=== PATIENT | female | born 1935 | race Caucasian/White ===

== ENCOUNTER 2016-08-03 10:17 | Outpatient (CLI) | payer MEDICARE, OTHER ==
--- NOTE | 2016-08-03 15:20 | XRAY Report ---
TWO VIEW CHEST: 08/03/2016 CLINICAL INDICATION: Cough. FINDINGS: Frontal and lateral views of the chest demonstrate a normal cardiac silhouette. The lungs are hyperinflated, but clear. No effusion or pneumothorax is present. IMPRESSION: HYPERINFLATION. NO EVIDENCE OF ACUTE CARDIOPULMONARY DISEASE. JOB #: [id number] EXT JOB #:[id number]
== END 2016-08-03 10:18 | disposition home or self-care (01) ==
LOC: DI 10:17
PROVIDERS: ATTEND Family Medicine
DX: R05 Cough (principal)
CPT/HCPCS: 71020

== ENCOUNTER 2017-05-26 12:40 | Outpatient (CLI) | payer MEDICARE, OTHER ==
--- NOTE | 2017-05-29 14:12 | DEXA Report ---
DEXA SCAN: 05/26/2017 CLINICAL INDICATION: Postmenopausal. TECHNIQUE: Dual energy x-ray absorptiometry (DXA) was performed on a [employer] system. Regions measured are the AP spine, femoral neck, and, if needed, forearm. COMPARISON: None. In accordance with the International Society for Clinical Densitometry (ISCD) guidelines, data from previous exams may be reanalyzed using current recommendations and techniques. This is done to allow a more accurate basis for comparison with the current study. FINDINGS Data for the lumbar spine is as follows: REGION BMD (g/cm/cm) T-SCORE Z-SCORE L1 0.753 -3.1 -0.4 L2 0.917 -2.4 0.4 L3 1.010 -1.6 1.1 L4 1.105 -0.8 1.9 L1-L4 0.951 -1.9 0.8 NOTE: All evaluable vertebrae are used for classification. Data for the hip is as follows: REGION BMD (g/cm/cm) T-SCORE Z-SCORE Neck 0.487 -4.0 -1.3 TOTAL 0.549 -3.6 -1.0 NOTE: The femoral neck or total proximal femur, whichever is lowest, is used for classification. IMPRESSION WHO CLASSIFICATION BASED ON THE INTERNATIONAL REFERENCE STANDARD IS OSTEOPOROSIS. FRACTURE RISK IS HIGH. RECOMMENDATION: Patients with diagnosis of osteoporosis or osteopenia should have regular bone mineral density assessment. For those eligible for Medicare, routine testing is allowed once every 2 years. Testing frequency can be increased for patients who have rapidly progressing disease or for those who are receiving medical therapy to restore bone mass. COMMENT World Health Organization (WHO) definitions for osteoporosis and osteopenia: NORMAL BMD: T-score at 1.0 or higher, fracture risk is low. OSTEOPENIA BMD: T-score between 1.0 and -2.5, fracture risk is increased. OSTEOPOROSIS BMD: T-score at 2.5 or lower, fracture risk high. National Osteoporosis Foundation recommends: 1. Obtain adequate dietary calcium (at least 1200 mg per day) and vitamin D (400 -800 international units per day). 2. Participate, as appropriate, in regular weightbearing and muscle- strengthening exercise. 3. Avoid tobacco use and reduce alcohol and caffeine intake. 4. For more detailed information see the website at www.NOF.org. TD: 05/27/2017 06:58 TU
== END 2017-05-26 12:41 | disposition home or self-care (01) ==
LOC: DI 12:40
PROVIDERS: ATTEND Family Medicine
DX: M81.0 Age-related osteoporosis without current pathological fracture (principal); Z78.0 Asymptomatic menopausal state
CPT/HCPCS: 77080

== ENCOUNTER 2017-09-21 13:37 | Outpatient (CLI) | payer MEDICARE, OTHER ==
--- NOTE | 2017-09-21 15:22 | XRAY Report ---
Procedure Date: 09/21/2017 Accession Number: [id number] / [id number] Procedure: XRN - Ankle 3 View LT CPT Code: FULL RESULT: EXAM: LEFT ANKLE RADIOGRAPHY EXAM DATE: 09/21/2017 02:04 PM. CLINICAL HISTORY: Foot and ankle pain after tripping over a rock. COMPARISON: FOOT 3 VIEW LT 09/21/2017. TECHNIQUE: 3 views. FINDINGS: Bones: Diffusely demineralized. No fractures or bone lesions. Joints: There is a tibiotalar joint effusion. No subluxations. The ankle mortise is normally aligned. Soft Tissues: There is soft tissue swelling around the lateral malleolus. IMPRESSION: 1. No acute osseous abnormality of the left ankle. Bones are diffusely demineralized. 2. A tibiotalar joint effusion is present. 3. There is soft tissue swelling of the lateral malleolus. RADIA
--- NOTE | 2017-09-21 15:23 | XRAY Report ---
Procedure Date: 09/21/2017 Accession Number: [id number] / [id number] Procedure: XRN - Foot 3 View LT CPT Code: FULL RESULT: EXAM: LEFT FOOT RADIOGRAPHY EXAM DATE: 09/21/2017 02:04 PM. CLINICAL HISTORY: Foot and ankle pain after tripping over a rock. COMPARISON: ANKLE 3 VIEW LT 09/21/2017. TECHNIQUE: 3 nonweightbearing views. FINDINGS: Bones: Diffusely demineralized. No fractures or bone lesions. Joints: No subluxation or dislocation. There is mild joint space narrowing, subchondral sclerosis, and marginal osteophyte formation at the first metatarsophalangeal joint. A tibiotalar joint effusion is present. Soft Tissues: Soft tissue swelling around the lateral malleolus is better seen on dedicated ankle radiographs. IMPRESSION: 1. No acute osseous abnormality. Bones are diffusely demineralized. 2. 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 3. A tibiotalar joint effusion is present. RADIA
== END 2017-09-21 13:38 | disposition home or self-care (01) ==
LOC: DI.N 13:37
PROVIDERS: ATTEND Family Medicine
DX: M19.072 Primary osteoarthritis, left ankle and foot (principal); M25.472 Effusion, left ankle; M81.0 Age-related osteoporosis without current pathological fracture

== ENCOUNTER 2017-12-22 10:59 | Outpatient (CLI) | payer MEDICARE, OTHER ==
--- NOTE | 2017-12-22 14:18 | Ultrasound Report ---
Reason: PVD Procedure Date: 12/22/2017 Accession Number: [id number] / [id number] Procedure: US - Duplex Lwr Ext Arterial RT CPT Code: FULL RESULT: EXAM: RIGHT LOWER EXTREMITY ARTERIAL DOPPLER ULTRASOUND EXAM DATE: 12/22/2017 11:42 AM. CLINICAL HISTORY: PVD. COMPARISON: None. TECHNIQUE: Real-time sonographic vascular imaging was performed by the on line csr, utilizing color-flow, Doppler flow, and spectral analysis. Multiple goodwill representative static images were saved for review. FINDINGS: All sampled vessels demonstrate expected arterial waveforms with preserved brisk arterial upstrokes throughout the right lower extremity. Vessels are patent by color Doppler and by subjective grayscale examination. Subjectively, there is mild to moderate atherosclerotic disease burden, predominantly of the echogenic shadowing variety. RIGHT: HANDBAG FRAMES INSPECTOR: 85 cm/sec. SFA Proximal: 73 cm/sec. SFA Mid: 79 cm/sec. SFA Distal: 52 cm/sec. PVA: 50 cm/sec. Popliteal: 38 cm/sec. ALYSE Distal: 54 cm/sec. MOLD FINISHER: 25 cm/sec. Peroneal Distal: 53 cm/sec. DPA: 7 cm/sec. IMPRESSION: Preserved 3 vessel outflow to the level of the ankle. Subjectively mild to moderate atherosclerotic disease. RADIA
== END 2017-12-22 11:00 | disposition home or self-care (01) ==
LOC: DI 10:59
PROVIDERS: ATTEND Family Medicine
DX: I70.201 Unspecified atherosclerosis of native arteries of extremities, right leg (principal)

== ENCOUNTER 2018-02-01 08:28 | Outpatient (CLI) | payer MEDICARE, OTHER | END 2018-02-01 08:29 | disposition critical access hospital (66) | LOC: EMS 08:28 | PROVIDERS: ATTEND Surgery | DX: R53.1 Weakness (principal); R19.7 Diarrhea, unspecified; R05 Cough | CPT/HCPCS: A0425; A0427 ==

== ENCOUNTER 2018-02-01 08:49 | Emergency (ER) | payer MEDICARE, OTHER ==
[2018-02-01] MEDS ORDERED: SODIUM CHLORIDE 0.9% 1,000 ML IV ONE (09:17)
[2018-02-01 09:23] LABS: BASOPHILS # (AUTO) 0.1 10^3/uL (0.0-0.1); BASOPHILS % (AUTO) 0.6 %; EOSINOPHILS % (AUTO) 0.2 %; HGB - HEMOGLOBIN 12.9 g/dL (12.0-16.0); LYMPHOCYTES # (AUTO) 1.3 10^3/uL (1.5-3.5); LYMPHOCYTES % (AUTO) 6.1 %; MEAN CORPUSCULAR HEMOGLOBIN 31.3 pg (27.0-31.0); MEAN CORPUSCULAR HGB CONC 33.5 g/dL (32.0-36.0); MEAN CORPUSCULAR VOLUME 93.4 fL (81.0-99.0); MEAN PLATELET VOLUME 8.9 fL (7.9-10.8); MONOCYTES # (AUTO) 2.1 10^3/uL (0.0-1.0); MONOCYTES % (AUTO) 9.8 %; NEUTROPHILS # (AUTO) 17.6 10^3/uL (1.5-6.6); NEUTROPHILS % (AUTO) 83.3 %; PLT - PLATELET COUNT 194 10^3/uL (130-450); RED BLOOD COUNT 4.14 10^6/uL (4.20-5.40); RED CELL DISTRIBUTION WIDTH 13.3 % (12.0-15.0); WHITE BLOOD COUNT 21.1 x10^3/uL (4.8-10.8)
--- NOTE | 2018-02-01 09:37 | XRAY Report ---
Reason: cough and dyspnea Procedure Date: 02/01/2018 Accession Number: [id number] / [id number] Procedure: XR - Chest 2 View X-Ray CPT Code: 86575 FULL RESULT: EXAM: CHEST RADIOGRAPHY EXAM DATE: 02/01/2018 09:24 AM. CLINICAL HISTORY: Cough and dyspnea. COMPARISON: CHEST 2 VIEW PA/LAT 08/03/2016 10:20 AM. TECHNIQUE: 2 views. FINDINGS: Lungs/Pleura: No focal opacities evident. No pleural effusion. No pneumothorax. Overall paucity of lung markings. Lung volumes are high with flattening of the diaphragms, stable compared to 2017 and most often seen with obstructive lung disease. Mediastinum: Heart and mediastinal contours are stable including subtle calcifications of the aortic arch. Other: None. IMPRESSION: COPD with no superimposed consolidative airspace disease. RADIA
[2018-02-01 09:42] LABS: RBC MORPHOLOGY (MULTIPLE) 2+ ANISOCYTOSIS (NORMAL)
--- NOTE | 2018-02-01 10:01 | ED Physician Documentation ---
History of Present Illness - Stated complaint Stated Complaint: WEAKNESS - Chief complaint Chief Complaint: Abd Pain - History obtained from History obtained from: Patient, EMS - Additonal information Additional information: The patient is an 82-year-old female who arrives via ambulance complaining of generalized weakness, with cough and shortness of breath. She has had a cough for about 2 weeks but it has become productive of sputum the past 3 days. She denies chest pain, and is uncertain whether or not she has had a fever. She has felt generally ill, with decreased appetite. She reports watery diarrhea for the past 2 days. She denies abdominal pain or vomiting. She denies headache or sore throat, and denies dysuria. She was recently treated with an oral antifungal medication for thrush. Past medical history is significant for COPD, and she continues to smoke cigarettes. She has history of IA and history of CVA. Review of Systems Constitutional: reports: Fever (Uncertain), Fatigue Ears: denies: Tinnitus/ringing Nose: denies: Congestion Throat: denies: Sore throat Cardiac: denies: Chest pain / pressure Respiratory: reports: Dyspnea, Cough GI: reports: Diarrhea. denies: Abdominal Pain, Nausea, Vomiting : denies: Dysuria Skin: denies: Rash Musculoskeletal: denies: Extremity swelling Neurologic: reports: Generalized weakness. denies: Focal weakness, Numbness, Headache PD PAST MEDICAL HISTORY - Past Medical History Cardiovascular: Hypertension, High cholesterol, [place] Respiratory: COPD Neuro: CVA Endocrine/Autoimmune: None GI: None SHANK RANDER: None : Incontinence HEENT: None Psych: None Musculoskeletal: Osteoarthritis Derm: None - Past Surgical History Past Surgical History: Yes /SHANK RANDER: Hysterectomy - Present Medications Home Medications: Ambulatory Orders Medication Instructions Recorded Confirmed Aspirin [Aspir 81] 81 mg PO DAILY 12/30/13 03/21/15 Carvedilol [Coreg] 12.5 mg PO BID 12/30/13 03/21/15 Clopidogrel [Plavix] 75 mg PO DAILY 12/30/13 03/21/15 Levalbuterol Tartrate [Xopenex Hfa] 1 inh PO QID 12/30/13 03/21/15 Losartan [Cozaar] 12.5 mg PO DAILY 12/30/13 03/21/15 Simvastatin [Zocor] 20 mg PO DAILY 12/30/13 03/21/15 Hydrocodone/Acetaminophen [[place] 1 each PO Q6H PRN #20 tablet 03/19/15 03/21/15 5-325 Tablet] Cholecalciferol (Vitamin D3) 1 mg PO DAILY 03/21/15 03/21/15 [Vitamin D] Cyanocobalamin (Vitamin B-12) 1 mg PO DAILY 03/21/15 03/21/15 [B-12] Multivit-Min/Iron Fum/Folic AC 1 mg PO DAILY 03/21/15 03/21/15 [Fzawb-Zdpsrks-Hhkdllmw Tablet] Nitroglycerin [Nitrostat] 1 mg SL DAILY 03/21/15 03/21/15 Oxycodone HCl/Acetaminophen 1 each PO Q6H PRN #14 tablet 03/21/15 [Percocet 5-325 mg Tablet] Tiotropium [place] [Spiriva 1 applic PO Q6H 03/21/15 03/21/15 Respimat] Azithromycin [Zithromax] 0 mg PO DAILY #6 tablet 02/01/18 Calcitonin,[place],Synthetic 02/01/18 [Calcitonin-[place]] Sodium Chloride [[place] Saline] 02/01/18 Teriparatide [[place]] 02/01/18 - Allergies Allergies/Adverse Reactions: Allergies Allergy/AdvReac Type Severity Reaction Status Date / Time Sulfa (Sulfonamide Allergy Unknown Unknown Verified 02/01/18 08:56 Antibiotics) tramadol HCl * [From Ultram] Allergy Unknown Unknown Verified 02/01/18 08:56 - Social History Does the pt smoke?: Yes Smoking Status: Current every day smoker Does the pt drink ETOH?: No Does the pt have substance abuse?: No - Immunizations Immunizations are current?: Yes - POLST Patient has POLST: No PD ED PE NORMAL - Vitals Vital signs reviewed: Yes (Hypertensive and tachypneic.) - General General: Alert and oriented X 3, Well developed/nourished, Other (Frail, elderly female.) - HEENT HEENT: Atraumatic, Pharynx benign - Neck Neck: Supple, no meningeal sign, No adenopathy, No JVD - Cardiac Cardiac: RRR, No murmur - Respiratory Respiratory: Clear bilaterally, Other (Tachypnea, with pursed lip breathing. No wheezes, rales, or rhonchi on auscultation.) - Abdomen Abdomen: Soft, Non tender - Back Back: No CVA TTP - Derm Derm: No rash - Extremities Extremities: No edema, No calf tenderness / cord - Neuro Neuro: Alert and oriented X 3, No motor deficit, Normal speech Results - Vitals Vitals: Oxygen O2 Source [With Activity] Room air O2 Source Room air - EKG (time done) 09:32 Rate: Rate (enter#) (84) Rhythm: NSR, CORTNEY [place]: RAD Intervals: Normal [place], RBBB, Other (LPFB) Ischemia: T wave inversion (in V2-V3.) Other comments: Other comments (Baseline wander.) - Labs Labs: Laboratory Tests 02/01/18 02/01/18 02/01/18 09:13 09:13 09:13 WBC 21.1 H RBC 4.14 L Hgb 12.9 Hct 38.6 MCV 93.4 MCH 31.3 H MCHC 33.5 RDW 13.3 Plt Count 194 MPV 8.9 Neut # (Auto) 17.6 H Lymph # (Auto) 1.3 L [place] # (Auto) 2.1 H Eos # (Auto) 0.0 Baso # (Auto) 0.1 Absolute Nucleated RBC 0.00 Nucleated RBC % 0.0 Manual Slide Review Indicated RBC Morph Micro Appear 2+ ANISOCYTOSIS Sodium 138 Potassium 3.7 Chloride 103 Carbon Dioxide 27 Anion Gap 8.0 BUN 20 Creatinine 0.6 Estimated GFR (MDRD) 96 Glucose 119 H Lactic Acid Calcium 9.2 Total Bilirubin 0.7 AST 29 ALT 14 Alkaline Phosphatase 55 Troponin I < 0.04 B-Natriuretic Peptide Total Protein 6.5 L Albumin 3.4 Globulin 3.1 Albumin/Globulin Ratio 1.1 Lipase 29 02/01/18 02/01/18 09:13 09:30 WBC RBC Hgb Hct MCV MCH MCHC RDW Plt Count MPV Neut # (Auto) Lymph # (Auto) [place] # (Auto) Eos # (Auto) Baso # (Auto) Absolute Nucleated RBC Nucleated RBC % Manual Slide Review RBC Morph Micro Appear Sodium Potassium Chloride Carbon Dioxide Anion Gap BUN Creatinine Estimated GFR (MDRD) Glucose Lactic Acid 1.0 Calcium Total Bilirubin AST ALT Alkaline Phosphatase Troponin I B-Natriuretic Peptide 206 H Total Protein Albumin Globulin Albumin/Globulin Ratio Lipase - Rads (name of study) 2-view CXR Radiology: Prelim report reviewed, EMP read contemporaneously, See rad report (COPD with no superimposed consolidative airspace disease.) PD MEDICAL DECISION MAKING - ED course Complexity details: reviewed old records, reviewed results, re-evaluated patient, considered differential, d/w patient ED course: The patient's presentation is most consistent with an acute exacerbation of COPD, with likely infectious component. Her chest x-ray does not reveal evidence of pneumonia, but she presents with productive cough, and a white blood cell count of 21.1. Her lactate level is normal at 1.0, and her chemistry panel is unremarkable, including troponin of less than 0.04. I doubt cardiac ischemia or pulmonary embolus. Treatment in the emergency department included administration of DuoNeb nebulizer, which improved her air movement. Ceftriaxone 1 g was administered IV. She is being discharged with prescription for Zithromax. I discussed with her antibiotic treatment, outpatient follow-up, as well as potentially worrisome signs or symptoms that should prompt reevaluation in the emergency department. Departure - Departure Disposition: 01 Home, Self Care Clinical Impression: COPD exacerbation, Dehydration Condition: Stable Instructions: ED COPD Flare Follow-Up: Sal Gage MD [Primary Care Provider] - Prescriptions: Azithromycin [Zithromax] 0 mg PO DAILY #6 tablet Comments: Take Zithromax daily as prescribed. Continue using your inhaler and nebulizer as previously prescribed. You can use Tylenol if needed for fever or discomfort. Follow-up with your primary physician within 1 week. Call to schedule appointment. Return to the emergency department if you develop increasing difficulty breathing, fever with shaking chills, or otherwise worsening symptoms. Discharge Date/Time: 02/01/18 13:49
[2018-02-01 10:03] LABS: ALBUMIN 3.4 g/dL (3.2-5.5); ALBUMIN/GLOBULIN RATIO 1.1 (1.0-2.2); BILIRUBIN,TOTAL 0.7 mg/dL (0.2-1.0); CALCIUM 9.2 mg/dL (8.5-10.3); CREATININE 0.6 mg/dL (0.4-1.0); TOTAL PROTEIN 6.5 g/dL (6.7-8.2)
[2018-02-01] MEDS ORDERED: cefTRIAXone 1 GM in SODIUM CHLORIDE 0.9% MINIBAG 100 ML IV STA (10:05)
[2018-02-01] MEDS ORDERED: IPRATROPIUM/ALBUTEROL 3 ML NEB INH STA (10:06)
[2018-02-01 13:47] VITALS: BP 105/63
== END 2018-02-01 13:49 | disposition home or self-care (01) ==
LOC: ED 08:49
DX: J44.1 Chronic obstructive pulmonary disease with (acute) exacerbation (principal); E86.0 Dehydration; I45.2 Bifascicular block; I49.3 Ventricular premature depolarization; E78.00 Pure hypercholesterolemia, unspecified; I25.2 Old myocardial infarction; F17.200 Nicotine dependence, unspecified, uncomplicated; Z86.73 Personal history of transient ischemic attack (TIA), and cerebral infarction without residual deficits; Z79.82 Long term (current) use of aspirin
CPT/HCPCS: 36415; 71046; 80053; 83605; 83690; 83880; 84484; 85025; 93005; 94640; 96361; 96365; 99284

== ENCOUNTER 2018-09-30 19:59 | Outpatient (CLI) | payer MEDICARE, OTHER | END 2018-09-30 20:00 | disposition critical access hospital (66) | LOC: EMS 19:59 | PROVIDERS: ATTEND Surgery | DX: R47.9 Unspecified speech disturbances (principal); R25.1 Tremor, unspecified; R21 Rash and other nonspecific skin eruption | CPT/HCPCS: A0425; A0427 ==

== ENCOUNTER 2018-09-30 20:22 | Observation (INO) | payer MEDICARE, OTHER ==
[2018-09-30] MEDS ORDERED: DOXEPIN 10 MG CAPSULE PO STA (20:39)
[2018-09-30] MEDS ORDERED: DEXAMETHASONE 10 MG/ML VIAL IVP STA (20:39)
[2018-09-30 20:47] LABS: BASOPHILS % (AUTO) 0.5 %; EOSINOPHILS # (AUTO) 0.4 10^3/uL (0.0-0.7); EOSINOPHILS % (AUTO) 4.8 %; HGB - HEMOGLOBIN 13.8 g/dL (12.0-16.0); LYMPHOCYTES # (AUTO) 2.2 10^3/uL (1.5-3.5); LYMPHOCYTES % (AUTO) 25.3 %; MEAN CORPUSCULAR HEMOGLOBIN 31.6 pg (27.0-31.0); MEAN CORPUSCULAR HGB CONC 32.5 g/dL (32.0-36.0); MEAN CORPUSCULAR VOLUME 97.3 fL (81.0-99.0); MEAN PLATELET VOLUME 10.6 fL (7.9-10.8); MONOCYTES # (AUTO) 0.9 10^3/uL (0.0-1.0); MONOCYTES % (AUTO) 10.7 %; NEUTROPHILS # (AUTO) 5.1 10^3/uL (1.5-6.6); NEUTROPHILS % (AUTO) 58.2 %; PLT - PLATELET COUNT 253 10^3/uL (130-450); RED BLOOD COUNT 4.37 10^6/uL (4.20-5.40); RED CELL DISTRIBUTION WIDTH 12.7 % (12.0-15.0); WHITE BLOOD COUNT 8.8 x10^3/uL (4.8-10.8)
--- NOTE | 2018-09-30 20:48 | ED Physician Documentation ---
History of Present Illness - Stated complaint Stated Complaint: CONFUSION/ GEN ILLNESS - Chief complaint Chief Complaint: Wound - History obtained from History obtained from: Patient - Treatment prior to arrival Treatment prior to arrival: She also notes an episode tonight that lasted about 10 or 15 minutes where she had difficulty coordinating with the right hand and garbled speech. She feels like that is all gone now. She did have a stroke about 7 years ago and does take aspirin - Additonal information Additional information: This is a very pleasant 82-year-old woman with history of COPD who presents by ambulance for itching and burning of the skin as well as cracking. She was seen by her physician about a week and a half ago for what she thought was a yeast infection. She was prescribed Diflucan, once a day for 10 days. By day 3 or 4 she was developing severe itching and burning of her skin especially in the forearms but also a little bit in the face and back and less of the legs. She is taking Benadryl for this without relief. She feels miserable from the itching. She has a little more shortness of breath than normal and a dry cough, no production. No fevers. Review of Systems Constitutional: reports: Reviewed and negative Throat: reports: Reviewed and negative Cardiac: denies: Chest pain / pressure, Palpitations Respiratory: reports: Dyspnea, Cough. 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 : Incontinence HEENT: None Psych: None Musculoskeletal: Osteoarthritis Derm: None - Past Surgical History Past Surgical History: Yes /BUSINESS PROCESS REPRESENTATIVE: Hysterectomy - Present Medications Home Medications: Ambulatory Orders Medication Instructions Recorded Confirmed Aspirin [Aspir 81] 81 mg PO DAILY 12/30/13 03/21/15 Carvedilol [Coreg] 12.5 mg PO BID 12/30/13 03/21/15 Clopidogrel [Plavix] 75 mg PO DAILY 12/30/13 03/21/15 Levalbuterol Tartrate [Xopenex Hfa] 1 inh PO QID 12/30/13 03/21/15 Losartan [Cozaar] 12.5 mg PO DAILY 12/30/13 03/21/15 Simvastatin [Zocor] 20 mg PO DAILY 12/30/13 03/21/15 Hydrocodone/Acetaminophen [[place] 1 each PO Q6H PRN #20 tablet 03/19/15 03/21/15 5-325 Tablet] Cholecalciferol (Vitamin D3) 1 mg PO DAILY 03/21/15 03/21/15 [Vitamin D] Cyanocobalamin (Vitamin B-12) 1 mg PO DAILY 03/21/15 03/21/15 [B-12] Multivit-Min/Iron Fum/Folic AC 1 mg PO DAILY 03/21/15 03/21/15 [Brnnf-Hhqrnxr-Abkbjhep Tablet] Nitroglycerin [Nitrostat] 1 mg SL DAILY 03/21/15 03/21/15 Oxycodone HCl/Acetaminophen 1 each PO Q6H PRN #14 tablet 03/21/15 [Percocet 5-325 mg Tablet] Tiotropium [place] [Spiriva 1 applic PO Q6H 03/21/15 03/21/15 Respimat] Calcitonin,[place],Synthetic 02/01/18 [Calcitonin-[place]] Sodium Chloride [[place] Saline] 02/01/18 Teriparatide [[place]] 02/01/18 - Allergies Allergies/Adverse Reactions: Allergies Allergy/AdvReac Type Severity Reaction Status Date / Time Sulfa (Sulfonamide Allergy Unknown Unknown Verified 09/30/18 20:51 Antibiotics) tramadol HCl * [From Ultram] Allergy Unknown Unknown Verified 09/30/18 20:51 - Social History Does the pt smoke?: Yes Smoking Status: Current every day smoker Does the pt drink ETOH?: No Does the pt have substance abuse?: No - Immunizations Immunizations are current?: Yes - POLST Patient has POLST: No PD ED PE NORMAL - Vitals Vital signs reviewed: Yes - General General: Alert and oriented X 3, Other (She is thin with slight pursed lip breathing but speaking in full sentences) - HEENT HEENT: PERRL, EOMI - Neck Neck: Supple, no meningeal sign, No bony TTP - Cardiac Cardiac: RRR, No murmur - Respiratory Respiratory: Other (Diminished and wheezy neck, nothing focal, nonlabored) - Abdomen Abdomen: Soft, Non tender - Back Back: No CVA TTP, No spinal TTP - Derm Derm: Other (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, and a papular rash on the forearms and less of the face and legs.) - Extremities Extremities: No edema, No calf tenderness / cord - Neuro Neuro: Alert and oriented X 3, trauma director 2-12 intact, No motor deficit, No sensory deficit, Normal speech, Other (NIHSS zero) Eye Opening: Spontaneous Motor: Obeys Commands Results - Vitals Vitals: Vital Signs - 24 hr 09/30/18 09/30/18 20:25 21:11 Temperature 36.6 C Heart Rate 87 83 Respiratory 17 28 H Rate Blood Pressure 156/94 H 138/78 H O2 Saturation 95 94 Oxygen O2 Source [] Room air O2 Source Room air - EKG (time done) 2111 Rate: Rate (enter#) (82) Rhythm: NSR [place]: Normal Intervals: Normal [place], RBBB, Other (LPFB) QRS: Normal Ischemia: Q waves (anteroseptal). No: ST elevation c/w ischemia Computer interpretation: Agree with computer - Labs Labs: Laboratory Tests 09/30/18 09/30/18 20:30 20:30 WBC 8.8 RBC 4.37 Hgb 13.8 Hct 42.5 MCV 97.3 MCH 31.6 H MCHC 32.5 RDW 12.7 Plt Count 253 MPV 10.6 Neut # (Auto) 5.1 Lymph # (Auto) 2.2 [place] # (Auto) 0.9 Eos # (Auto) 0.4 Baso # (Auto) 0.0 Absolute Nucleated RBC 0.00 Nucleated RBC % 0.0 Sodium 143 Potassium 4.0 Chloride 108 Carbon Dioxide 28 Anion Gap 7.0 BUN 10 Creatinine 0.6 Estimated GFR (MDRD) 96 Glucose 115 H Calcium 9.3 Total Bilirubin 0.2 AST 20 ALT 12 Alkaline Phosphatase 51 Total Protein 6.4 L Albumin 3.8 Globulin 2.6 Albumin/Globulin Ratio 1.5 Lipase 38 - Rads (name of study) CT head Radiology: EMP read contemporaneously (NAD) PD MEDICAL DECISION MAKING - ED course ED course: 82-year-old woman with history of stroke on aspirin and Plavix presents with a 10 to 15-minute episode of garbled speech and difficulty with the right hand this evening consistent with a TIA. Her symptoms have completely resolved and her NIH stroke scale here is 0 with a negative head CT. She also has an ancillary complaint of a very itchy rash on her arms after being on Diflucan which she has since stopped for that. For this she was administered dexamethasone and doxepin. Spoke with Dr. Trevizo for observation because of the TIA at 9:57 PM. Departure - Departure Disposition: ED Place in Observation Clinical Impression: TIA (transient ischemic attack), Rash and nonspecific skin eruption Condition: Stable
[2018-09-30 21:00] LABS: ALBUMIN 3.8 g/dL (3.2-5.5); ALBUMIN/GLOBULIN RATIO 1.5 (1.0-2.2); BILIRUBIN,TOTAL 0.2 mg/dL (0.2-1.0); CALCIUM 9.3 mg/dL (8.5-10.3); CREATININE 0.6 mg/dL (0.4-1.0); TOTAL PROTEIN 6.4 g/dL (6.7-8.2)
--- NOTE | 2018-09-30 21:48 | CT Report ---
Reason: TIA Procedure Date: 09/30/2018 Accession Number: [id number] / [id number] Procedure: CT - HEAD WO CPT Code: FULL RESULT: EXAM: CT HEAD EXAM DATE: 09/30/2018 09:36 PM. CLINICAL HISTORY: TIA. COMPARISON: None. TECHNIQUE: Multiaxial CT images were obtained from the foramen magnum to the vertex. Reformats: Sagittal and coronal. IV contrast: None. In accordance with CT protocol optimization, one or more of the following dose reduction techniques were utilized for this exam: automated exposure control, adjustment of mA and/or KV based on patient size, or use of iterative reconstructive technique. FINDINGS: Parenchyma: No intraparenchymal hemorrhage. No evidence of mass, midline shift, or CT findings of infarction. Jung-white differentiation is distinct. Extraaxial Spaces: Normal for age. No subdural or epidural collections identified. Ventricles: Normal in size and position. Sinuses and Orbits: Imaged paranasal sinuses, orbits, and mastoids show no significant abnormality. Bones: No evidence of fracture or calvarial defect. Other: None. IMPRESSION: No acute intracranial abnormality. RADIA
[2018-09-30] MEDS ORDERED: ASPIRIN CHEW 81 MG TABLET PO STA (21:56)
[2018-09-30] MEDS ORDERED: SODIUM CHLORIDE FLUSH 0.9% 10 ML SYRINGE IVP PRN (21:58)
[2018-09-30 22:04] LABS: BILIRUBIN,URINE NEGATIVE (NEGATIVE); GLUCOSE, URINE (UA) NEGATIVE (NEGATIVE); KETONES,URINE (UA) NEGATIVE (NEGATIVE); LEUKOCYTE ESTERASE, URINE SMALL (NEGATIVE); NITRITE,URINE NEGATIVE (NEGATIVE); OCCULT BLOOD,URINE SMALL (NEGATIVE); PROTEIN,URINE NEGATIVE (NEGATIVE); UROBILINOGEN,URINE 0.2 (NORMAL) E.U./dL (NORMAL)
[2018-09-30 22:08] LABS: CLARITY,URINE CLEAR (CLEAR)
[2018-09-30] MEDS ORDERED: ATORVASTATIN 40 MG TABLET PO STA (22:08)
[2018-09-30 22:18] LABS: RBC,URINE 0-5 /HPF (0-5)
[2018-09-30 22:19] LABS: BACTERIA,URINE None Seen /HPF (None Seen); SQUAMOUS EPITHELIAL CELL,UR RARE Squamous (<= Few)
[2018-09-30] MEDS: SODIUM CHLORIDE 0.9% 1,000 ML IV SCH (22:46)
--- NOTE | 2018-09-30 23:45 | HISTORY & PHYSICAL EXAMINATION ---
Chief Complaint - Chief Complaint Chief Complaint: right hand weakness, slurred speech, itching History of Present Illness - Admitted From Admitted From:: [facility] ED - History Obtained From Records Reviewed: yes History obtained from: patient - History of Present Illness HPI Comment/Other: Patient seen on 09/30/18 at 2245pm. Patient is a 82 y/o female who presented to the ED with complain of slurred speech and difficulty using her right hand. This happened around 6:30pm and lasted for about 10-15 mins. Symptoms had completely resolved upon presentation to the ED. She has a history of CVA in the past with no residual deficits. On a separate note she also complained of burning, redness, itching and peeling of her skin. She was placed on a 10 day course of diflucan for a yeast infection. She denied any other new medications, lotions or detergents. She denied chest pain. She reports feeling dyspneic, however she appears to be breathing comfortably on room air. She denied abdominal pain or vomiting but reports nausea and diarrhea. She reports chills but no fever. The rest of her history is unremarkable. As a result of her initial presentation, she is being admitted for further work up. History - Past Medical History Cardiovascular: reports: Hypertension, High cholesterol, MS Respiratory: reports: COPD Neuro: reports: CVA Endocrine/Autoimmune: reports: None GI: reports: None [employer]: reports: None : reports: Incontinence HEENT: reports: None Psych: reports: None Musculoskeletal: reports: Osteoarthritis Derm: reports: None MRSA Hx?: No - Past Surgical History /[employer]: reports: Hysterectomy - Family & Social History Family History Comment/Other: Extensive family history of heart disease and diabetes. She had 8 children. A son from lung cancer at age 59 Living arrangement: At home Living Situation: With spouse/s.o. Social History Notes: She lives with her in [place] and has 2 dogs. She smokes about 1ppd for about 60+ years. She denies alcohol or illicit drugs - POLST Patient has POLST: No POLST Status: DNR Meds/Allgy - Home Medications Home Medications: Ambulatory Orders Medication Instructions Recorded Confirmed Aspirin [Aspir 81] 81 mg PO DAILY 12/30/13 03/21/15 Carvedilol [Coreg] 12.5 mg PO BID 12/30/13 03/21/15 Clopidogrel [Plavix] 75 mg PO DAILY 12/30/13 03/21/15 Levalbuterol Tartrate [Xopenex Hfa] 1 inh PO QID 12/30/13 03/21/15 Losartan [Cozaar] 12.5 mg PO DAILY 12/30/13 03/21/15 Simvastatin [Zocor] 20 mg PO DAILY 12/30/13 03/21/15 Hydrocodone/Acetaminophen [[place] 1 each PO Q6H PRN #20 tablet 03/19/15 03/21/15 5-325 Tablet] Cholecalciferol (Vitamin D3) 1 mg PO DAILY 03/21/15 03/21/15 [Vitamin D] Cyanocobalamin (Vitamin B-12) 1 mg PO DAILY 03/21/15 03/21/15 [B-12] Multivit-Min/Iron Fum/Folic AC 1 mg PO DAILY 03/21/15 03/21/15 [Cldrc-Fhbblsr-Rdqknygc Tablet] Nitroglycerin [Nitrostat] 1 mg SL DAILY 03/21/15 03/21/15 Oxycodone HCl/Acetaminophen 1 each PO Q6H PRN #14 tablet 03/21/15 [Percocet 5-325 mg Tablet] Tiotropium [place] [Spiriva 1 applic PO Q6H 03/21/15 03/21/15 Respimat] Calcitonin,[place],Synthetic 02/01/18 [Calcitonin-[place]] Sodium Chloride [[place] Saline] 02/01/18 Teriparatide [[place]] 02/01/18 - Allergies Allergies/Adverse Reactions: Allergies Allergy/AdvReac Type Severity Reaction Status Date / Time Sulfa (Sulfonamide Allergy Unknown Unknown Verified 09/30/18 20:51 Antibiotics) tramadol HCl * [From Ultram] Allergy Unknown Unknown Verified 09/30/18 20:51 Review of Systems - Constitutional Constitutional: reports: Chills, Poor appetite. denies: Fever - Eyes Eyes: denies: Blurred vision, Vision loss, Dipolpia - Ears, Nose & Throat Ears, Nose & Throat: denies: Vertigo, Nasal discharge, Sore throat, Hoarseness - Cardiovascular Cariovascular: denies: Chest pain, Lightheadedness, Syncope - Respiratory Respiratory: denies: Cough, Wheezing, SOB with exertion - Gastrointestinal Gastrointestinal: reports: Diarrhea, Nausea. denies: Abdominal pain, Vomiting, Coffee grounds emesis, Reflux/heartburn - Genitourinary Genitourinary: denies: Dysuria, Frequency, Urgency, Hematuria - Musculoskeletal Musculoskeletal: denies: Muscle pain, Back pain, Muscle aches - Integumentary Integumentary: reports: Rash, Pruritis, Dryness, Other (peeling of) - Neurological Neurological: reports: Slurred speech. denies: General weakness, Focal weakness, Headache, Dizziness, Memory problems, Seizures - Psychiatric Psychiatric: denies: Depression, Anxiety - Endocrine Endocrine: denies: Polyuria, Polydypsia - Hematologic/Lymphatic Hematologic/Lymphatic: denies: Anemia, Bruising, Petechiae Prior Level of Functionality: She is independent of activities of daily living Exam - Vital Signs Vital Signs: Vital Signs x48h Temp Pulse Pulse Resp BP BP Pulse Ox 09/30/18 22:43 36.8 C 93 24 131/68 H 93 09/30/18 22:19 36.5 C 94 28 H 119/75 94 09/30/18 22:04 96 26 H 119/75 94 09/30/18 21:11 83 28 H 138/78 H 94 09/30/18 20:25 36.6 C 87 17 156/94 H 95 - Physical Exam General Appearance: positive: No acute distress, Alert Eyes Bilateral: positive: PERRL, EOMI ENT: positive: ENT inspection nml, Pharynx nml Neck: positive: Nml inspection, No JVD, Trachea midline Respiratory: positive: Chest non-tender, No respiratory distress. negative: Wheezes, Rales, Rhonchi Cardiovascular: positive: Regular rate & rhythm Abdomen: positive: Non-tender, No organomegaly, Nml bowel sounds, No distention. negative: Guarding, Rebound Back: positive: Nml inspection Skin: positive: Warm, Dry, Other (erythematous spots with extensive peeling of dry skin all over body) Extremities: positive: Non-tender, Full ROM, Nml appearance, No pedal edema Neurologic/Psychiatric: positive: Oriented x3, CN's nml (2-12), Motor nml, Sensation nml, Mood/affect nml Conclusion/Plan - Problem List (1) TIA (transient ischemic attack) Conclusion/Plan: CT brain w/o contrast was unremarkable. MRI brain w/o contrast 2D echo, Carotid dopplers, lipid panel. Neuro checks q4hrs Will resume statin, aspirin and plavix once verified (2) Rash and nonspecific skin eruption Conclusion/Plan: Suspect 2/2 medication ?Diflucan. Medication stopped Patient given decadron and doxepan in the ED Will continue monitoring. (3) Hx of coronary artery disease Conclusion/Plan: On aspirin, plavix, simvastatin, losartan and carvedilol (4) Hypertension Conclusion/Plan: On losartan and carvedilol (5) COPD exacerbation Conclusion/Plan: Not in exacerbation On xopenex (6) Anxiety Conclusion/Plan: On alprazolam (7) Osteoporosis Conclusion/Plan: On Vit D, calcitonin and forteo - Lab Results Fish Bones: 10/01/18 05:48 10/01/18 05:48 Core Measures - Anticipated LOS I expect patient to be DC'd or transferred within 96 hours.: Yes - DVT/VTE - Prophylaxis VTE/DVT Device ordered at admit?: Yes VTE/DVT Prophylaxis med ordered at admit?: Yes
[2018-10-01] MEDS ORDERED: LEVALBUTEROL 1.25 MG/3 ML NEB INH STA (00:28)
[2018-10-01] MEDS: SODIUM CHLORIDE FLUSH 0.9% 10 ML SYRINGE IVP SCH ×3 (01:00→16:08)
[2018-10-01] MEDS: SODIUM CHLORIDE 0.9% 1,000 ML IV SCH ×2 (03:08→16:04)
[2018-10-01 06:01] LABS: BASOPHILS % (AUTO) 0.2 %; EOSINOPHILS % (AUTO) 1.4 %; HGB - HEMOGLOBIN 12.4 g/dL (12.0-16.0); LYMPHOCYTES % (AUTO) 10.8 %; MEAN CORPUSCULAR HEMOGLOBIN 31.1 pg (27.0-31.0); MEAN PLATELET VOLUME 10.3 fL (7.9-10.8); MONOCYTES % (AUTO) 1.1 %; NEUTROPHILS % (AUTO) 86.2 %; PLT - PLATELET COUNT 202 10^3/uL (130-450); RED BLOOD COUNT 3.99 10^6/uL (4.20-5.40); RED CELL DISTRIBUTION WIDTH 12.5 % (12.0-15.0); WHITE BLOOD COUNT 6.3 x10^3/uL (4.8-10.8)
[2018-10-01 06:03] LABS: ABNORMAL LYMPHS % (MANUAL) 0 %; BAND NEUTROPHILS % (MANUAL) 0 %
[2018-10-01 06:11] LABS: CALCIUM 8.7 mg/dL (8.5-10.3); CREATININE 0.7 mg/dL (0.4-1.0)
[2018-10-01 06:20] LABS: CHOL/HDL RATIO 2.2 (<4.4); CHOLESTEROL 122 mg/dL; HDL CHOLESTEROL 56 mg/dL
[2018-10-01 06:33] LABS: HB2 TOTAL 12.5 g/dL; HEMOGLOBIN A1C 0.47 g/dL; HEMOGLOBIN A1C % 5.6 % (4.6-6.2)
[2018-10-01 06:43] LABS: LYMPHOCYTES # (MANUAL) 0.9 10^3/uL (1.5-3.5); LYMPHOCYTES % (MANUAL) 14 %
[2018-10-01 06:45] LABS: DIFFERENTIAL COMMENT MANUAL DIFFERENTIAL; PLATELET ESTIMATE, MANUAL NORMAL (130-450,000) (NORMAL); PLATELET MORPHOLOGY NORMAL APPEARANCE (NORMAL); RBC MORPHOLOGY (MULTIPLE) NORMAL APPEARANCE (NORMAL)
[2018-10-01] MEDS ORDERED: IPRATROPIUM/ALBUTEROL 3 ML NEB INH PRN (08:05)
[2018-10-01] MEDS ORDERED: HYDROcod/ACETAM 5/325 MG TABLET PO PRN (08:07)
[2018-10-01] MEDS ORDERED: NITROGLYCERIN SL 0.4 MG TABLET SL PRN (08:08)
[2018-10-01] MEDS ORDERED: POLYETHYLENE GLYCOL 3350 17 GM PACKET PO SCH (09:00)
[2018-10-01] MEDS ORDERED: ASPIRIN CHEW 81 MG TABLET PO SCH (09:00)
[2018-10-01] MEDS ORDERED: CLOPIDOGREL 75 MG TABLET PO SCH (09:00)
[2018-10-01] MEDS ORDERED: HEPARIN 5,000 UNIT/ML VIAL SUBQ SCH (09:00)
--- NOTE | 2018-10-01 09:02 | XRAY Report ---
Reason: reported chill, SOB Procedure Date: 10/01/2018 Accession Number: [id number] / [id number] Procedure: XR - Chest 1 View X-Ray CPT Code: 97720 FULL RESULT: EXAM: CHEST RADIOGRAPHY EXAM DATE: 10/01/2018 08:35 AM. CLINICAL HISTORY: Reported chill, shortness of breath. COMPARISON: CHEST 2 VIEW 02/01/2018 9:16 AM. CHEST 2 VIEW PA/LAT 08/03/2016 10:20 AM. TECHNIQUE: 1 view. FINDINGS: Lungs/Pleura: Lung volumes are again demonstrated to be high. No lobar consolidation or overt pulmonary edema. No pleural effusion or pneumothorax. There is a long-standing S-shaped linear density projecting over the medial right upper lobe which transects a triangular opacity measuring up to 1 cm, more prominent on today's study. Given that the horizontal fissure is seen in the expected location, this finding may represent scarring or accessory fissure with a potential solid soft tissue component. Alternatively, the apparent triangular nodularity may represent confluence of shadows due to technique/positioning. Mediastinum: Within exam limitations, the cardiomediastinal contour is stable and not enlarged, calcified aortic arch. Other: None. IMPRESSION: Question right upper lobe pulmonary nodule as described. This is amenable to definitive characterization by noncontrast CT of the chest. High lung volumes otherwise with no definite acute cardiopulmonary abnormality. RADIA
[2018-10-01] MEDS ORDERED: IPRATROPIUM 0.2 MG/ML NEB INH PRN (10:18)
[2018-10-01] MEDS ORDERED: LEVALBUTEROL 1.25 MG/3 ML NEB INH PRN (10:19)
--- NOTE | 2018-10-01 10:57 | CT Report ---
Reason: nodule Procedure Date: 10/01/2018 Accession Number: [id number] / [id number] Procedure: CT - CHEST WO CPT Code: FULL RESULT: EXAM: CT CHEST EXAM DATE: 10/01/2018 10:02 AM. CLINICAL HISTORY: Nodule. COMPARISONS: CHEST W/ 02/21/2015 5:32 AM CHEST 1 VIEW 10/01/2018 8:12 AM. TECHNIQUE: Routine helical CT imaging was performed through the chest. IV contrast: None. Reconstructions: Coronal and sagittal. In accordance with CT protocol optimization, one or more of the following dose reduction techniques were utilized for this exam: automated exposure control, adjustment of mA and/or KV based on patient size, or use of iterative reconstructive technique. FINDINGS: Lungs/Pleura: The radiographic finding in question is accounted for by an accessory fissure containing the azygous vein, configuration unchanged from the chest CT in 2016. Therefore, radiographic differences were likely projectional. Incidentally noted are scattered pulmonary nodules measuring up to 4 mm. Right upper lobe image 11 series 4 measuring 4 mm, 4 mm nodule on image 12, 3 mm nodule on image 28. Right lower lobe 3 mm nodule image 37, 2 mm nodule image 38, 2 mm nodule image 51. Left upper lobe nodule measuring 4 mm on image 14, 2 mm nodule image 17, 2 mm nodule image 26, 3 mm perifissural nodule image 28, 3 mm nodule image 43. Scant subsegmental consolidation or atelectasis is also seen in the right middle lobe and lingula. No pleural effusion or pneumothorax. Mediastinum: There is moderate aortic atherosclerotic disease as well as moderate coronary calcifications. A few prominent mediastinal lymph nodes do not meet size criteria. There is no definite hilar lymphadenopathy. Bones: No aggressive osseous lesions. Visualized Abdomen: Unremarkable. Other: None. IMPRESSION: The previously seen chest radiographic finding was the result of a variant anatomy and projection. Recommend follow-up of the described nodule(s) according to the following guidelines: Fleischner Society Recommendations 2017 MacMahon et al. Radiology 2017 Solid Nodules-Low Risk Patients: <6 mm (single or multiple) - No routine follow-up* Solid Nodules-High Risk Patients: <6 mm (single or multiple) -Optional CT at 12 months* *Nodules < 6mm do not require routine follow-up, but suspicious nodule morphology, upper lobe location, or both may warrant 12 month follow-up RADIA
--- NOTE | 2018-10-01 12:01 | MRI Report ---
Reason: TIA w/u. Garbled speech, difficulty using right henriquez Procedure Date: 10/01/2018 Accession Number: [id number] / [id number] Procedure: MRI - Brain W/O CPT Code: FULL RESULT: EXAM: MRI BRAIN WITHOUT CONTRAST EXAM DATE: 10/01/2018 11:43 AM. CLINICAL HISTORY: TIA w/u. Garbled speech, difficulty using right hand. COMPARISON: CT HEAD W/O 09/30/2018 9:23 PM. TECHNIQUE: Multiplanar, multisequence T1-weighted and fluid-sensitive MR sequences of the brain were performed. Sequences optimized for routine evaluation. Other: None. IV Contrast: None. FINDINGS: Diffusion weighted sequence demonstrate punctate foci of diffusion restriction in the left precentral gyrus, left post central gyrus (144 and 152: Series 305 ), cortical infarct in the left parietal lobe left parietal lobe (112: 305). These are compatible with acute infarcts in the left MCA territory. T2 FLAIR sequence shows a chronic cortical infarct in the posterior left middle frontal gyrus (19: 501). Scattered T2 FLAIR hyperintensities are seen in the subcortical frontal, parietal and periventricular parietal lobes bilaterally, nonspecific but most compatible with chronic microvascular angiopathy. Gradient echo sequence demonstrates a focus of chronic microhemorrhage seen in the subcortical right frontal lobe (12: 401). No evidence to suggest acute hemorrhage. There is no mass-effect or midline shift or hydrocephalus. Major intracranial flow voids are preserved. Orbits, optic nerve sheath complex, the chiasm, pituitary, cavernous sinus and Meckel's cave appear normal. Marrow signal and extracranial soft tissue unremarkable. IMPRESSION: 1. Multifocal small recent infarcts in the left precentral, and left parietal cortices, in the left MCA territory. 2. Chronic microhemorrhage in the subcortical right frontal lobe, likely from hypertension. 3. No acute hemorrhage, midline shift or hydrocephalus. 4. 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 RADIA The critical result notification system was initiated by Dr. Jc Alba at 11:54 AM on 10/01/2018. The above critical result findings were discussed with Dr. Brunner by Dr. Jc Alba at 11:57 AM on 10/01/2018.
--- NOTE | 2018-10-01 14:41 | Discharge Plan ---
Discharge Plan Problem Reviewed?: Yes Disposition: Home, Self Care Condition: Poor Prescriptions: Aspirin 325 mg PO DAILY #10 tablet Pantoprazole Sodium [Protonix] 20 mg PO DAILY #10 tablet. Diet: Regular Activity Restrictions: Activity as Tolerated Shower Restrictions: No (fall precaution) Instruction Topics: Pantoprazole tablets, Aspirin ASA chewable tablets Health Concerns: stroke Plan of Treatment: You was found to have multifocal small recent stroke in MRI. your focal neurological deficit symptoms were resolved in the hospital. your Aspirin dosage increase to 325 mg daily. Care Goals: stabilization and improvement of your medical conditions. Assessment: assessment as the above Additional Instructions or Follow Up instructions: you may followup your PCP in one week, followup neurologist as out-pt. Should your symptoms return or worsen, you may present ER or call 911 for help. No Smoking: If you smoke, Please STOP! Call for help. Follow-up with: Sal Gage MD [Primary Care Provider] -
--- NOTE | 2018-10-01 15:59 | Ultrasound Report ---
Reason: TIA work up Procedure Date: 10/01/2018 Accession Number: [id number] / [id number] Procedure: US - Carotid Doppler Complete CPT Code: FULL RESULT: EXAM: BILATERAL CAROTID AND VERTEBRAL ARTERY DUPLEX DOPPLER ULTRASOUND: EXAM DATE: 10/01/2018 01:00 PM CLINICAL HISTORY: TIA workup. COMPARISON: BRAIN W/O 10/01/2018 11:29 AM. ECHO COMPLETE 10/01/2018 11:21 AM. TECHNIQUE: Grayscale imaging, color Doppler, and duplex spectral Doppler were used to evaluate the carotid and vertebral arteries bilaterally. Static images were obtained. FINDINGS: There is mild bilateral intimal thickening in the bulb regions. No significant plaque is identified in the right or left common or internal carotid arteries. Normal antegrade flow is present in bilateral vertebral arteries. VELOCITIES (cm/sec): Right CCA mid: PSV 77 cm/sec CCA dist: PSV 60 cm/sec ICA prox: PSV 70 cm/sec, EDV 9 cm/sec ICA mid: PSV 56 cm/sec, EDV 16 cm/sec ICA dist: PSV 55 cm/sec, EDV 11 cm/sec ECA: PSV 78 cm/sec Vert: PSV 35 cm/sec ICA/CCA: 0.9 Left CCA mid: PSV 62 cm/sec CCA dist: PSV 59 cm/sec ICA prox: PSV 56 cm/sec, EDV 17 cm/sec ICA mid: PSV 71 cm/sec, EDV 20 cm/sec ICA dist: PSV 63 cm/sec, EDV 21 cm/sec ECA: PSV 100 cm/sec Vert: PSV 49 cm/sec ICA/CCA: 1.2 ICA diameter stenosis: Right: <50% by velocity and <70% by NASCET criteria. Left: <50% by velocity and <70% by NASCET criteria. IMPRESSION: 1. No significant bilateral carotid artery plaquing. 2. In the right carotid artery there are no elevated carotid artery velocities to suggest hemodynamically significant stenosis. 3. In the left carotid artery there are no elevated carotid artery velocities to suggest hemodynamically significant stenosis. 4. Normal antegrade flow is present in bilateral vertebral arteries. General Recommendations: Stenosis =50% ICA - Follow-up ultrasound 6-12 months Stenosis <50% ICA - High Risk Patient with plaque - Follow-up ultrasound 1-2 years Normal Study but High Risk Patient - Follow-up ultrasound 3-5 years Management recommendations and diagnostic criteria are based on current IAC endorsed standards in Carotid Artery Stenosis: Grayscale and Doppler Ultrasound Diagnosis. Validated velocity measurements with angiographic measurements and velocity criteria are extrapolated from diameter data as defined by the Society of Radiologists in Ultrasound Consensus Conference Radiology 2003; 229;340-346. RADIA
--- NOTE | 2018-10-01 16:41 | DISCHARGE SUMMARY ---
Discharge Summary Discharge Date: 10/01/18 Discharging Provider: GIBSON Primary Care Provider: Condition at Discharge: Poor Discharge Disposition: 01 Home, Self Care Discharge Facility Name: home - DIAGNOSES Admission Diagnoses: (1) TIA (transient ischemic attack) (2) Rash and nonspecific skin eruption (3) Hx of coronary artery disease (4) Hypertension (5) COPD exacerbation (6) Anxiety (7) Osteoporosis Discharge Diagnoses with Status of Each Condition: (1)stroke stable. pt was as her baseline. pt has no acute focal neurological deficits. PT/OT evaluated and treated pt, and released pt. MRI found pt had multifocal small recent infarction at left brain. (2) Rash and nonspecific skin eruption resolved (3) Hx of coronary artery disease stable (4) Hypertension stable (5) COPD stable (6) Anxiety stable (7) Osteoporosis stable - HPI History of Present Illness: refer from Dr. Trevizo's HPI on 09/30/18 Patient seen on 09/30/18 at 2245pm. Patient is a 82 y/o female who presented to the ED with complain of slurred speech and difficulty using her right hand. This happened around 6:30pm and lasted for about 10-15 mins. Symptoms had completely resolved upon presentation to the ED. She has a history of CVA in the past with no residual deficits. On a separate note she also complained of burning, redness, itching and peeling of her skin. She was placed on a 10 day course of diflucan for a yeast infection. She denied any other new medications, lotions or detergents. She denied chest pain. She reports feeling dyspneic, however she appears to be breathing comfortably on room air. She denied abdominal pain or vomiting but reports nausea and diarrhea. She reports chills but no fever. The rest of her history is unremarkable. As a result of her initial presentation, she is being admitted for further work up. - HOSPITAL COURSE Hospital Course: pt was admitted for TIA and right side weakness and slurred speech. Pt's all focal neurological symptoms were resolved in around 10 min. pt's brain MRI found pt had multifocal small recent infarction at left brain. PT/OT PT/OT evaluated and treated, and release pt, and recommended pt has no further need for PT/OT. Pt's EKG found SR. ECHO and US of carotid both were unremarkable. the detail hospital course is as the followin)stroke stable. pt was as her baseline. pt has no acute focal neurological deficits. PT/OT evaluated and treated, and release pt. MRI found pt had multifocal small recent infarction at left brain. pt's Lipid panel was found unremarkable. pt had Aspirin 81 mg and Plavix 75 mg daily at home. pt's aspirin dosage is increased to 325 mg daily, keep Plavis the same dosage, plus Protonic 20 mg daily to protect GI track. (2) Rash and nonspecific skin eruption resolved (3) Hx of coronary artery disease stable (4) Hypertension stable (5) COPD stable (6) Anxiety stable (7) Osteoporosis stable - ALLERGIES Allergies/Adverse Reactions: Allergies Allergy/AdvReac Type Severity Reaction Status Date / Time Sulfa (Sulfonamide Allergy Unknown Unknown Verified 09/30/18 20:51 Antibiotics) tramadol HCl * [From Ultram] Allergy Unknown Unknown Verified 09/30/18 20:51 - MEDICATIONS Home Medications: Ambulatory Orders Medication Instructions Recorded Confirmed Carvedilol [Coreg] 12.5 mg PO DAILY 12/30/13 10/01/18 Clopidogrel [Plavix] 75 mg PO DAILY 12/30/13 10/01/18 Losartan [Cozaar] 12.5 mg PO DAILY 12/30/13 10/01/18 Simvastatin [Zocor] 20 mg PO DAILY 12/30/13 10/01/18 Cholecalciferol (Vitamin D3) 5,000 unit PO DAILY 03/21/15 10/01/18 [Vitamin D3] Cyanocobalamin (Vitamin B-12) 1,000 mcg PO DAILY 03/21/15 10/01/18 [B-12] Nitroglycerin [Nitrostat] 0.4 mg SL PRN PRN 03/21/15 10/01/18 Aspirin 325 mg PO DAILY #10 tablet 10/01/18 Levalbuterol [Xopenex] 1 vial NEB QID PRN 10/01/18 10/01/18 Pantoprazole Sodium [Protonix] 20 mg PO DAILY #10 tablet. 10/01/18 Tiotropium [place] [Spiriva 1 inh PO BID 10/01/18 10/01/18 Respimat] - PHYSICAL EXAM AT DISCHARGE General Appearance: positive: No acute distress, Alert. negative: Lethargic Eyes Bilateral: positive: Normal inspection, PERRL, No lid inflammation, Conjunctivae nml ENT: positive: ENT inspection nml, Pharynx nml, No signs of dehydration. negative: Purulent nasal drainage, Pharyngeal erythema, Oral lesions Neck: positive: Nml inspection, Thyroid nml, No JVD, Trachea midline. negative: Thyromegaly, Lymphadenopathy (R), Lymphadenopathy (L), Stiff neck, Swelling/bruising, Tracheal deviation Respiratory: positive: Chest non-tender, No respiratory distress, Breath sounds nml. negative: Wheezes, Rales, Rhonchi Cardiovascular: positive: Regular rate & rhythm, No murmur, No gallop. negative: Irregularly irregular, Extrasystoles, Tachycardia, Bradycardia, JVD present, Systolic murmur, Diastolic murmur Peripheral Pulses: positive: 2+ Abdomen: positive: Non-tender, No organomegaly, Nml bowel sounds, No distention. negative: Tenderness, Guarding, Rebound Back: positive: Nml inspection. negative: CVA tenderness (R), CVA tenderness (L) Skin: positive: Color nml, No rash, Warm, Dry. negative: Cyanosis, Diaphoresis, Pallor Extremities: positive: Non-tender, Full ROM, Nml appearance. negative: Calf tenderness, Joint swelling, Fatou's sign/cords Neurologic/Psychiatric: positive: Oriented x3, Motor nml, Sensation nml, Mood/affect nml. negative: Weakness, Sensory loss, Facial droop, Slurred/abnml speech, Depressed mood/affect - LABS Result Diagrams: 10/01/18 05:48 10/01/18 05:48 - FOLLOW UP Follow Up: You was found to have multifocal small recent stroke in MRI. your focal neurological deficit symptoms were resolved in the hospital. your Aspirin dosage increase to 325 mg daily. you may followup your PCP in one week, followup neurologist as out-pt. Should your symptoms return or worsen, you may present ER or call 911 for help. - TIME SPENT Time Spent in Discharge (Minutes): 55
[2018-10-01 18:22] VITALS: BP 111/52
[2018-10-01] MEDS ORDERED: ATORVASTATIN 40 MG TABLET PO SCH (21:00)
[2018-10-02] MEDS ORDERED: MULTIVITAMIN W/MINERALS TABLET PO SCH (08:00)
== END 2018-10-01 18:20 | disposition home or self-care (01) ==
LOC: EDUNIT# → EDBD → ED 20:22 → MS2 21:58
PROVIDERS: ADMIT Internal Medicine; ATTEND Nurse Practitioner Gerontology
DX: I63.9 Cerebral infarction, unspecified (principal); R47.81 Slurred speech; G83.21 Monoplegia of upper limb affecting right dominant side; R21 Rash and other nonspecific skin eruption; I25.10 Atherosclerotic heart disease of native coronary artery without angina pectoris; I10 Essential (primary) hypertension; J44.9 Chronic obstructive pulmonary disease, unspecified; F17.210 Nicotine dependence, cigarettes, uncomplicated; F41.9 Anxiety disorder, unspecified; M81.0 Age-related osteoporosis without current pathological fracture; E78.00 Pure hypercholesterolemia, unspecified; R32 Unspecified urinary incontinence; I25.2 Old myocardial infarction; M19.90 Unspecified osteoarthritis, unspecified site; Z66 Do not resuscitate; Z79.82 Long term (current) use of aspirin; Z79.02 Long term (current) use of antithrombotics/antiplatelets; Z79.891 Long term (current) use of opiate analgesic
CPT/HCPCS: 36415; 70450; 70551; 71045; 71250; 80048; 80053; 80061; 81001; 83036; 83690; 85025; 87086; 93005; 93306; 93880; 94640; 96361; 96372; 96374; 97161; 99284; 99285; A9270; G0378; 81003; 83721

== ENCOUNTER 2020-02-09 18:10 | Outpatient (CLI) | payer MEDICARE, OTHER | END 2020-02-09 18:11 | disposition critical access hospital (66) | LOC: EMS 18:10 | PROVIDERS: ATTEND Surgery | DX: R06.02 Shortness of breath (principal); R05 Cough | CPT/HCPCS: A0425; A0429 ==

== ENCOUNTER 2020-02-09 18:28 | Inpatient (IN) | payer MEDICARE, OTHER ==
[2020-02-09] MEDS ORDERED: IPRATROPIUM/ALBUTEROL 3 ML NEB INH STA (18:45)
[2020-02-09] MEDS ORDERED: methylPREDNISolone SUCCINATE 125 MG/2 ML VIAL IVP STA (18:45)
--- NOTE | 2020-02-09 18:47 | ED Physician Documentation ---
PD HPI CHEST PAIN - Stated complaint Stated Complaint: SOA - Chief complaint Chief Complaint: Resp - History obtained from History obtained from: Patient - Additional information Additional information: This is an 84-year-old woman with history of COPD who presents with worsening cough that is productive of some sputum but also feeling like there is a lot of sputum stuck down in her chest as well as a runny nose for the last 2 weeks with generally worsening shortness of breath. She denies orthopnea or pedal edema. She continues to smoke but has been too sick over the last 3 days or so to quentin nue to smoke. She denies fevers or chills. She tried a home neb and inhaler without relief. No sick contacts, she has not left the house. Review of Systems Ten Systems: 10 systems reviewed and negative Constitutional: denies: Fever, Chills Nose: reports: Rhinorrhea / runny nose. 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 : Incontinence HEENT: None Psych: None Musculoskeletal: Osteoarthritis Derm: None - Past Surgical History Past Surgical History: Yes /TAIL END RIDER: Hysterectomy - Present Medications Home Medications: Ambulatory Orders Medication Instructions Recorded Confirmed Clopidogrel [Plavix] 75 mg PO DAILY 12/30/13 10/01/18 Losartan [Cozaar] 12.5 mg PO DAILY 12/30/13 10/01/18 Simvastatin [Zocor] 20 mg PO DAILY 12/30/13 10/01/18 carvediloL [Coreg] 12.5 mg PO DAILY 12/30/13 10/01/18 Cholecalciferol (Vitamin D3) 5,000 unit PO DAILY 03/21/15 10/01/18 [Vitamin D3] Cyanocobalamin (Vitamin B-12) 1,000 mcg PO DAILY 03/21/15 10/01/18 [B-12] Nitroglycerin [Nitrostat] 0.4 mg SL PRN PRN 03/21/15 10/01/18 Aspirin 325 mg PO DAILY #10 tablet 10/01/18 Levalbuterol [Xopenex] 1 vial NEB QID PRN 10/01/18 10/01/18 Pantoprazole Sodium [Protonix] 20 mg PO DAILY #10 tablet. 10/01/18 Tiotropium [place] [Spiriva 1 inh PO BID 10/01/18 10/01/18 Respimat] - Allergies Allergies/Adverse Reactions: Allergies Allergy/AdvReac Type Severity Reaction Status Date / Time Sulfa (Sulfonamide Allergy Unknown Unknown Verified 02/09/20 18:35 Antibiotics) tramadol HCl * [From Ultram] Allergy Unknown Unknown Verified 02/09/20 18:35 - Social History Does the pt smoke?: Yes Smoking Status: Current every day smoker Does the pt drink ETOH?: No Does the pt have substance abuse?: No - Immunizations Immunizations are current?: Yes - POLST Patient has POLST: No POLST Status: DNR PD ED PE NORMAL - Vitals Vital signs reviewed: Yes - General General: Alert and oriented X 3, No acute distress - HEENT HEENT: PERRL, EOMI - Neck Neck: Supple, no meningeal sign, No bony TTP - Cardiac Cardiac: RRR, No murmur - Respiratory Respiratory: No respiratory distress, Other (Decent air motion with some rhonchi at the bases and both inspiratory and expiratory wheezing and occasional cough.) - Abdomen Abdomen: Non tender - Back Back: No CVA TTP, No spinal TTP - Derm Derm: Normal color, Warm and dry - Extremities Extremities: No edema, No calf tenderness / cord - Neuro Neuro: Alert and oriented X 3, Normal speech Results - Vitals Vitals: Vital Signs - 24 hr 02/09/20 02/09/20 02/09/20 18:35 18:41 19:00 Temperature 36.5 C Heart Rate 90 80 82 Respiratory 16 24 22 Rate Blood Pressure 161/81 H 160/80 H O2 Saturation 94 95 02/09/20 02/09/20 02/09/20 20:05 20:40 20:46 Temperature Heart Rate 80 79 79 Respiratory 22 22 23 Rate Blood Pressure 108/67 101/46 L O2 Saturation 95 98 02/09/20 02/09/20 21:09 21:14 Temperature Heart Rate Respiratory Rate Blood Pressure O2 Saturation 92 88 L Oxygen O2 Source [With Activity] Room air O2 Source Room air - Labs Labs: Laboratory Tests 02/09/20 02/09/20 02/09/20 19:17 19:17 19:17 WBC 8.8 RBC 4.74 Hgb 14.7 Hct 45.9 MCV 96.8 MCH 31.0 MCHC 32.0 RDW 12.6 Plt Count 261 MPV 10.2 Neut # (Auto) 4.9 Lymph # (Auto) 2.2 [place] # (Auto) 1.0 Eos # (Auto) 0.7 Baso # (Auto) 0.1 Absolute Nucleated RBC 0.00 Nucleated RBC % 0.0 Sodium 142 Potassium 4.2 Chloride 100 L Carbon Dioxide 30 Anion Gap 12.0 BUN 9 Creatinine 0.8 Estimated GFR (MDRD) 69 L Glucose 99 Calcium 9.9 Total Bilirubin 0.6 AST 21 ALT 14 Alkaline Phosphatase 54 B-Natriuretic Peptide 165 H Total Protein 7.4 Albumin 4.3 Globulin 3.1 Albumin/Globulin Ratio 1.4 Nasal Adenovirus (PCR) Nasal B. parapertussis DNA (PCR) Nasal Coronavir 229E PCR Nasal Coronavir HKU1 PCR Nasal Coronavir NL63 PCR Nasal Coronavir OC43 PCR Nasal Enterovir/Rhinovir PCR Nasal Influenza B PCR Nasal Influenza A PCR Nasal Parainfluen 1 PCR Nasal Parainfluen 2 PCR Nasal Parainfluen 3 PCR Nasal Parainfluen 4 PCR Nasal RSV (PCR) Nasal B.pertussis DNA PCR Nasal C.pneumoniae (PCR) Armando Human Metapneumo PCR Nasal M.pneumoniae (PCR) Nasal SARS-CoV-2 (PCR) 02/09/20 19:18 WBC RBC Hgb Hct MCV MCH MCHC RDW Plt Count MPV Neut # (Auto) Lymph # (Auto) [place] # (Auto) Eos # (Auto) Baso # (Auto) Absolute Nucleated RBC Nucleated RBC % Sodium Potassium Chloride Carbon Dioxide Anion Gap BUN Creatinine Estimated GFR (MDRD) Glucose Calcium Total Bilirubin AST ALT Alkaline Phosphatase B-Natriuretic Peptide Total Protein Albumin Globulin Albumin/Globulin Ratio Nasal Adenovirus (PCR) NOT DETECTED Nasal B. parapertussis DNA (PCR) NOT DETECTED Nasal Coronavir 229E PCR NOT DETECTED Nasal Coronavir HKU1 PCR NOT DETECTED Nasal Coronavir NL63 PCR NOT DETECTED Nasal Coronavir OC43 PCR NOT DETECTED Nasal Enterovir/Rhinovir PCR NOT DETECTED Nasal Influenza B PCR NOT DETECTED Nasal Influenza A PCR NOT DETECTED Nasal Parainfluen 1 PCR NOT DETECTED Nasal Parainfluen 2 PCR NOT DETECTED Nasal Parainfluen 3 PCR NOT DETECTED Nasal Parainfluen 4 PCR NOT DETECTED Nasal RSV (PCR) NOT DETECTED Nasal B.pertussis DNA PCR NOT DETECTED Nasal C.pneumoniae (PCR) NOT DETECTED Armando Human Metapneumo PCR NOT DETECTED Nasal M.pneumoniae (PCR) NOT DETECTED Nasal SARS-CoV-2 (PCR) NOT DETECTED PD MEDICAL DECISION MAKING - ED course ED course: [employer] respiratory panel ordered to rapidly test specifically for COVID-19 in this patient who is expected to be hospitalized. -year-old woman with history of COPD presents with apparent exacerbation of same. No evidence of DVT/PE or heart failure. Chest x-ray relatively clear with the exception of hyperexpanded lungs interpreted contemporaneously by me. After 3 nebs she still had wheezes and required supplemental oxygen, she does not wear supplemental oxygen at home. Dr. Trevizo will obs. We spoke at 9:26 PM. Departure - Departure Disposition: ED Place in Observation Clinical Impression: COPD exacerbation, Hypoxia Condition: Serious
[2020-02-09 19:28] LABS: BASOPHILS # (AUTO) 0.1 10^3/uL (0.0-0.1); BASOPHILS % (AUTO) 0.6 %; EOSINOPHILS # (AUTO) 0.7 10^3/uL (0.0-0.7); EOSINOPHILS % (AUTO) 7.8 %; HGB - HEMOGLOBIN 14.7 g/dL (12.0-16.0); LYMPHOCYTES # (AUTO) 2.2 10^3/uL (1.5-3.5); LYMPHOCYTES % (AUTO) 24.7 %; MEAN CORPUSCULAR VOLUME 96.8 fL (81.0-99.0); MEAN PLATELET VOLUME 10.2 fL (7.9-10.8); MONOCYTES % (AUTO) 10.9 %; NEUTROPHILS # (AUTO) 4.9 10^3/uL (1.5-6.6); NEUTROPHILS % (AUTO) 55.7 %; PLT - PLATELET COUNT 261 10^3/uL (130-450); RED BLOOD COUNT 4.74 10^6/uL (4.20-5.40); RED CELL DISTRIBUTION WIDTH 12.6 % (12.0-15.0); WHITE BLOOD COUNT 8.8 x10^3/uL (4.8-10.8)
--- NOTE | 2020-02-09 19:29 | XRAY Report ---
PROCEDURE: Chest 1 View X-Ray INDICATIONS: dyspnea copd TECHNIQUE: One view of the chest was acquired. COMPARISON: Chest CT without contrast, 10/01/2018. Chest 1 view, 10/01/2018. FINDINGS: Surgical changes and devices: None. Lungs and pleura: Hyperinflation consistent with COPD. No pleural effusions or pneumothorax. Lungs are clear. Mediastinum: Mediastinal contours appear normal. Heart size is normal. Bones and chest wall: No suspicious bony lesions. Overlying soft tissues appear unremarkable. IMPRESSION: 1. No acute cardiopulmonary disease. 2. COPD. Reviewed by: Ilda Harvey MD on 02/09/2020 7:28 PM PST Approved by: Ilda Harvey MD on 02/09/2020 7:28 PM PST Station ID: [id number]
[2020-02-09 19:39] LABS: ALBUMIN 4.3 g/dL (3.2-5.5); ALBUMIN/GLOBULIN RATIO 1.4 (1.0-2.2); BILIRUBIN,TOTAL 0.6 mg/dL (0.2-1.0); CALCIUM 9.9 mg/dL (8.5-10.3); CREATININE 0.8 mg/dL (0.4-1.0); TOTAL PROTEIN 7.4 g/dL (6.7-8.2)
[2020-02-09] MEDS ORDERED: LEVALBUTEROL 1.25 MG/3 ML NEB INH STA (20:08)
[2020-02-09 20:30] LABS: C. PNEUMONIAE- RESP PCR PANEL NOT DETECTED
[2020-02-09] MEDS ORDERED: LEVALBUTEROL 1.25 MG/3 ML NEB INH ONE (20:47)
[2020-02-09] MEDS ORDERED: ACETAMINOPHEN 325 MG TABLET PO PRN (21:26)
--- NOTE | 2020-02-09 21:34 | HISTORY & PHYSICAL EXAMINATION ---
Chief Complaint - Chief Complaint Chief Complaint: cough, dyspnea History of Present Illness - Admitted From Admitted From:: [facility] ED - History Obtained From Records Reviewed: yes History obtained from: patient - History of Present Illness HPI Comment/Other: Patient is an 84-year-old female with medical history significant for hypertension, hyperlipidemia, coronary artery disease, COPD, osteoarthritis, CVA who presented to the ED with complaint of dyspnea. She has been feeling congested for a couple of weeks. She was scheduled to see her primary care physician tomorrow but was coughing significantly today and could not breath so she presented to the ED. Her oxygen saturation was 88% on room air. She normally does not use oxygen at home. She was given 3 breathing treatments and IV Solu-Medrol. Despite this she still appeared to be dyspneic and was wheezing significantly. As a result she was presented for admission for further treatment. At bedside she was resting comfortably. She reported significant improvement in her breathing compared to when she initially presented in the ED. She denied chest pain, abdominal pain, fever. She reports nausea but no vomiting and reported chills as well. 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 She had 8 children. A son from lung cancer at age 59 Social History Notes: She lives with her in [place] and has 2 dogs. She smokes about 1ppd for about 60+ years. She denies alcohol or illicit drugs - POLST Patient has POLST: No POLST Status: DNR Meds/Allgy - Home Medications Home Medications: Ambulatory Orders Medication Instructions Recorded Confirmed Clopidogrel [Plavix] 75 mg PO DAILY 12/30/13 10/01/18 Losartan [Cozaar] 12.5 mg PO DAILY 12/30/13 10/01/18 Simvastatin [Zocor] 20 mg PO DAILY 12/30/13 10/01/18 carvediloL [Coreg] 12.5 mg PO DAILY 12/30/13 10/01/18 Cholecalciferol (Vitamin D3) 5,000 unit PO DAILY 03/21/15 10/01/18 [Vitamin D3] Cyanocobalamin (Vitamin B-12) 1,000 mcg PO DAILY 03/21/15 10/01/18 [B-12] Nitroglycerin [Nitrostat] 0.4 mg SL PRN PRN 03/21/15 10/01/18 Aspirin 325 mg PO DAILY #10 tablet 10/01/18 Levalbuterol [Xopenex] 1 vial NEB QID PRN 10/01/18 10/01/18 Pantoprazole Sodium [Protonix] 20 mg PO DAILY #10 tablet. 10/01/18 Tiotropium [place] [Spiriva 1 inh PO BID 10/01/18 10/01/18 Respimat] - Allergies Allergies/Adverse Reactions: Allergies Allergy/AdvReac Type Severity Reaction Status Date / Time Sulfa (Sulfonamide Allergy Unknown Unknown Verified 02/09/20 18:35 Antibiotics) tramadol HCl * [From Ultram] Allergy Unknown Unknown Verified 02/09/20 18:35 Review of Systems - Constitutional Constitutional: reports: Chills. denies: Fatigue, Fever - Eyes Eyes: denies: Pain - Ears, Nose & Throat Ears, Nose & Throat: denies: Sore throat - Cardiovascular Cariovascular: denies: Irregular heart rate, Palpitations, Chest pain, Edema, Lightheadedness, Syncope - Respiratory Respiratory: reports: Cough, Wheezing, SOB at rest - Gastrointestinal Gastrointestinal: denies: Abdominal pain, Abdominal distention, Constipation, Diarrhea, Nausea, Vomiting - Genitourinary Genitourinary: denies: Dysuria, Frequency, Urgency, Hematuria - Musculoskeletal Musculoskeletal: denies: Muscle pain, Back pain, Muscle aches, Stiffness - Integumentary Integumentary: denies: Rash, Pruritis, Lesions, Dryness - Neurological Neurological: denies: General weakness, Focal weakness, Headache, Dizziness - Psychiatric Psychiatric: denies: Depression, Anxiety, Suicidal - Endocrine Endocrine: denies: Polyuria, Polydypsia - Hematologic/Lymphatic Hematologic/Lymphatic: denies: Anemia, Bruising, Petechiae Prior Level of Functionality: Patient is normally independent of activities of daily living Exam - Vital Signs Vital Signs: Vital Signs x48h Temp Pulse Resp BP Pulse Ox 02/09/20 21:14 88 L 02/09/20 21:09 92 02/09/20 20:46 79 23 101/46 L 98 02/09/20 20:40 79 22 02/09/20 20:05 80 22 108/67 95 02/09/20 19:00 82 22 02/09/20 18:41 80 24 160/80 H 95 02/09/20 18:35 36.5 C 90 16 161/81 H 94 - Physical Exam General Appearance: positive: Alert, Mild distress Eyes Bilateral: positive: PERRL, EOMI ENT: positive: No signs of dehydration Neck: positive: No JVD, Trachea midline Respiratory: positive: Wheezes Cardiovascular: positive: Regular rate & rhythm, No murmur Abdomen: positive: Non-tender, No organomegaly, Nml bowel sounds, No distention. negative: Guarding, Rebound Back: positive: Nml inspection Skin: positive: Color nml, No rash, Warm, Dry Extremities: positive: Non-tender, No pedal edema Neurologic/Psychiatric: positive: Oriented x3, CN's nml (2-12), Mood/affect nml Conclusion/Plan - Problem List (1) COPD exacerbation Conclusion/Plan: Patient was given Solu-Medrol in the ED. We will continue Solu-Medrol 40 mg IV 3 times daily. We will maintain patient on supplemental oxygen via nasal cannula. Budesonide and formoterol ordered. DuoNeb ordered every 4 hours as needed. Patient's COVID-19 test was negative. (2) Hx of coronary artery disease Conclusion/Plan: We will continue patient's aspirin, Plavix, simvastatin, losartan and Coreg. (3) Hypertension Conclusion/Plan: On Coreg and losartan. (4) Osteoporosis Conclusion/Plan: On vitamin D, calcitonin and Forteo (5) Anxiety Conclusion/Plan: On alprazolam. - Lab Results Fish Bones: 02/09/20 19:17 02/09/20 19:17 Core Measures - Anticipated LOS I expect patient to be DC'd or transferred within 96 hours.: Yes - DVT/VTE - Prophylaxis VTE/DVT Device ordered at admit?: Yes VTE/DVT Prophylaxis med ordered at admit?: Yes
[2020-02-09] MEDS: methylPREDNISolone SUCCINATE 40 MG/ML VIAL IVP SCH (22:58)
[2020-02-09] MEDS: SODIUM CHLORIDE FLUSH 0.9% 10 ML SYRINGE IVP PRN (23:00)
[2020-02-09] MEDS ORDERED: LORazepam 0.5 MG TABLET PO PRN (23:41)
[2020-02-09] MEDS: SODIUM CHLORIDE FLUSH 0.9% 10 ML SYRINGE IVP SCH (23:53)
[2020-02-10] MEDS: IPRATROPIUM/ALBUTEROL 3 ML NEB INH PRN ×3 (01:13→18:12)
[2020-02-10 05:24] LABS: BASOPHILS % (AUTO) 0.3 %; HGB - HEMOGLOBIN 13.1 g/dL (12.0-16.0); LYMPHOCYTES # (AUTO) 0.7 10^3/uL (1.5-3.5); LYMPHOCYTES % (AUTO) 10.2 %; MEAN CORPUSCULAR HEMOGLOBIN 30.6 pg (27.0-31.0); MEAN CORPUSCULAR HGB CONC 31.3 g/dL (32.0-36.0); MEAN CORPUSCULAR VOLUME 97.7 fL (81.0-99.0); MEAN PLATELET VOLUME 10.5 fL (7.9-10.8); MONOCYTES # (AUTO) 0.1 10^3/uL (0.0-1.0); MONOCYTES % (AUTO) 0.8 %; NEUTROPHILS # (AUTO) 5.7 10^3/uL (1.5-6.6); NEUTROPHILS % (AUTO) 88.4 %; PLT - PLATELET COUNT 219 10^3/uL (130-450); RED BLOOD COUNT 4.28 10^6/uL (4.20-5.40); RED CELL DISTRIBUTION WIDTH 12.7 % (12.0-15.0); WHITE BLOOD COUNT 6.5 x10^3/uL (4.8-10.8)
[2020-02-10 05:37] LABS: CALCIUM 9.5 mg/dL (8.5-10.3); CREATININE 0.6 mg/dL (0.4-1.0)
[2020-02-10] MEDS: PANTOPRAZOLE 40 MG TABLET PO SCH (06:01)
[2020-02-10] MEDS: methylPREDNISolone SUCCINATE 40 MG/ML VIAL IVP SCH ×3 (06:01→21:56)
[2020-02-10] MEDS: SODIUM CHLORIDE FLUSH 0.9% 10 ML SYRINGE IVP PRN ×2 (06:01→14:21)
[2020-02-10] MEDS ORDERED: IPRATROPIUM/ALBUTEROL 3 ML NEB INH SCH (07:00)
[2020-02-10] MEDS: FORMOTEROL FUMARATE NEB 20 MCG/2 ML INH SCH ×2 (07:16→18:08)
[2020-02-10] MEDS: BUDESONIDE 0.5 MG/2 ML NEB INH SCH ×2 (07:16→18:13)
[2020-02-10] MEDS: ENOXAPARIN 40 MG/0.4 ML SYRINGE SUBQ SCH (09:17)
[2020-02-10] MEDS: SODIUM CHLORIDE FLUSH 0.9% 10 ML SYRINGE IVP SCH ×2 (09:17→15:42)
--- NOTE | 2020-02-10 19:20 | PROVIDER PROGRESS NOTE ---
Assessment/Plan - Problem List (1) COPD exacerbation Assessment/Plan: There is significant improvement in patient's respiratory status. However patient was kept for 1 more day in the hospital because her oxygen saturation briefly dropped below 90% this afternoon. No significant wheeze appreciated on auscultation. Patient's oxygen requirement decreased to 1 L oxygen via nasal cannula. We will continue Solu-Medrol 40 mg IV 3 times daily Continue budesonide and formoterol. Continue DuoNeb every 4 hours as needed. Anticipate discharge tomorrow (2) Hx of coronary artery disease Assessment/Plan: Continue patient's aspirin, Plavix, simvastatin, losartan and Coreg. (3) Hypertension Assessment/Plan: Continue Coreg and losartan. (4) Osteoporosis Assessment/Plan: On vitamin D, calcitonin and Forteo (5) Anxiety Assessment/Plan: Alprazolam as needed - Current Meds Current Meds: Current Medications Generic Name Dose Route Start Last Admin Trade Name Freq PRN Reason Stop Dose Admin Albuterol/Ipratropium 3 ml 02/09/20 21:30 02/10/20 18:12 Ipratropium/Albuterol 3 Ml Neb INH 3 ml Q4HR PRN Administration Wheezing Budesonide 0.5 mg 02/10/20 07:00 02/10/20 18:13 Budesonide 0.5 Mg/2 Ml Neb INH 0.5 mg RTBID MALKA Administration Enoxaparin Sodium 40 mg 02/10/20 09:00 02/10/20 09:17 Enoxaparin 40 Mg/0.4 Ml Syringe SUBQ 40 mg DAILY MALKA Administration Formoterol Fumarate 20 mcg 02/10/20 07:00 02/10/20 18:08 Formoterol Fumarate Neb 20 Mcg/2 Ml INH 20 mcg RTBID MALKA Administration Methylprednisolone 40 mg 02/09/20 22:00 02/10/20 14:21 Methylprednisolone Succinate 40 Mg/Ml Vial IVP 40 mg TID MALKA Administration Pantoprazole Sodium 40 mg 02/10/20 07:00 02/10/20 06:01 Pantoprazole 40 Mg Tablet PO 40 mg QDAC MALKA Administration Sodium Chloride 10 ml 02/09/20 21:26 02/10/20 14:21 Sodium Chloride Flush 0.9% 10 Ml Syringe IVP 10 ml PRN PRN Administration NEEDED PER PROVIDER ORDERS Sodium Chloride 10 ml 02/10/20 01:00 02/10/20 15:42 Sodium Chloride Flush 0.9% 10 Ml Syringe IVP 10 ml 0100,0900,1700 MALKA Administration - Lab Result Fish Bone Diagrams: 02/10/20 05:12 02/10/20 05:12 - Additional Planning My Orders: My Active Orders 02/09/20 21:26 Telemetry- [RC] Q4HR Acetaminophen [Tylenol] 650 mg PO Q4HR PRN Sodium Chloride Flush 0.9% [Normal Saline Flush 0.9%] 10 ml IVP PRN PRN 02/09/20 21:27 Activity Orders [RC] Q2HR IO [RC] IOSHIFT Initiate Bowel Care Protocol [RC] .protocol Initiate Line Care Protocol [RC] QSHIFT Initiate Personal Care Protoco [RC] .protocol Vital Signs [RC] Q4H Condition of Patient [OTHERS] Routine DVT Prophylaxis [OTHERS] Routine 02/09/20 21:29 SCDs [RC] QSHIFT 02/09/20 21:30 Ipratropium/Albuterol [Duoneb] 3 ml INH Q4HR PRN 02/09/20 22:00 methylPREDNISolone SUCCINATE [SOLU-Medrol (40MG VIAL)] 40 mg IVP TID 02/09/20 22:39 RT [Oxygen Therapy] [RC] .PRN 02/09/20 23:42 Nebulizer/MDI Tx. [RC] .BID 02/10/20 00:12 Code Status [OTHERS] Routine 02/10/20 01:00 Sodium Chloride Flush 0.9% [Normal Saline Flush 0.9%] 10 ml IVP 0100,0900,1700 02/10/20 07:00 Budesonide [Pulmicort] 0.5 mg INH RTBID Formoterol Fumarate [Perforomist] 20 mcg INH RTBID Pantoprazole [Protonix] 40 mg PO QDAC 02/10/20 09:00 Enoxaparin [Lovenox] 40 mg SUBQ DAILY 02/11/20 05:00 BMP - BASIC METABOLIC PANEL [CHEM] DAILYLAB CBC - COMP BLD CT W/AUTO DIFF [HEME] DAILYLAB 02/12/20 05:00 BMP - BASIC METABOLIC PANEL [CHEM] DAILYLAB CBC - COMP BLD CT W/AUTO DIFF [HEME] DAILYLAB 02/13/20 05:00 BMP - BASIC METABOLIC PANEL [CHEM] DAILYLAB CBC - COMP BLD CT W/AUTO DIFF [HEME] DAILYLAB 02/14/20 05:00 BMP - BASIC METABOLIC PANEL [CHEM] DAILYLAB CBC - COMP BLD CT W/AUTO DIFF [HEME] DAILYLAB Subjective - Subjective Patient Reports: Other (Patient is resting comfortably in bed at time of exam. She reports Significant improvement in her breathing today. She denies chest pain, abdominal pain, nausea, vomiting, fever or chills. She reports sore throat.Oxygen requirement decrease to 1 L today.) Objective Vital Signs: Vital Signs - 24 hr 02/09/20 02/09/20 02/09/20 20:05 20:40 20:46 Temperature Heart Rate 80 79 79 Heart Rate [ Brachial] Respiratory 22 22 23 Rate Blood Pressure 108/67 101/46 L Blood Pressure [Left Brachial artery] O2 Saturation 95 98 02/09/20 02/09/20 02/09/20 21:09 21:14 21:51 Temperature 36.5 C Heart Rate 82 Heart Rate [ Brachial] Respiratory 21 Rate Blood Pressure 113/65 Blood Pressure [Left Brachial artery] O2 Saturation 92 88 L 91 L 02/09/20 02/09/20 02/09/20 22:47 22:50 23:53 Temperature 36.7 C 36.7 C 37 C Heart Rate 97 Heart Rate [ 97 93 Brachial] Respiratory 19 18 18 Rate Blood Pressure Blood Pressure 96/68 117/59 L [Left Brachial artery] O2 Saturation 93 93 96 02/10/20 02/10/20 02/10/20 01:13 05:54 07:18 Temperature 37 C Heart Rate 107 H 96 Heart Rate [ 95 Brachial] Respiratory 18 18 18 Rate Blood Pressure Blood Pressure 103/52 L [Left Brachial artery] O2 Saturation 98 02/10/20 02/10/20 02/10/20 07:46 10:00 10:54 Temperature 36.6 C Heart Rate Heart Rate [ 88 Brachial] Respiratory 20 Rate Blood Pressure Blood Pressure 104/57 L [Left Brachial artery] O2 Saturation 92 92 92 02/10/20 02/10/20 02/10/20 11:39 11:59 12:51 Temperature 37.1 C Heart Rate Heart Rate [ 93 Brachial] Respiratory 20 Rate Blood Pressure Blood Pressure 104/55 L [Left Brachial artery] O2 Saturation 92 92 91 L 02/10/20 02/10/20 02/10/20 13:08 13:10 16:16 Temperature 36.6 C Heart Rate Heart Rate [ 64 Brachial] Respiratory 18 Rate Blood Pressure Blood Pressure 102/58 L [Left Brachial artery] O2 Saturation 89 L 92 92 02/10/20 18:18 Temperature Heart Rate 78 Heart Rate [ Brachial] Respiratory 20 Rate Blood Pressure Blood Pressure [Left Brachial artery] O2 Saturation Oxygen O2 Source [With Activity] Room air O2 Source Nasal cannula I&O (Last 24 Hrs): Intake and Output Totals x24h 02/08/20 02/09/20 02/10/20 23:59 23:59 23:59 Intake Total 240 1200 Output Total 250 600 Balance -10 600 General: Alert, Oriented x3, Cooperative, No acute distress HEENT: PERRLA, EOMI Neck: No JVD Neuro: Alert, Non Focal, Other Cardiovascular: Regular rate Respiratory: Chest non-tender, No respiratory distress, Breath sounds nml, Other (No wheezing, rales or rhonchi) Abdomen: Normal bowel sounds, Soft Extremities: No clubbing, No edema - Results Results: Laboratory Results WBC 6.5 x10^3/uL (4.8-10.8) 02/10/20 05:12 RBC 4.28 10^6/uL (4.20-5.40) 02/10/20 05:12 Hgb 13.1 g/dL (12.0-16.0) 02/10/20 05:12 Hct 41.8 % (37.0-47.0) 02/10/20 05:12 MCV 97.7 fL (81.0-99.0) 02/10/20 05:12 MCH 30.6 pg (27.0-31.0) 02/10/20 05:12 MCHC 31.3 g/dL (32.0-36.0) L 02/10/20 05:12 RDW 12.7 % (12.0-15.0) 02/10/20 05:12 Plt Count 219 10^3/uL (130-450) 02/10/20 05:12 MPV 10.5 fL (7.9-10.8) 02/10/20 05:12 Neut # (Auto) 5.7 10^3/uL (1.5-6.6) 02/10/20 05:12 Lymph # (Auto) 0.7 10^3/uL (1.5-3.5) L 02/10/20 05:12 [place] # (Auto) 0.1 10^3/uL (0.0-1.0) 02/10/20 05:12 Eos # (Auto) 0.0 10^3/uL (0.0-0.7) 02/10/20 05:12 Baso # (Auto) 0.0 10^3/uL (0.0-0.1) 02/10/20 05:12 Absolute Nucleated RBC 0.00 x10^3/uL 02/10/20 05:12 Nucleated RBC % 0.0 /100WBC 02/10/20 05:12 Sodium 141 mmol/L (135-145) 02/10/20 05:12 Potassium 4.0 mmol/L (3.5-5.0) 02/10/20 05:12 Chloride 105 mmol/L (101-111) 02/10/20 05:12 Carbon Dioxide 26 mmol/L (21-32) 02/10/20 05:12 Anion Gap 10.0 (6-13) 02/10/20 05:12 BUN 12 mg/dL (6-20) 02/10/20 05:12 Creatinine 0.6 mg/dL (0.4-1.0) 02/10/20 05:12 Estimated GFR (MDRD) 96 (>89) 02/10/20 05:12 Glucose 153 mg/dL (70-100) H 02/10/20 05:12 Calcium 9.5 mg/dL (8.5-10.3) 02/10/20 05:12 Total Bilirubin 0.6 mg/dL (0.2-1.0) 02/09/20 19:17 AST 21 IU/L (10-42) 02/09/20 19:17 ALT 14 IU/L (10-60) 02/09/20 19:17 Alkaline Phosphatase 54 IU/L (42-121) 02/09/20 19:17 B-Natriuretic Peptide 165 pg/mL (5-100) H 02/09/20 19:17 Total Protein 7.4 g/dL (6.7-8.2) 02/09/20 19:17 Albumin 4.3 g/dL (3.2-5.5) 02/09/20 19:17 Globulin 3.1 g/dL (2.1-4.2) 02/09/20 19:17 Albumin/Globulin Ratio 1.4 (1.0-2.2) 02/09/20 19:17 Nasal Adenovirus (PCR) NOT DETECTED 02/09/20 19:18 Nasal B. parapertussis DNA (PCR) NOT DETECTED 02/09/20 19:18 Nasal Coronavir 229E PCR NOT DETECTED 02/09/20 19:18 Nasal Coronavir HKU1 PCR NOT DETECTED 02/09/20 19:18 Nasal Coronavir NL63 PCR NOT DETECTED 02/09/20 19:18 Nasal Coronavir OC43 PCR NOT DETECTED 02/09/20 19:18 Nasal Enterovir/Rhinovir PCR NOT DETECTED 02/09/20 19:18 Nasal Influenza B PCR NOT DETECTED 02/09/20 19:18 Nasal Influenza A PCR NOT DETECTED 02/09/20 19:18 Nasal Parainfluen 1 PCR NOT DETECTED 02/09/20 19:18 Nasal Parainfluen 2 PCR NOT DETECTED 02/09/20 19:18 Nasal Parainfluen 3 PCR NOT DETECTED 02/09/20 19:18 Nasal Parainfluen 4 PCR NOT DETECTED 02/09/20 19:18 Nasal RSV (PCR) NOT DETECTED 02/09/20 19:18 Nasal B.pertussis DNA PCR NOT DETECTED 02/09/20 19:18 Nasal C.pneumoniae (PCR) NOT DETECTED 02/09/20 19:18 [place] Human Metapneumo PCR NOT DETECTED 02/09/20 19:18 Nasal M.pneumoniae (PCR) NOT DETECTED 02/09/20 19:18 Nasal SARS-CoV-2 (PCR) NOT DETECTED 02/09/20 19:18 ABX Reporting Has patient been on IV antibiotics over the past 48 hours?: No
[2020-02-10] MEDS ORDERED: BENZOCAINE/MENTHOL LOZENGE MM PRN (21:25)
[2020-02-10] MEDS ORDERED: ATORVASTATIN 10 MG TABLET PO SCH (22:00)
[2020-02-10] MEDS ORDERED: NON FORMULARY MED (Simvastatin [Zocor] 20 MG Tablet) PO SCH (22:15)
[2020-02-11 05:49] LABS: BASOPHILS % (AUTO) 0.2 %; EOSINOPHILS % (AUTO) 0.3 %; HGB - HEMOGLOBIN 11.5 g/dL (12.0-16.0); LYMPHOCYTES % (AUTO) 4.9 %; MEAN CORPUSCULAR HEMOGLOBIN 30.3 pg (27.0-31.0); MEAN CORPUSCULAR HGB CONC 31.4 g/dL (32.0-36.0); MEAN CORPUSCULAR VOLUME 96.6 fL (81.0-99.0); MEAN PLATELET VOLUME 10.7 fL (7.9-10.8); MONOCYTES % (AUTO) 3.8 %; NEUTROPHILS % (AUTO) 89.9 %; PLT - PLATELET COUNT 219 10^3/uL (130-450); RED BLOOD COUNT 3.79 10^6/uL (4.20-5.40); RED CELL DISTRIBUTION WIDTH 12.8 % (12.0-15.0); WHITE BLOOD COUNT 21.1 x10^3/uL (4.8-10.8)
[2020-02-11 05:52] LABS: ABNORMAL LYMPHS % (MANUAL) 0 %
[2020-02-11 05:59] LABS: CALCIUM 9.2 mg/dL (8.5-10.3); CREATININE 0.6 mg/dL (0.4-1.0)
[2020-02-11 06:14] LABS: BAND NEUTROPHILS % (MANUAL) 2 %; DIFFERENTIAL COMMENT MANUAL DIFFERENTIAL; LYMPHOCYTES # (MANUAL) 1.1 10^3/uL (1.5-3.5); LYMPHOCYTES % (MANUAL) 5 %; MONOCYTES # (MANUAL) 0.8 10^3/uL (0.0-1.0); PLATELET ESTIMATE, MANUAL NORMAL (130-450,000) (NORMAL); PLATELET MORPHOLOGY NORMAL APPEARANCE (NORMAL); RBC MORPHOLOGY (MULTIPLE) NORMAL APPEARANCE (NORMAL)
[2020-02-11] MEDS: PANTOPRAZOLE 40 MG TABLET PO SCH (06:45)
[2020-02-11] MEDS: methylPREDNISolone SUCCINATE 40 MG/ML VIAL IVP SCH ×2 (06:45→14:10)
[2020-02-11] MEDS: SODIUM CHLORIDE FLUSH 0.9% 10 ML SYRINGE IVP SCH ×2 (06:45→08:14)
[2020-02-11] MEDS: FORMOTEROL FUMARATE NEB 20 MCG/2 ML INH SCH (07:45)
[2020-02-11] MEDS: BUDESONIDE 0.5 MG/2 ML NEB INH SCH (07:45)
[2020-02-11] MEDS: IPRATROPIUM/ALBUTEROL 3 ML NEB INH PRN (07:45)
--- NOTE | 2020-02-11 07:46 | PHARMACY PROGRESS NOTE ---
- Best Possible Medication History Admit Date and Time: 02/10/20 1232 Processed by: Pharmacy Medication History completed: Yes Patient Interview: Completed Secondary Source(s): Physician records, Pharmacy records, Insurance records As the person ultimately responsible for medication therapy, providers are able to order a medication from an existing home medication list in [facility] via the "Reconcile Routine" prior to Confirmation of that medication by network and threat support specialist. Such practice is discouraged except when the physician, in their clinical judgment, deems that a medical need exists for a medication without regard to previous use.
[2020-02-11] MEDS: ENOXAPARIN 40 MG/0.4 ML SYRINGE SUBQ SCH (08:15)
[2020-02-11] MEDS ORDERED: ALBUTEROL NEB 2.5 MG/3 ML INH PRN (08:41)
[2020-02-11] MEDS ORDERED: LOSARTAN 50 MG TABLET PO SCH (09:00)
[2020-02-11] MEDS ORDERED: LOSARTAN 25 MG PO SCH (09:00)
[2020-02-11] MEDS ORDERED: ASPIRIN EC 81 MG TABLET PO SCH (09:00)
[2020-02-11] MEDS: IPRATROPIUM/ALBUTEROL 3 ML NEB INH SCH ×2 (13:10→15:40)
[2020-02-11] MEDS: SODIUM CHLORIDE FLUSH 0.9% 10 ML SYRINGE IVP PRN (14:11)
--- NOTE | 2020-02-11 15:31 | Discharge Plan ---
Discharge Plan Problem Reviewed?: Yes Disposition: Home, Self Care Condition: Stable Prescriptions: predniSONE [Deltasone] 20 mg PO [id number] #21 tab Diet: Regular Activity Restrictions: Activity as Tolerated Shower Restrictions: No (fall precaution) Instruction Topics: Prednisone tablets, COPD, Oxygen Home Use Health Concerns: COPD exacerbation Plan of Treatment: After treated in hospital, your COPD symptoms are significantly improved, and you feel much better as well. you had O2 Desaturation study, you need home oxygen. Please follow up with RT instruction safety use oxygen in the home. You are prescribed short term usage of prednisone for your COPD, You may resume your other home medications as well Care Goals: stabilization and improvement of your medical conditions Assessment: discussed the care plan with you, you understood Additional Instructions or Follow Up instructions: You may followup with your PCP in one to two weeks, followup with fixture builder as out-pt and may have pulmonary rehab in [facility]. should your symptoms return or worsen, you may present ER or call 911 for help. Follow-Up Care: [facility] - Pul[facility] No Smoking: If you smoke, Please STOP! Call for help. Follow-up with: Sal Gage MD [Primary Care Provider] -
--- NOTE | 2020-02-11 15:54 | ADVANCE CARE PLANNING NOTE ---
Advance Care Planning - Planning Encounter Date: 02/11/20 Time: 15:54 Purpose: advanced care plan Parties in Attendance: pt and me Decisional Capacity of the Patient: Patient is alert and orientated plus 4, She can make her own medical decision by herself - Encounter Subjective/Patient's Story: This is a 84 years old female with long history of cigarette smoking. Patient r eported she stopped cigarette smoking only a few days before this time of admission. Patient reported she is living with her in [facility]. Patient report because of this COVID-19 pandemic, she and Her stay in the home all the time. Because of this condition, she report she smoked a lot, This is a possible reason why she had to go to the hospital For medical intervention. She feels very shortness breathing at home. In the hospital, patient was found to have COPD exacerbation. After she was admitted in the hospital she was treated for COPD exacerbation with intravenous steroid and DuoNeb breathing treatment. This time after treatment her shortness breathing and respiration distress was resolved and controlled. After RT assessment patient, patient walk with RT in the hallway, she need oxygen to support her O2 sats. Patient was prescribed short-term of steroid, prescribed home oxygen. Patient reported she had this COPD exacerbation in the before, she was pr escribed oxygen at home, and she reported she had lots of oxygen tank in the home. Patient was strongly advised to totally quit cigarette smoking, patient agreed and she states she will quit. Patient reports she has had no falls and no concerns about falls. Reports she has guardrails in her home. Does not have grab bars in bathroom, patient says she will discuss it with the "handymen" in her family about installing them. Patient reports she does not use or need any medical equipment. Objective/Medical Story: pt has medical history significant for hypertension, hyperlipidemia, coronary artery disease, COPD, osteoarthritis, CVA. Patient also report she has had cigarette smoking "a lot" recently Because of this covid 19 pandemic and she stay in the home. She felt very shortness of breath before this time admission in the home. After treated in the hospital, her acute respiratory distress was resolved but patient need home oxygen support, the same as she had before. Goals of Care: Stabilization and improvement of her medical conditions Plan: Continue DNR CODE STATUS, she states she will quit Cigarette smoking, Plan to have pulmonary rehab for patient Which will be referred by her PCP Code Status: Do Not Attempt Resuscitation Time spent on advance care plannin
--- NOTE | 2020-02-11 15:55 | DISCHARGE SUMMARY ---
Discharge Summary Admit Date: 02/09/20 Discharge Date: 02/11/20 Discharging Provider: Calos Brunner Primary Care Provider: Dr. Sal Gage Condition at Discharge: Stable Discharge Disposition: Home, Self Care Discharge Facility Name: home - DIAGNOSES Discharge Diagnoses with Status of Each Condition: (1) COPD exacerbation pt's Acute respiratory distress was resolved, Patient walked with RT into hallway about 150 feet. Patient had 94% sats in 1 L of oxygen. Patient had 88% sats on room air in rest, Had 86% sats on room air in ambulation, Patient had 89% sats on 1 Lpm oxygen by nasal cannula On the rest, Patient had 91% sats on 3 Lpm of oxygen on ambulation. I am ordering 1 Lpm oxygen on room air by CA for rest, 3 lpm of oxygen on ambulation by CA for pt's COPD. Patient is prescript of short term of steroid for her COPD Treatment (2) Hx of coronary artery disease Stable, resume home medication (3) Hypertension Stable, resume home medication (4) Osteoporosis Stable, resume home medication (5) Anxiety stable (6)hx of CVA Stable, resume home medication - [facility] History of Present Illness: Referral from Dr. Trevizo's HPI on 02/09/2020 Patient is an 84-year-old female with medical history significant for hypertension, hyperlipidemia, coronary artery disease, COPD, osteoarthritis, CVA who presented to the ED with complaint of dyspnea. She has been feeling congested for a couple of weeks. She was scheduled to see her primary care physician tomorrow but was coughing significantly today and could not breath so she presented to the ED. Her oxygen saturation was 88% on room air. She normally does not use oxygen at home. She was given 3 breathing treatments and IV Solu-Medrol. Despite this she still appeared to be dyspneic and was wheezing significantly. As a result she was presented for admission for further treatment. At bedside she was resting comfortably. She reported significant improvement in her breathing compared to when she initially presented in the ED. She denied chest pain, abdominal pain, fever. She reports nausea but no vomiting and reported chills as well. - HOSPITAL COURSE Hospital Course: Patient was admitted for difficulty breathing. Patient was found to have COPD exacerbation, patient was treated with intravenous steroid, breathing treatment with DuoNeb, supplemental of oxygen. After treatment, patient acute respiratory distress was resolved, patient had O2 desaturation study by RT, patient walk in the nurses station about 150 feet, Patient is required to have home oxygen at this time. patient report she had similar episode with COPD exacerbation in the before and in the end she also needed home oxygen to support. Patient also was recommended to have pulmonary rehab. Patient reported she quit cigarette smoking a few days ago before this admission. Patient was strongly advised to quit cigarette smoking. - ALLERGIES Allergies/Adverse Reactions: Allergies Allergy/AdvReac Type Severity Reaction Status Date / Time Sulfa (Sulfonamide Allergy Unknown Unknown Verified 02/09/20 18:35 Antibiotics) tramadol HCl * [From Ultram] Allergy Unknown Unknown Verified 02/09/20 18:35 - MEDICATIONS Home Medications: Ambulatory Orders Medication Instructions Recorded Confirmed Clopidogrel [Plavix] 75 mg PO DAILY 12/30/13 02/10/20 Losartan [Cozaar] 12.5 mg PO DAILY 12/30/13 02/10/20 Simvastatin [Zocor] 20 mg PO HS 12/30/13 02/10/20 carvediloL [Coreg] 12.5 mg PO DAILY 12/30/13 02/10/20 Nitroglycerin [Nitrostat] 0.4 mg SL PRN PRN 03/21/15 02/10/20 Tiotropium [place] [Spiriva 1 inh PO BID 10/01/18 02/10/20 Respimat] Albuterol 2.5 mg INH Q4H PRN 02/10/20 02/10/20 Aspirin EC [Ecotrin] 81 mg PO DAILY 02/10/20 02/10/20 Sodium Chloride [[place] Saline] 1 - 2 spray NS DAILY PRN 02/10/20 02/10/20 predniSONE [Deltasone] 20 mg PO [id number] #21 tab 02/11/20 - PHYSICAL EXAM AT DISCHARGE General Appearance: positive: No acute distress, Alert. negative: Lethargic Eyes Bilateral: positive: Normal inspection, PERRL, No lid inflammation ENT: positive: ENT inspection nml, No signs of dehydration. negative: Purulent nasal drainage Neck: positive: Nml inspection, No JVD, Trachea midline. negative: Thyromegaly, Tracheal deviation Respiratory: positive: Chest non-tender, No respiratory distress, Rales. negative: Wheezes, Rhonchi Cardiovascular: positive: Regular rate & rhythm, No murmur. negative: Tachycardia, Bradycardia, Systolic murmur, Diastolic murmur Peripheral Pulses: positive: 2+ Abdomen: positive: Non-tender, Nml bowel sounds, No distention. negative: Tenderness, Guarding, Rebound Back: positive: Nml inspection Skin: positive: Color nml, No rash, Warm, Dry. negative: Cyanosis, Diaphoresis, Pallor Extremities: positive: Non-tender, Full ROM, Nml appearance. negative: Calf tenderness Neurologic/Psychiatric: positive: Oriented x3, Motor nml, Sensation nml, Mood/affect nml. negative: Weakness, Sensory loss, Facial droop, Slurred/abnml speech, Depressed mood/affect - LABS Result Diagrams: 02/11/20 05:20 02/11/20 05:20 - FOLLOW UP Follow Up: After treated in hospital, your COPD symptoms are significantly improved, and you feel much better as well. you had O2 Desaturation study, you need home oxygen. Please follow up with RT instruction safety use oxygen in the home. You are prescribed short term usage of prednisone for your COPD, You may resume your other home medications as well You may followup with your PCP in one to two weeks, followup with pill coater as out-pt and may have pulmonary rehab in [facility] clinic. should your symptoms return or worsen, you may present ER or call 911 for help. - TIME SPENT Time Spent in Discharge (Minutes): 30
[2020-02-11 17:31] VITALS: BP 126/60
[2020-02-11] MEDS ORDERED: CLOPIDOGREL 75 MG TABLET PO SCH (22:00)
[2020-02-11] MEDS ORDERED: carvediloL 12.5 MG TABLET PO SCH (22:00)
== END 2020-02-11 17:13 | disposition home or self-care (01) | DRG 204 ==
LOC: EDUNIT# → ED 18:28 → MS2 21:26 → OBSVTOIN 02-10 12:32
PROVIDERS: ADMIT Internal Medicine; ATTEND Nurse Practitioner Gerontology
DX: R06.03 Acute respiratory distress (principal); R09.02 Hypoxemia; J44.1 Chronic obstructive pulmonary disease with (acute) exacerbation; F17.210 Nicotine dependence, cigarettes, uncomplicated; I25.2 Old myocardial infarction; I10 Essential (primary) hypertension; Z20.822 Contact with and (suspected) exposure to COVID-19; M81.0 Age-related osteoporosis without current pathological fracture; F41.9 Anxiety disorder, unspecified; Z86.73 Personal history of transient ischemic attack (TIA), and cerebral infarction without residual deficits; E78.5 Hyperlipidemia, unspecified; I25.10 Atherosclerotic heart disease of native coronary artery without angina pectoris; Z79.82 Long term (current) use of aspirin; Z79.02 Long term (current) use of antithrombotics/antiplatelets; Z66 Do not resuscitate
CPT/HCPCS: 36415; 71045; 80048; 80053; 83880; 85025; 87631; 94640; 96372; 96374; 96376; 99285; A9270; G0378; J1650; J7626; 0202U

== ENCOUNTER 2020-06-11 15:52 | Outpatient (CLI) | payer MEDICARE, OTHER | END 2020-06-11 15:53 | disposition critical access hospital (66) | LOC: EMS 15:52 | DX: R06.00 Dyspnea, unspecified (principal) | CPT/HCPCS: A0425; A0429 ==

== ENCOUNTER 2020-06-11 16:14 | Emergency (ER) | payer MEDICARE, OTHER ==
[2020-06-11] MEDS ORDERED: guaiFENesin/CODEINE 5 ML UDC PO STA (16:22)
[2020-06-11] MEDS ORDERED: methylPREDNISolone SUCCINATE 125 MG/2 ML VIAL IVP STA (16:23)
--- NOTE | 2020-06-11 16:25 | ED Physician Documentation ---
PD HPI DYSPNEA - Stated complaint Stated Complaint: DYSPNEA - History obtained from History obtained from: Patient - Additional information Additional information: 84-year-old woman with history of COPD, wears 3 L of oxygen at home at baseline. For the past 5 days she has had a productive cough, increased shortness of breath. Called the ambulance today. No DVT or signs reviewed with rigors. Got a DuoNeb on the [address] in which she has been helpful. She denies chest pain or pedal edema. She has been completely immunized against Covid. Review of Systems Ten Systems: 10 systems reviewed and negative Constitutional: reports: Reviewed and negative Ears: reports: Reviewed and negative Nose: reports: Reviewed and negative PD PAST MEDICAL HISTORY - Past Medical History Cardiovascular: Hypertension, High cholesterol, [place] Respiratory: COPD Neuro: CVA Endocrine/Autoimmune: None GI: None CLOTH SANDER: None : Incontinence HEENT: None Psych: None Musculoskeletal: Osteoarthritis Derm: None - Past Surgical History Past Surgical History: Yes /CLOTH SANDER: Hysterectomy - Present Medications Home Medications: Ambulatory Orders Medication Instructions Recorded Confirmed Clopidogrel [Plavix] 75 mg PO DAILY 12/30/13 02/10/20 Losartan [Cozaar] 12.5 mg PO DAILY 12/30/13 02/10/20 Simvastatin [Zocor] 20 mg PO HS 12/30/13 02/10/20 carvediloL [Coreg] 12.5 mg PO DAILY 12/30/13 02/10/20 Nitroglycerin [Nitrostat] 0.4 mg SL PRN PRN 03/21/15 02/10/20 Tiotropium [place] [Spiriva 1 inh PO BID 10/01/18 02/10/20 Respimat] Albuterol 2.5 mg INH Q4H PRN 02/10/20 02/10/20 Aspirin EC [Ecotrin] 81 mg PO DAILY 02/10/20 02/10/20 Sodium Chloride [[place] Saline] 1 - 2 spray NS DAILY PRN 02/10/20 02/10/20 predniSONE [Deltasone] 20 mg PO [id number] #21 tab 02/11/20 guaiFENesin/CODEINE [Robitussin AC] 5 - 10 ml PO Q6H PRN #120 ml 06/11/20 predniSONE [Deltasone] 20 mg PO [id number] #21 tab 06/11/20 - Allergies Allergies/Adverse Reactions: Allergies Allergy/AdvReac Type Severity Reaction Status Date / Time Sulfa (Sulfonamide Allergy Unknown Unknown Verified 06/11/20 16:27 Antibiotics) tramadol HCl * [From Ultram] Allergy Unknown Unknown Verified 06/11/20 16:27 - Social History Does the pt smoke?: Yes Smoking Status: Current every day smoker Does the pt drink ETOH?: No Does the pt have substance abuse?: No - Immunizations Immunizations are current?: Yes - POLST Patient has POLST: No POLST Status: DNR PD ED PE NORMAL - Vitals Vital signs reviewed: Yes - General General: Alert and oriented X 3, Other (She is breathless but speaking in full sentences, but not full paragraphs) - HEENT HEENT: PERRL, EOMI - Neck Neck: Supple, no meningeal sign, No bony TTP - Cardiac Cardiac: RRR, No murmur - Respiratory Respiratory: Other (Modest tachypnea and mild respiratory distress, rhonchorous throughout with diminished breath sounds throughout mildly.) - Abdomen Abdomen: Soft, Non tender - Back Back: No CVA TTP, No spinal TTP - Derm Derm: Normal color, Warm and dry - Extremities Extremities: No edema, No calf tenderness / cord - Neuro Neuro: Alert and oriented X 3, Normal speech Results - Vitals Vitals: Vital Signs - 24 hr 06/11/20 16:20 Temperature 36.7 C Heart Rate 97 Respiratory 22 Rate Blood Pressure 151/122 H O2 Saturation 99 Oxygen O2 Source [With Activity] Room air O2 Source Nasal cannula Oxygen Flow Rate 3 - Labs Labs: Laboratory Tests 06/11/20 06/11/20 06/11/20 16:36 16:36 16:36 WBC 10.0 RBC 4.04 L Hgb 12.7 Hct 40.1 MCV 99.3 H MCH 31.4 H MCHC 31.7 L RDW 12.7 Plt Count 234 MPV 10.1 VBG pH 7.391 VBG pCO2 45.1 VBG pO2 94.7 H VBG HCO3 26.7 VBG Total CO2 28.1 VBG O2 Saturation 97.5 H VBG Base Excess 1.4 Sodium 141 Potassium 4.4 Chloride 102 Carbon Dioxide 29 Anion Gap 10.0 BUN 14 Creatinine 0.7 Estimated GFR (MDRD) 80 L Glucose 108 H Calcium 9.9 Magnesium 2.0 PD MEDICAL DECISION MAKING - ED course ED course: 84-year-old woman presents with COPD exacerbation. No purulence to the cough. Chest x-ray clear without pneumonia. She is feeling much better after breathing treatments, IV steroids, and I think would help most of always a dose of codeine. Departure - Departure Disposition: 01 Home, Self Care Clinical Impression: COPD exacerbation Condition: Good Record reviewed to determine appropriate education?: Yes Instructions: ED COPD Flare Prescriptions: predniSONE [Deltasone] 20 mg PO [id number] #21 tab guaiFENesin/CODEINE [Robitussin AC] 5 - 10 ml PO Q6H PRN #120 ml PRN Reason: Cough Comments: Follow-up with your primary care physician. It sounds like you are not on a long-acting inhaled steroid, discussed that with your physician. Return if worse.
--- OUTSIDE RECORDS SUMMARY | 2020-06-11 16:26 | EXTERNAL MEDICAL SUMMARY RPT | Continuity of Care Document ---
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
[2020-06-11 16:27] VITALS: BP 151/122
[2020-06-11 16:47] LABS: VBG BASE EXCESS 1.4 mmol/L (-2 - +2); VBG HCO3 26.7 mmol/L (23-28); VBG PCO2 45.1 mmHg (41-51); VBG PH 7.391 (7.31-7.41); VBG PO2 94.7 mmHg (25-47); VBG TOTAL CO2 28.1 mmol/L (24-29)
[2020-06-11 16:48] LABS: VBG OXYGEN SATURATION 97.5 % (60-80)
[2020-06-11 16:51] LABS: EOSINOPHILS % (AUTO) 11.4 %
[2020-06-11 16:53] LABS: BASOPHILS % (AUTO) 0.5 %; HCT - HEMATOCRIT 40.1 % (37.0-47.0); HGB - HEMOGLOBIN 12.7 g/dL (12.0-16.0); LYMPHOCYTES % (AUTO) 16.6 %; MEAN CORPUSCULAR HEMOGLOBIN 31.4 pg (27.0-31.0); MEAN CORPUSCULAR HGB CONC 31.7 g/dL (32.0-36.0); MEAN CORPUSCULAR VOLUME 99.3 fL (81.0-99.0); MEAN PLATELET VOLUME 10.1 fL (7.9-10.8); MONOCYTES % (AUTO) 8.9 %; NEUTROPHILS % (AUTO) 62.2 %; PLT - PLATELET COUNT 234 10^3/uL (130-450); RED BLOOD COUNT 4.04 10^6/uL (4.20-5.40); RED CELL DISTRIBUTION WIDTH 12.7 % (12.0-15.0)
[2020-06-11 16:56] LABS: CALCIUM 9.9 mg/dL (8.5-10.3); CREATININE 0.7 mg/dL (0.4-1.0); POTASSIUM 4.4 mmol/L (3.5-5.0)
--- NOTE | 2020-06-11 16:57 | XRAY Report ---
PROCEDURE: Chest 1 View X-Ray INDICATIONS: Dyspnea TECHNIQUE: One view of the chest was acquired. COMPARISON: 02/09/2020 chest radiograph FINDINGS: Surgical changes and devices: None. Lungs and pleura: No pleural effusions or pneumothorax. Hyperexpanded lungs. No focal consolidation. Mediastinum: Mediastinal contours appear normal. Heart size is normal. Bones and chest wall: No suspicious bony lesions. Overlying soft tissues appear unremarkable. IMPRESSION: Hyperexpanded lungs suggestive of COPD, similar to comparison studies. Reviewed by: Haroon Guerra MD on 06/11/2020 4:56 PM PDT Approved by: Haroon Guerra MD on 06/11/2020 4:56 PM PDT Station ID: [id number]
[2020-06-11 17:00] LABS: ABNORMAL LYMPHS % (MANUAL) 0 %; BAND NEUTROPHILS % (MANUAL) 0 %
[2020-06-11 17:25] LABS: DIFFERENTIAL COMMENT MANUAL DIFFERENTIAL; EOSINOPHILS # (MANUAL) 1.6 10^3/uL (0-0.7); LYMPHOCYTES # (MANUAL) 1.7 10^3/uL (1.5-3.5); LYMPHOCYTES % (MANUAL) 15 %; MONOCYTES # (MANUAL) 0.5 10^3/uL (0.0-1.0); NEUTROPHILS # (MANUAL) 6.2 10^3/uL (1.5-6.6); PLATELET ESTIMATE, MANUAL NORMAL (130-450,000) (NORMAL); PLATELET MORPHOLOGY NORMAL APPEARANCE (NORMAL); RBC MORPHOLOGY (MULTIPLE) NORMAL APPEARANCE (NORMAL); REACTIVE LYMPHS % (MANUAL) 2 %
[2020-06-11 18:21] LABS: B. PARAPERTUSSIS- RESP PCR PAN NOT DETECTED; B. PERTUSSIS- RESP PCR PANEL NOT DETECTED; C. PNEUMONIAE- RESP PCR PANEL NOT DETECTED; CORONAVIRUS 229E-RESP PCR NOT DETECTED; CORONAVIRUS HKU1-RESP PCR NOT DETECTED; CORONAVIRUS NL63-RESP PCR NOT DETECTED; CORONAVIRUS OC43-RESP PCR NOT DETECTED; HUMAN METAPNEUMOVIRUS NOT DETECTED; INFLUENZA A- RESP PCR PANEL NOT DETECTED; INFLUENZA B - RESP PCR PANEL NOT DETECTED; M. PNEUMONIAE- RESP PCR PANEL NOT DETECTED; PARAINFLUENZA VIRUS 1 NOT DETECTED; PARAINFLUENZA VIRUS 2 NOT DETECTED; PARAINFLUENZA VIRUS 3 NOT DETECTED; PARAINFLUENZA VIRUS 4 NOT DETECTED; RHINOVIRUS/ENTEROVIRUS NOT DETECTED; RSV- RESP PCR PANEL NOT DETECTED; SARS-CoV-2 -RESP PCR PANEL NOT DETECTED
== END 2020-06-11 17:30 | disposition home or self-care (01) ==
LOC: EDUNIT# → EDSEX → SUPCPDRO 16:14 → ED 16:14
DX: J44.1 Chronic obstructive pulmonary disease with (acute) exacerbation (principal); I10 Essential (primary) hypertension; Z99.81 Dependence on supplemental oxygen; F17.200 Nicotine dependence, unspecified, uncomplicated; Z20.822 Contact with and (suspected) exposure to COVID-19
CPT/HCPCS: 36415; 71045; 80048; 82803; 83735; 85025; 87631; 96374; 99284; 99285; A9270; 0202U

== ENCOUNTER 2020-09-04 10:17 | Outpatient (CLI) | payer MEDICARE, OTHER | END 2020-09-04 10:18 | disposition critical access hospital (66) | LOC: EMS 10:17 | DX: R06.00 Dyspnea, unspecified (principal); R07.89 Other chest pain | CPT/HCPCS: A0425; A0427 ==

== ENCOUNTER 2020-09-04 10:42 | Emergency (ER) | payer MEDICARE, OTHER ==
--- NOTE | 2020-09-04 11:41 | XRAY Report ---
PROCEDURE: Chest 1 View X-Ray INDICATIONS: Chest Pain TECHNIQUE: One view of the chest was acquired. COMPARISON: 06/11/2020 and 02/09/2020 FINDINGS: Surgical changes and devices: None. Lungs and pleura: No pleural effusions or pneumothorax. Hyperinflation is again seen. No focal infil trate. Mediastinum: Mediastinal contours appear normal. Heart size is mildly enlarged. Bones and chest wall: No suspicious bony lesions. Overlying soft tissues appear unremarkable. IMPRESSION: No acute cardiopulmonary pathology. Suggestion of COPD unchanged from prior study. Reviewed by: Virgil Calero MD on 09/04/2020 11:40 AM PDT Approved by: Virgil Calero MD on 09/04/2020 11:40 AM PDT Station ID: [id number]
[2020-09-04 11:46] LABS: BASOPHILS # (AUTO) 0.1 10^3/uL (0.0-0.1); BASOPHILS % (AUTO) 0.9 %; EOSINOPHILS # (AUTO) 0.6 10^3/uL (0.0-0.7); EOSINOPHILS % (AUTO) 5.3 %; HCT - HEMATOCRIT 41.1 % (37.0-47.0); HGB - HEMOGLOBIN 12.7 g/dL (12.0-16.0); LYMPHOCYTES # (AUTO) 1.7 10^3/uL (1.5-3.5); LYMPHOCYTES % (AUTO) 16.2 %; MEAN CORPUSCULAR HEMOGLOBIN 31.2 pg (27.0-31.0); MEAN CORPUSCULAR HGB CONC 30.9 g/dL (32.0-36.0); MEAN PLATELET VOLUME 9.9 fL (7.9-10.8); MONOCYTES # (AUTO) 1.2 10^3/uL (0.0-1.0); MONOCYTES % (AUTO) 11.1 %; NEUTROPHILS # (AUTO) 6.4 10^3/uL (1.5-6.6); PLT - PLATELET COUNT 251 10^3/uL (130-450); RED BLOOD COUNT 4.07 10^6/uL (4.20-5.40); RED CELL DISTRIBUTION WIDTH 12.8 % (12.0-15.0); WHITE BLOOD COUNT 10.3 x10^3/uL (4.8-10.8)
[2020-09-04] MEDS ORDERED: methylPREDNISolone SUCCINATE 125 MG/2 ML VIAL IVP STA (12:38)
--- NOTE | 2020-09-04 12:38 | ED Physician Documentation ---
History of Present Illness - Stated complaint Stated Complaint: SOA - Chief complaint Chief Complaint: Cardiac - History obtained from History obtained from: Patient - History of Present Illness Timing: How many weeks ago (1) Pain level max: 0 Pain level now: 0 - Additonal information Additional information: Patient is an 84-year-old female with a longstanding history of COPD and CHF. She states that she has been feeling more short of breath over the past few weeks. Saw her doctor, was started on prednisone and felt like She was retaining fluid. She states she still felt short of breath today. She is on 3 L nasal cannula at home. No fevers. No chills. No change to her cough or sputum production. Review of Systems Ten Systems: 10 systems reviewed and negative Constitutional: denies: Fever, Chills Nose: denies: Rhinorrhea / runny nose, Congestion Cardiac: denies: Chest pain / pressure, Palpitations Respiratory: reports: Dyspnea, Wheezing. 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 - Present Medications Home Medications: Ambulatory Orders Medication Instructions Recorded Confirmed Clopidogrel [Plavix] 75 mg PO DAILY 12/30/13 09/04/20 Losartan [Cozaar] 12.5 mg PO DAILY 12/30/13 09/04/20 Simvastatin [Zocor] 20 mg PO HS 12/30/13 09/04/20 carvediloL [Coreg] 12.5 mg PO DAILY 12/30/13 09/04/20 Nitroglycerin [Nitrostat] 0.4 mg SL PRN PRN 03/21/15 09/04/20 Tiotropium [place] [Spiriva 1 inh PO BID 10/01/18 09/04/20 Respimat] Albuterol 2.5 mg INH Q4H PRN 02/10/20 09/04/20 Aspirin EC [Ecotrin] 81 mg PO DAILY 01/04/21 07/30/21 Sodium Chloride [[place] Saline] 1 - 2 spray NS DAILY PRN 02/10/20 09/04/20 predniSONE [Deltasone] 20 mg PO [id number] #21 tab 06/11/20 09/04/20 Fluticasone/Salmeterol [Advair 1 each IH BID #1 pkg 09/04/20 250-50 Diskus] Levalbuterol [Xopenex] 1.25 mg INH RTQ4H 09/04/20 09/04/20 dexAMETHasone [Decadron] 4 mg PO DAILY #7 tablet 09/04/20 - Allergies Allergies/Adverse Reactions: Allergies Allergy/AdvReac Type Severity Reaction Status Date / Time Sulfa (Sulfonamide Allergy Unknown Unknown Verified 09/04/20 10:53 Antibiotics) tramadol HCl * [From Ultram] Allergy Unknown Unknown Verified 09/04/20 10:53 - Social History Does the pt smoke?: No Smoking Status: Never smoker Does the pt drink ETOH?: No Does the pt have substance abuse?: No - Immunizations Immunizations are current?: Yes - POLST Patient has POLST: No POLST Status: DNR PD ED PE NORMAL - Vitals Vital signs reviewed: Yes - General General: Alert and oriented X 3, No acute distress - HEENT HEENT: Moist mucous membranes - Neck Neck: Supple, no meningeal sign - Cardiac Cardiac: RRR, Strong equal pulses - Respiratory Respiratory: No respiratory distress, Clear bilaterally - Abdomen Abdomen: Soft, Non tender, Non distended - Derm Derm: Warm and dry - Extremities Extremities: No edema - Neuro Neuro: Alert and oriented X 3 - Psych Psych: Normal mood, Normal affect Results - Vitals Vitals: Vital Signs - 24 hr 09/04/20 09/04/20 09/04/20 10:49 11:39 13:44 Temperature 36.2 C L Heart Rate 89 86 88 Respiratory 26 H 30 H 18 Rate Blood Pressure 137/92 H 133/69 H O2 Saturation 99 97 09/04/20 13:59 Temperature Heart Rate 83 Respiratory 23 Rate Blood Pressure 133/81 H O2 Saturation 97 Oxygen O2 Source [] Room air O2 Source Room air - EKG (time done) 1149 Rate: Rate (enter#) (84) Rhythm: NSR [place]: Normal Intervals: Normal [place], RBBB QRS: Normal Ischemia: Normal ST segments, Q waves (v1-2) - Labs Labs: Laboratory Tests 09/04/20 09/04/20 09/04/20 11:42 11:42 12:24 WBC 10.3 RBC 4.07 L Hgb 12.7 Hct 41.1 MCV 101.0 H MCH 31.2 H MCHC 30.9 L RDW 12.8 Plt Count 251 MPV 9.9 Neut # (Auto) 6.4 Lymph # (Auto) 1.7 Petroleum # (Auto) 1.2 H Eos # (Auto) 0.6 Baso # (Auto) 0.1 Absolute Nucleated RBC 0.00 Nucleated RBC % 0.0 Sodium Potassium Chloride Carbon Dioxide Anion Gap BUN Creatinine Estimated GFR (MDRD) Glucose Calcium Total Bilirubin AST ALT Alkaline Phosphatase Troponin I High Sens 9.5 B-Natriuretic Peptide 194 H Total Protein Albumin Globulin Albumin/Globulin Ratio Lipase 09/04/20 12:24 WBC RBC Hgb Hct MCV MCH MCHC RDW Plt Count MPV Neut # (Auto) Lymph # (Auto) Petroleum # (Auto) Eos # (Auto) Baso # (Auto) Absolute Nucleated RBC Nucleated RBC % Sodium 139 Potassium 4.0 Chloride 99 L Carbon Dioxide 32 Anion Gap 8.0 BUN 12 Creatinine 0.5 Estimated GFR (MDRD) 118 Glucose 102 H Calcium 9.3 Total Bilirubin 0.5 AST 25 ALT 29 Alkaline Phosphatase 37 L Troponin I High Sens B-Natriuretic Peptide Total Protein 6.5 L Albumin 3.9 Globulin 2.6 Albumin/Globulin Ratio 1.5 Lipase 29 - Rads (name of study) cxr Radiology: Final report received, EMP read contemporaneously, See rad report (No acute cardiopulmonary pathology. Suggestion of COPD unchanged from prior study. ) PD MEDICAL DECISION MAKING - ED course Complexity details: reviewed results, re-evaluated patient, considered differential, d/w patient ED course: 84-year-old female with what appears to be a COPD flare. She is well-appearing, nontoxic. Afebrile. No hypoxia. She is maintained on her normal 3 L of home O2. Given Solu-Medrol here. Feels much better after breathing treatment. Does not appear to be related to CHF. We will trial her on dexamethasone for home and she prefers not to have prednisone. We will also trial her on a long-acting treatment, Advair. Patient counseled regarding signs and symptoms for which I believe and urgent re-evaluation would be necessary. Patient with good understanding of and agreement to plan and is comfortable going home at this time This document was made in part using voice recognition software. While efforts are made to proofread this document, sound alike and grammatical errors may occur. Departure - Departure Disposition: 01 Home, Self Care Clinical Impression: COPD exacerbation Condition: Good Instructions: ED COPD Flare Follow-Up: Sal Gage MD [Primary Care Provider] - Within 1 week Prescriptions: Fluticasone/Salmeterol [Advair 250-50 Diskus] 1 each IH BID #1 pkg dexAMETHasone [Decadron] 4 mg PO DAILY #7 tablet Comments: Follow-up with your doctor for further care. We will trial you on a short course of dexamethasone and trial starting you on a long-acting Medication to help with your COPD as well. Return if you worsen
[2020-09-04 12:45] LABS: ALBUMIN 3.9 g/dL (3.2-5.5); ALBUMIN/GLOBULIN RATIO 1.5 (1.0-2.2); BILIRUBIN,TOTAL 0.5 mg/dL (0.2-1.0); CALCIUM 9.3 mg/dL (8.5-10.3); CREATININE 0.5 mg/dL (0.4-1.0); TOTAL PROTEIN 6.5 g/dL (6.7-8.2)
[2020-09-04] MEDS ORDERED: ALBUTEROL NEB 2.5 MG/3 ML INH STA (13:23)
[2020-09-04 15:17] VITALS: BP 139/73
== END 2020-09-04 15:18 | disposition home or self-care (01) ==
LOC: EDUNIT# → ED 10:42
DX: J44.1 Chronic obstructive pulmonary disease with (acute) exacerbation (principal); Z99.81 Dependence on supplemental oxygen; I11.0 Hypertensive heart disease with heart failure; I50.9 Heart failure, unspecified
CPT/HCPCS: 36415; 80053; 83690; 83880; 84484; 85025; 93005; 94640; 96374; 99284

== ENCOUNTER 2021-01-17 22:17 | Outpatient (CLI) | payer MEDICARE, OTHER | END 2021-01-17 22:18 | disposition critical access hospital (66) | LOC: EMS 22:17 | DX: R06.82 Tachypnea, not elsewhere classified (principal) | CPT/HCPCS: A0425; A0427 ==

== ENCOUNTER 2021-01-17 22:36 | Emergency (ER) | payer MEDICARE, OTHER ==
[2021-01-17] MEDS ORDERED: ALBUTEROL NEB 2.5 MG/3 ML INH STA (22:53)
--- NOTE | 2021-01-17 23:00 | ED Physician Documentation ---
PD HPI DYSPNEA - Stated complaint Stated Complaint: SOA - Chief complaint Chief Complaint: Resp - History obtained from History obtained from: Patient, EMS - Additional information Additional information: Patient is brought to the emergency department by EMS for chief complaint of shortness of breath. She states that she was exposed to her son last week, who had a cold, and she then began to develop nasal and respiratory congestion and a cough. She has CHF and COPD at baseline is and is on home O2 at 3 L [id number]. She states that she has felt short of breath and has put her oxygen up to 3-1/2 L over the last couple days, because she is been feeling increasingly worse. She denies chest pain. She was placed on Zithromax on the eighth and took her last dose today. No fevers or chills. The patient states she is vaccinated for Covid and has not had any Covid exposures. Her whole family is also vaccinated. She lives at home with her . Medics state that when they got there, the patient had already done an albuterol nebulizer treatment at home and was still quite wheezy and short of breath. They gave her 125 mg of Solu-Medrol IV in route, as well as the DuoNeb, and the patient seems to be feeling and looking quite a bit better. The patient reports that she still does not feel like her usual self and feels like her breathing is worse than usual, but that it is a lot better than it was. He does note that she has not been sleeping well, due to the breathing issues, and that has been wearing on her. She was started on Lasix about a month ago because she felt as though she was retaining fluid. She denies any swelling in her ankles or lower legs, but does feel as though her abdomen is bloated and her breasts are larger than usual. The patient does have a history of coronary artery disease, but as above, no chest pain. No other complaints at this time. Review of Systems Ten Systems: 10 systems reviewed and negative Constitutional: reports: Reviewed and negative Eyes: reports: Reviewed and negative Ears: reports: Reviewed and negative Nose: reports: Reviewed and negative Throat: reports: Reviewed and negative Cardiac: reports: Reviewed and negative Respiratory: reports: Dyspnea, Cough, Wheezing GI: reports: Reviewed and negative : reports: Reviewed and negative Skin: reports: Reviewed and negative Musculoskeletal: reports: Reviewed and negative Neurologic: reports: Reviewed and negative Psychiatric: reports: Reviewed and negative Endocrine: reports: Reviewed and negative Immunocompromised: reports: Reviewed and negative PD PAST MEDICAL HISTORY - Past Medical History Cardiovascular: Hypertension, High cholesterol, [place] Respiratory: COPD Neuro: CVA Endocrine/Autoimmune: None GI: None 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: 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 : Incontinence HEENT: None Psych: None Musculoskeletal: Osteoarthritis Derm: None - Past Surgical History Past Surgical History: Yes /DATAPOWER DEVELOPER: Hysterectomy - Present Medications Home Medications: Ambulatory Orders Medication Instructions Recorded Confirmed Clopidogrel [Plavix] 75 mg PO DAILY 12/30/13 01/17/21 Losartan [Cozaar] 12.5 mg PO DAILY 12/30/13 01/17/21 Simvastatin [Zocor] 20 mg PO HS 12/30/13 01/17/21 carvediloL [Coreg] 12.5 mg PO DAILY 12/30/13 01/17/21 Tiotropium [place] [Spiriva 1 inh PO BID 10/01/18 01/17/21 Respimat] Albuterol 2.5 mg INH Q4H PRN 02/10/20 01/17/21 Aspirin EC [Ecotrin] 81 mg PO DAILY 02/10/20 01/17/21 Sodium Chloride [[place] Saline] 1 - 2 spray NS DAILY PRN 02/10/20 01/17/21 Fluticasone/Salmeterol [Advair 1 each IH BID #1 pkg 09/04/20 01/17/21 250-50 Diskus] Levalbuterol [Xopenex] 1.25 mg INH RTQ4H 09/04/20 01/17/21 Cholecalciferol (Vitamin D3) 1 cap PO DAILY 01/17/21 01/17/21 [Vitamin D3] Cyanocobalamin (Vitamin B-12) 2,500 mcg PO DAILY 01/17/21 01/17/21 [Vitamin B12] Furosemide [Lasix] 20 mg PO DAILY 01/17/21 01/17/21 Gabapentin [Neurontin] 100 mg PO HS 01/17/21 01/17/21 predniSONE [Deltasone] 60 mg PO DAILY 5 Days #15 tablet 01/18/21 - Allergies Allergies/Adverse Reactions: Allergies Allergy/AdvReac Type Severity Reaction Status Date / Time Sulfa (Sulfonamide Allergy Unknown Unknown Verified 01/17/21 22:52 Antibiotics) tramadol HCl * [From Ultram] Allergy Unknown Unknown Verified 01/17/21 22:52 - Social History Does the pt smoke?: No Smoking Status: Never smoker Does the pt drink ETOH?: No Does the pt have substance abuse?: No - Immunizations Immunizations are current?: Yes - POLST Patient has POLST: No POLST Status: DNR PD ED PE NORMAL - Vitals Vital signs reviewed: Yes - General General: Alert and oriented X 3, Well developed/nourished, Other (Mild respiratory distress;) - HEENT HEENT: Atraumatic, PERRL, EOMI, Moist mucous membranes - Neck Neck: Supple, no meningeal sign - Cardiac Cardiac: RRR, No murmur - Respiratory Respiratory: Other (Respiratory distress; patient is speaking in full sentences but respirations are labored. Decreased air movement and respirations sound tight, but wheezing is minimal. 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, Normal speech - Psych Psych: Normal mood, Normal affect Results - Vitals Vitals: Vital Signs - 24 hr 01/17/21 01/17/21 01/17/21 22:49 22:55 23:03 Temperature 36.3 C L Heart Rate 104 H 87 88 Respiratory 27 H 18 22 Rate Blood Pressure 182/82 H O2 Saturation 100 100 01/17/21 01/18/21 01/18/21 23:41 01:00 02:56 Temperature Heart Rate 98 83 92 Respiratory 24 22 22 Rate Blood Pressure 134/76 H 136/79 H 129/62 O2 Saturation 98 99 98 Oxygen O2 Source [With Activity] Room air O2 Source Nasal cannula Oxygen Flow Rate 3 - EKG (time done) 2308 Rate: Rate (enter#) (92) Rhythm: NSR [place]: Normal, Posterior hemiblock Intervals: RBBB QRS: Normal Ischemia: Normal ST segments, Non specific changes Compare to prior EKG: Old EKG unavailable Computer interpretation: Agree with computer - Labs Labs: Laboratory Tests 01/17/21 01/17/21 01/17/21 23:00 23:09 23:09 WBC 8.2 RBC 4.16 L Hgb 12.7 Hct 40.2 MCV 96.6 MCH 30.5 MCHC 31.6 L RDW 12.2 Plt Count 255 MPV 10.3 Neut # (Auto) 4.5 Lymph # (Auto) 2.4 [place] # (Auto) 0.7 Eos # (Auto) 0.6 Baso # (Auto) 0.1 Absolute Nucleated RBC 0.00 Nucleated RBC % 0.0 Sodium 137 Potassium 3.5 Chloride 96 L Carbon Dioxide 30 Anion Gap 11.0 BUN 10 Creatinine 0.6 Estimated GFR (MDRD) 95 Glucose 113 H Calcium 9.7 Total Bilirubin 0.6 AST 22 ALT 11 Alkaline Phosphatase 56 B-Natriuretic Peptide Total Protein 7.4 Albumin 4.3 Globulin 3.1 Albumin/Globulin Ratio 1.4 Lipase 25 Nasal Adenovirus (PCR) NOT DETECTED Nasal B. parapertussis DNA (PCR) NOT DETECTED Nasal Coronavir 229E PCR NOT DETECTED Nasal Coronavir HKU1 PCR NOT DETECTED Nasal Coronavir NL63 PCR NOT DETECTED Nasal Coronavir OC43 PCR NOT DETECTED Nasal Enterovir/Rhinovir PCR NOT DETECTED Nasal Influenza B PCR NOT DETECTED Nasal Influenza A PCR NOT DETECTED Nasal Parainfluen 1 PCR NOT DETECTED Nasal Parainfluen 2 PCR NOT DETECTED Nasal Parainfluen 3 PCR NOT DETECTED Nasal Parainfluen 4 PCR NOT DETECTED Nasal RSV (PCR) NOT DETECTED Nasal B.pertussis DNA PCR NOT DETECTED Nasal C.pneumoniae (PCR) NOT DETECTED Armando Human Metapneumo PCR NOT DETECTED Nasal M.pneumoniae (PCR) NOT DETECTED Nasal SARS-CoV-2 (PCR) NOT DETECTED 01/18/21 00:24 WBC RBC Hgb Hct MCV MCH MCHC RDW Plt Count MPV Neut # (Auto) Lymph # (Auto) [place] # (Auto) Eos # (Auto) Baso # (Auto) Absolute Nucleated RBC Nucleated RBC % Sodium Potassium Chloride Carbon Dioxide Anion Gap BUN Creatinine Estimated GFR (MDRD) Glucose Calcium Total Bilirubin AST ALT Alkaline Phosphatase B-Natriuretic Peptide 212 H Total Protein Albumin Globulin Albumin/Globulin Ratio Lipase Nasal Adenovirus (PCR) Nasal B. parapertussis DNA (PCR) Nasal Coronavir 229E PCR Nasal Coronavir HKU1 PCR Nasal Coronavir NL63 PCR Nasal Coronavir OC43 PCR Nasal Enterovir/Rhinovir PCR Nasal Influenza B PCR Nasal Influenza A PCR Nasal Parainfluen 1 PCR Nasal Parainfluen 2 PCR Nasal Parainfluen 3 PCR Nasal Parainfluen 4 PCR Nasal RSV (PCR) Nasal B.pertussis DNA PCR Nasal C.pneumoniae (PCR) Armando Human Metapneumo PCR Nasal M.pneumoniae (PCR) Nasal SARS-CoV-2 (PCR) - Rads (name of study) CXR Radiology: Final report received, EMP read indepedently, See rad report (neg) PD MEDICAL DECISION MAKING - ED course Complexity details: reviewed results, re-evaluated patient, considered differential, d/w patient ED course: Patient was worked up with labs, EKG, and chest x-ray. She had already been treated with IV steroids in route, and that had a DuoNeb and a single albuterol treatment, and I did feel that 1 more albuterol treatment would be beneficial. The patient had a negative chest x-ray and respiratory PCR, and labs were unremarkable. She was feeling much better after the nebulizer treatment in the emergency department, as well as some observation time to let the Solu-Medrol kick in. The patient's vital signs look good, including heart rate, blood pressure, and oxygen saturation. Along with her chest x-ray being negative, her BNP was not significantly elevated. I felt the patient was stable for discharge home. We have discussed that she is most likely having a COPD exacerbation in response to the viral illness that she contracted from her son. We have discussed that she should do her nebulizer treatments every 4 hours during waking hours and that she should take a steroid course as directed. We have discussed the usual indications for return. Departure - Departure Disposition: 01 Home, Self Care Clinical Impression: COPD exacerbation Upper respiratory tract infection Qualifiers: URI type: unspecified viral URI Qualified Code(s): J06.9 - Acute upper respiratory infection, unspecified Condition: Stable Instructions: ED COPD Flare Prescriptions: predniSONE [Deltasone] 60 mg PO DAILY 5 Days #15 tablet Comments: Your chest x-ray and oxygen levels look good. We have checked labs to look for congestive heart failure, and this does not show significant elevation. Most likely, the viral illness that you caught set off a COPD exacerbation, which is best treated by steroids and every 4 hour nebulizer treatments. The antibiotics likely have not helped because you do not appear to have a bacterial infection on chest x-ray. You have been given breathing treatments and your first dose of steroids here in the emergency department. Please have any your family members spanish moss picker your prescription for prednisone at the [facility] in [place] tomorrow and you can take your next dose then. You should take your nebulizer treatments every 4 hours until you are feeling better. If you feel like anything is worsening despite treatment, then please return to the emergency department. Discharge Date/Time: 01/18/21 02:57
[2021-01-17 23:22] LABS: BASOPHILS # (AUTO) 0.1 10^3/uL (0.0-0.1); BASOPHILS % (AUTO) 0.6 %; EOSINOPHILS # (AUTO) 0.6 10^3/uL (0.0-0.7); EOSINOPHILS % (AUTO) 6.7 %; HCT - HEMATOCRIT 40.2 % (37.0-47.0); HGB - HEMOGLOBIN 12.7 g/dL (12.0-16.0); LYMPHOCYTES # (AUTO) 2.4 10^3/uL (1.5-3.5); LYMPHOCYTES % (AUTO) 28.9 %; MEAN CORPUSCULAR HEMOGLOBIN 30.5 pg (27.0-31.0); MEAN CORPUSCULAR HGB CONC 31.6 g/dL (32.0-36.0); MEAN CORPUSCULAR VOLUME 96.6 fL (81.0-99.0); MEAN PLATELET VOLUME 10.3 fL (7.9-10.8); MONOCYTES # (AUTO) 0.7 10^3/uL (0.0-1.0); MONOCYTES % (AUTO) 8.7 %; NEUTROPHILS # (AUTO) 4.5 10^3/uL (1.5-6.6); NEUTROPHILS % (AUTO) 54.9 %; PLT - PLATELET COUNT 255 10^3/uL (130-450); RED BLOOD COUNT 4.16 10^6/uL (4.20-5.40); RED CELL DISTRIBUTION WIDTH 12.2 % (12.0-15.0); WHITE BLOOD COUNT 8.2 x10^3/uL (4.8-10.8)
[2021-01-17 23:35] LABS: ALBUMIN 4.3 g/dL (3.2-5.5); ALBUMIN/GLOBULIN RATIO 1.4 (1.0-2.2); BILIRUBIN,TOTAL 0.6 mg/dL (0.2-1.0); CALCIUM 9.7 mg/dL (8.5-10.3); CREATININE 0.6 mg/dL (0.4-1.0); POTASSIUM 3.5 mmol/L (3.5-5.0); TOTAL PROTEIN 7.4 g/dL (6.7-8.2)
[2021-01-18 00:14] LABS: B. PARAPERTUSSIS- RESP PCR PAN NOT DETECTED; B. PERTUSSIS- RESP PCR PANEL NOT DETECTED; C. PNEUMONIAE- RESP PCR PANEL NOT DETECTED; CORONAVIRUS 229E-RESP PCR NOT DETECTED; CORONAVIRUS HKU1-RESP PCR NOT DETECTED; CORONAVIRUS NL63-RESP PCR NOT DETECTED; CORONAVIRUS OC43-RESP PCR NOT DETECTED; HUMAN METAPNEUMOVIRUS NOT DETECTED; INFLUENZA A- RESP PCR PANEL NOT DETECTED; INFLUENZA B - RESP PCR PANEL NOT DETECTED; M. PNEUMONIAE- RESP PCR PANEL NOT DETECTED; PARAINFLUENZA VIRUS 1 NOT DETECTED; PARAINFLUENZA VIRUS 2 NOT DETECTED; PARAINFLUENZA VIRUS 3 NOT DETECTED; PARAINFLUENZA VIRUS 4 NOT DETECTED; RHINOVIRUS/ENTEROVIRUS NOT DETECTED; RSV- RESP PCR PANEL NOT DETECTED; SARS-CoV-2 -RESP PCR PANEL NOT DETECTED
--- NOTE | 2021-01-18 00:43 | XRAY Report ---
PROCEDURE: Chest 1 View X-Ray INDICATIONS: cough/dyspnea TECHNIQUE: One view of the chest was acquired. COMPARISON: CXR 09/04/2020, 06/11/2020. CT chest 10/01/2018. FINDINGS: Surgical changes and devices: None. Lungs and pleura: No pleural effusions or pneumothorax. Lungs are clear. Mediastinum: Mediastinal contours appear normal. Heart size is prominent. Bones and chest wall: No suspicious bony lesions. Overlying soft tissues appear unremarkable. IMPRESSION: No acute cardiopulmonary abnormality. Reviewed by: Guicho Beltre MD on 01/18/2021 12:42 AM PST Approved by: Guicho Beltre MD on 01/18/2021 12:42 AM PST Station ID: [id number]
[2021-01-18] MEDS ORDERED: predniSONE 20 MG TABLET ONE (02:31)
[2021-01-18 02:58] VITALS: BP 129/62
[2021-01-18] MEDS ORDERED: predniSONE 20 MG TABLET PO STA (03:01)
== END 2021-01-18 02:57 | disposition home or self-care (01) ==
LOC: EDUNIT# → ED 22:36 → SUPCPDRO 22:36 → ED 01-18 02:57
DX: J44.1 Chronic obstructive pulmonary disease with (acute) exacerbation (principal); J06.9 Acute upper respiratory infection, unspecified; Z66 Do not resuscitate; Z20.822 Contact with and (suspected) exposure to COVID-19
CPT/HCPCS: 36415; 71045; 80048; 80053; 83690; 83880; 85025; 87631; 93005; 94640; 99284; J7512; 0202U

== ENCOUNTER 2021-01-25 17:47 | Outpatient (CLI) | payer MEDICARE, OTHER | END 2021-01-25 17:48 | disposition critical access hospital (66) | LOC: EMS 17:47 | DX: R10.31 Right lower quadrant pain (principal) | CPT/HCPCS: A0425; A0429 ==

== ENCOUNTER 2021-01-25 18:07 | Emergency (ER) | payer MEDICARE, OTHER ==
[2021-01-25] MEDS ORDERED: IOPAMIDOL-300 100 ML VIAL ONE (18:42)
[2021-01-25 18:52] LABS: BASOPHILS % (AUTO) 0.2 %; EOSINOPHILS % (AUTO) 0.1 %; HCT - HEMATOCRIT 38.3 % (37.0-47.0); HGB - HEMOGLOBIN 12.1 g/dL (12.0-16.0); LYMPHOCYTES # (AUTO) 0.9 10^3/uL (1.5-3.5); LYMPHOCYTES % (AUTO) 5.3 %; MEAN CORPUSCULAR HEMOGLOBIN 30.3 pg (27.0-31.0); MEAN CORPUSCULAR HGB CONC 31.6 g/dL (32.0-36.0); MEAN CORPUSCULAR VOLUME 95.8 fL (81.0-99.0); MEAN PLATELET VOLUME 10.3 fL (7.9-10.8); MONOCYTES # (AUTO) 1.1 10^3/uL (0.0-1.0); MONOCYTES % (AUTO) 7.2 %; NEUTROPHILS # (AUTO) 13.7 10^3/uL (1.5-6.6); NEUTROPHILS % (AUTO) 85.8 %; PLT - PLATELET COUNT 269 10^3/uL (130-450); RED CELL DISTRIBUTION WIDTH 12.2 % (12.0-15.0); WHITE BLOOD COUNT 15.9 x10^3/uL (4.8-10.8)
[2021-01-25] MEDS ORDERED: HYDROcod/ACETAM 5/325 MG TABLET PO STA (19:01)
--- NOTE | 2021-01-25 19:03 | ED Physician Documentation ---
History of Present Illness - Stated complaint Stated Complaint: ABD PAIN - Chief complaint Chief Complaint: Abd Pain - Additonal information Additional information: 85-year-old female presents the emergency department with chief complaint of 3 months of lower abdominal pain. She states that she often feels bloating in her lower belly legs and breast though there is no objective swelling. She reports a deep burning pain in her lower abdomen as well as backup. She did take a Tylenol with codeine as well as an extra strength Tylenol without relief of the pain. Denies any weight loss. No dysuria urgency or frequency. No melena or change in bowel habits. She does have a history of hypertension as well as COPD. She is on baseline nasal cannula 2 L. Normal sats. She is denying any chest pain or shortness of air. Patient was seen here on 17 January for shortness of air. Diagnosed with a COPD exacerbation and ultimately discharged home with a prednisone burst. Review of Systems Constitutional: denies: Fever, Chills Eyes: reports: Reviewed and negative Nose: reports: Reviewed and negative Throat: reports: Reviewed and negative Cardiac: reports: Reviewed and negative Respiratory: reports: Reviewed and negative GI: reports: Abdominal Pain. 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 CASER: Hysterectomy - Present Medications Home Medications: Ambulatory Orders Medication Instructions Recorded Confirmed Clopidogrel [Plavix] 75 mg PO DAILY 12/30/13 01/17/21 Losartan [Cozaar] 12.5 mg PO DAILY 12/30/13 01/17/21 Simvastatin [Zocor] 20 mg PO HS 12/30/13 01/17/21 carvediloL [Coreg] 12.5 mg PO DAILY 12/30/13 01/17/21 Tiotropium [place] [Spiriva 1 inh PO BID 10/01/18 01/17/21 Respimat] Albuterol 2.5 mg INH Q4H PRN 02/10/20 01/17/21 Aspirin EC [Ecotrin] 81 mg PO DAILY 02/10/20 01/17/21 Sodium Chloride [[place] Saline] 1 - 2 spray NS DAILY PRN 02/10/20 01/17/21 Fluticasone/Salmeterol [Advair 1 each IH BID #1 pkg 09/04/20 01/17/21 250-50 Diskus] Levalbuterol [Xopenex] 1.25 mg INH RTQ4H 09/04/20 01/17/21 Cholecalciferol (Vitamin D3) 1 cap PO DAILY 01/17/21 01/17/21 [Vitamin D3] Cyanocobalamin (Vitamin B-12) 2,500 mcg PO DAILY 01/17/21 01/17/21 [Vitamin B12] Furosemide [Lasix] 20 mg PO DAILY 01/17/21 01/17/21 Gabapentin [Neurontin] 100 mg PO HS 01/17/21 01/17/21 predniSONE [Deltasone] 60 mg PO DAILY 5 Days #15 tablet 01/18/21 HYDROcod/ACETAM 5/325 [[place] 5/325] 1 tablet PO BID PRN #10 tablet 01/25/21 - Allergies Allergies/Adverse Reactions: Allergies Allergy/AdvReac Type Severity Reaction Status Date / Time Sulfa (Sulfonamide Allergy Unknown Unknown Verified 01/25/21 18:12 Antibiotics) tramadol HCl * [From Ultram] Allergy Unknown Unknown Verified 01/25/21 18:12 - Social History Does the pt smoke?: No Smoking Status: Never smoker Does the pt drink ETOH?: No Does the pt have substance abuse?: No - Immunizations Immunizations are current?: Yes - POLST Patient has POLST: No POLST Status: DNR PD ED PE EXPANDED - General General: Alert, No acute distress, Well developed/nourished - Cardiac Cardiac: Regular Rate, Radial strong equal, Pedal strong equal, Cap refill < 2 sec. No: Murmur Present - Respiratory Respiratory: Clear to ausultation ingrid. No: Distress, Labored - Abdomen Abdomen: Normal Bowel sounds, Tender to palpation (generally tender to the lower abdomen, non focal. non peritoneal) - Derm Derm: Normal color, Warm and dry. No: Rash - Extremities Extremities: Normal. No: Deformity, Tenderness - Neuro Neuro: Alert and Oriented X 3, CNII-XII intact - GCS Eye Opening: Spontaneous Motor: Obeys Commands Verbal: Oriented Total: 15 Results - Vitals Vitals: Vital Signs - 24 hr 01/25/21 01/25/21 18:12 20:16 Temperature 37.1 C Heart Rate 77 78 Respiratory 18 18 Rate Blood Pressure 157/80 H 173/81 H O2 Saturation 100 98 Oxygen O2 Source [] Room air O2 Source Nasal cannula - Labs Labs: Laboratory Tests 01/25/21 01/25/21 01/25/21 18:48 18:48 19:55 WBC 15.9 H RBC 4.00 L Hgb 12.1 Hct 38.3 MCV 95.8 MCH 30.3 MCHC 31.6 L RDW 12.2 Plt Count 269 MPV 10.3 Neut # (Auto) 13.7 H Lymph # (Auto) 0.9 L [place] # (Auto) 1.1 H Eos # (Auto) 0.0 Baso # (Auto) 0.0 Absolute Nucleated RBC 0.00 Nucleated RBC % 0.0 Sodium 138 Potassium 4.1 Chloride 99 L Carbon Dioxide 29 Anion Gap 10.0 BUN 15 Creatinine 0.7 Estimated GFR (MDRD) 80 L Glucose 126 H Calcium 9.4 Total Bilirubin 0.6 AST 20 ALT 19 Alkaline Phosphatase 53 Total Protein 6.3 L Albumin 3.9 Globulin 2.4 Albumin/Globulin Ratio 1.6 Lipase 31 Urine Color YELLOW Urine Clarity CLEAR Urine pH 6.5 Ur Specific [place] 1.015 Urine Protein NEGATIVE Urine Glucose (UA) NEGATIVE Urine Ketones NEGATIVE Urine Occult Blood TRACE-INTA Urine Nitrite NEGATIVE Urine Bilirubin NEGATIVE Urine Urobilinogen 0.2 (NORMAL) Ur Leukocyte Esterase TRACE H Urine RBC 0-5 Urine WBC 0-3 Ur Squamous Epith Cells RARE Squamous Urine Bacteria Rare Ur Microscopic Review INDICATED Urine Culture Comments INDICATED - Rads (name of study) CT abd Radiology: Final report received ([place] acute process to explain 2-month history of chronic lower abdominal pain. Pancreatic ductal dilation. Further assessment with nonemergent ERCP is recommended. Stenosis as above. No suspicious bony lesions) PD MEDICAL DECISION MAKING - ED course Complexity details: reviewed results, re-evaluated patient, considered differential, d/w patient ED course: 85-year-old female presents emergency department for evaluation of 3 months lower abdominal pain. She reports a bloating feeling as well as a burning sensation in her abdomen and low back. She is denying any fevers, changes in bowel habits dysuria urgency or frequency. She does have a history of COPD and was seen just over 1 week ago for COPD exacerbation and given a prednisone burst. On exam she did have some mild nonfocal tenderness of her lower abdomen. Nonperitoneal exam. Screening labs are most significant for a modest leukocytosis with white count of just over 15,000. This is likely secondary to the recent steroid burst. Her urine does not show findings of infection and she has been afebrile. CT of the abdomen is unremarkable for acute pathology. No suspicious bony lesions or masses. The cause of her pain is not clear at this time. Patient is able to ambulate with minimal assist. She will be discharged with a limited amount of hydrocodone and advised close follow-up with her primary care provider. I do suspect that there is some arthritis contributing to this more chronic pain. Departure - Departure Disposition: 01 Home, Self Care Clinical Impression: Lower abdominal pain Condition: Stable Record reviewed to determine appropriate education?: Yes Prescriptions: HYDROcod/ACETAM 5/325 [[place] 5/325] 1 tablet PO BID PRN #10 tablet PRN Reason: Pain Comments: Rica the CT of your abdomen was essentially unremarkable. There is nothing to discern the cause of the chronic lower abdominal or back pain. There were no obvious fracture seen in the thoracic or lumbar vertebrae of your back. Your screening labs today showed a mild white blood cell count elevation. But this is common after people have completed a course of steroids. Your urine showed no signs of infection and your electrolytes were otherwise unremarkable. It is likely that the cause of the pain could be some arthritis in the back. I am going to prescribe a limited amount of [place] for severe pain only. It is important that you discuss with Dr. Gage long-term management of this pain. The [place] will make you sleepy and at risk for falls so use it very cautiously. It will also make you constipated so please use MiraLAX to make sure you are having daily bowel movements I am prescribing a short course of narcotic pain medication for you. These are potentially dangerous and addictive medications that should be used carefully. These medications may constipate you. Take an [id number] stool softener (docusate) twice daily with plenty of water while taking these medications. If you go 24 hours without a bowel movement, take ozzt-yqn-chstrxy miralax, per package instructions. Do not drink or drive while taking these medications. If you received narcotic or sedating medications while in the emergency department, do not drive for 24 hours. Store this medication in a safe, secure place and out of reach of children. It is a violation of federal law to give or sell this medication to another person or to use in a manner other than prescribed. The ED will not refill narcotic prescriptions, including prescriptions lost or stolen. To dispose of unwanted medications: 1. [facility] at [address] in [place] has a medication drop box. They accept prescription medications (in pill form) Monday through Monday 9:00 a.m. to 5:00 p.m. 2. The [facility] accepts prescription medications (in pill form only) for disposal year round. Call for more information. 3. Contact the [facility] for the next [facility] sponsored prescription drug collection event. , [phone], or [phone]; Note that many narcotic pain relievers also contain Tylenol/acetaminophen. Please ensure that your total dose of acetaminophen from all sources does not exceed 3 g (3000 mg) per day.
[2021-01-25 19:06] LABS: ALBUMIN 3.9 g/dL (3.2-5.5); ALBUMIN/GLOBULIN RATIO 1.6 (1.0-2.2); BILIRUBIN,TOTAL 0.6 mg/dL (0.2-1.0); CALCIUM 9.4 mg/dL (8.5-10.3); CREATININE 0.7 mg/dL (0.4-1.0); POTASSIUM 4.1 mmol/L (3.5-5.0); TOTAL PROTEIN 6.3 g/dL (6.7-8.2)
[2021-01-25 20:11] LABS: BILIRUBIN,URINE NEGATIVE (NEGATIVE); GLUCOSE, URINE (UA) NEGATIVE (NEGATIVE); KETONES,URINE (UA) NEGATIVE (NEGATIVE); LEUKOCYTE ESTERASE, URINE TRACE (NEGATIVE); NITRITE,URINE NEGATIVE (NEGATIVE); OCCULT BLOOD,URINE TRACE-INTA (NEGATIVE); PH,URINE 6.5 PH (5.0-7.5); PROTEIN,URINE NEGATIVE (NEGATIVE); UROBILINOGEN,URINE 0.2 (NORMAL) E.U./dL (NORMAL)
[2021-01-25 20:22] LABS: CLARITY,URINE CLEAR (CLEAR)
[2021-01-25 20:34] LABS: BACTERIA,URINE Rare /HPF (None Seen); RBC,URINE 0-5 /HPF (0-5); SQUAMOUS EPITHELIAL CELL,UR RARE Squamous (<= Few); WBC,URINE 0-3 /HPF (0-5)
[2021-01-25] MEDS ORDERED: IOPAMIDOL-300 100 ML VIAL IVP ONE (20:50)
--- NOTE | 2021-01-25 21:02 | CT Report ---
PROCEDURE: Abdomen/Pelvis W INDICATIONS: 2 months low abdominal pain CONTRAST: IV CONTRAST: Isovue 300 ml: 90 PO CONTRAST: *NO PO CONTRAST TECHNIQUE: After the administration of IV contrast, 5 mm thick sections acquired from the diaphragms to the symp hysis. 5 mm thick coronal and sagittal reformats were acquired. For radiation dose reduction, the f ollowing was used: automated exposure control, adjustment of mA and/or kV according to patient size. COMPARISON: None. FINDINGS: Image quality: Excellent. ABDOMEN: Lung bases: Lung bases are clear. Heart size is normal. Solid organs: Liver and spleen are normal in size and enhancement. Gallbladder is within normal little its Biliary system is non dilated. Pancreas enhances normally. There is mild dilatation of the la creatic duct within the pancreatic neck and body measuring roughly 4 mm diameter. No adrenal nodules. Mild inferior pole renal scarring bilaterally. Kidneys demonstrate otherwise normal size and enhance ment, without hydronephrosis. Peritoneum and bowel: Bowel loops demonstrate normal wall thickness and caliber. No free fluid or a ir. Appendix not seen. No evidence of appendicitis. Nodes and vessels: No retroperitoneal or mesenteric adenopathy by size criteria. IVC is within demar l limits. There is severe plaque within the abdominal aorta, causing moderate stenosis. No aneurysm. Miscellaneous: No ventral hernias. PELVIS: Genitourinary: Bladder wall thickness is normal. Miscellaneous: No inguinal hernias or adenopathy. Bones: No suspicious bony lesions. No vertebral body compression fractures. IMPRESSION: 1. No acute process to explain 2 month history of chronic abdominal pain. 2. Pancreatic ductal dilatation. Further assessment with nonemergent outpatient follow-up ERCP is rec ommended. 3. Aortic plaque and moderate stenosis as above. 4. Reviewed by: Carlyle Haddad MD on 01/25/2021 9:01 PM PST Approved by: Carlyle Haddad MD on 01/25/2021 9:01 PM PST Station ID: [id number]
[2021-01-25 21:48] VITALS: BP 153/79
== END 2021-01-25 22:02 | disposition home or self-care (01) ==
LOC: EDUNIT# → ED 18:07
DX: R10.30 Lower abdominal pain, unspecified (principal); G89.29 Other chronic pain; I10 Essential (primary) hypertension; J44.9 Chronic obstructive pulmonary disease, unspecified; Z99.81 Dependence on supplemental oxygen
CPT/HCPCS: 36415; 74177; 80053; 81001; 83690; 85025; 87086; 99283; 99284; A9270; Q9967; 81003

== ENCOUNTER 2021-01-30 18:49 | Outpatient (CLI) | payer MEDICARE, OTHER | END 2021-01-30 18:50 | disposition EMS.NT | LOC: EMS 18:49 | DX: R10.9 Unspecified abdominal pain (principal); G89.29 Other chronic pain ==

== ENCOUNTER 2021-02-18 03:58 | Outpatient (CLI) | payer MEDICARE, OTHER | END 2021-02-18 03:59 | disposition short-term general hospital (02) | LOC: EMS 03:58 | DX: M54.9 Dorsalgia, unspecified (principal); R11.2 Nausea with vomiting, unspecified | CPT/HCPCS: A0425; A0427 ==

== ENCOUNTER 2021-02-23 13:39 | Outpatient (CLI) | payer MEDICARE, OTHER | END 2021-02-23 13:40 | disposition short-term general hospital (02) | LOC: EMS 13:39 | DX: K59.00 Constipation, unspecified (principal); R14.0 Abdominal distension (gaseous); Z99.81 Dependence on supplemental oxygen | CPT/HCPCS: A0425; A0429 ==

== ENCOUNTER 2021-03-09 13:23 | Outpatient (CLI) | payer MEDICARE, OTHER | END 2021-03-09 13:24 | disposition critical access hospital (66) | LOC: EMS 13:23 | DX: R53.1 Weakness (principal); R11.0 Nausea; R19.7 Diarrhea, unspecified | CPT/HCPCS: A0425; A0429 ==

== ENCOUNTER 2021-03-09 13:45 | Emergency (ER) | payer MEDICARE, OTHER ==
[2021-03-09] MEDS ORDERED: SODIUM CHLORIDE 0.9% 1,000 ML IV STA (14:02)
[2021-03-09 14:23] LABS: BASOPHILS % (AUTO) 0.4 %; EOSINOPHILS # (AUTO) 0.2 10^3/uL (0.0-0.7); EOSINOPHILS % (AUTO) 2.7 %; HCT - HEMATOCRIT 39.2 % (37.0-47.0); HGB - HEMOGLOBIN 12.5 g/dL (12.0-16.0); LYMPHOCYTES # (AUTO) 1.5 10^3/uL (1.5-3.5); LYMPHOCYTES % (AUTO) 20.4 %; MEAN CORPUSCULAR HEMOGLOBIN 30.6 pg (27.0-31.0); MEAN CORPUSCULAR HGB CONC 31.9 g/dL (32.0-36.0); MEAN CORPUSCULAR VOLUME 95.8 fL (81.0-99.0); MEAN PLATELET VOLUME 10.6 fL (7.9-10.8); MONOCYTES # (AUTO) 0.8 10^3/uL (0.0-1.0); MONOCYTES % (AUTO) 10.9 %; NEUTROPHILS # (AUTO) 4.8 10^3/uL (1.5-6.6); NEUTROPHILS % (AUTO) 64.9 %; PLT - PLATELET COUNT 254 10^3/uL (130-450); RED BLOOD COUNT 4.09 10^6/uL (4.20-5.40); RED CELL DISTRIBUTION WIDTH 13.6 % (12.0-15.0); WHITE BLOOD COUNT 7.4 x10^3/uL (4.8-10.8)
[2021-03-09 14:37] LABS: ALBUMIN 3.5 g/dL (3.2-5.5); ALBUMIN/GLOBULIN RATIO 1.3 (1.0-2.2); BILIRUBIN,TOTAL 0.4 mg/dL (0.2-1.0); CALCIUM 9.4 mg/dL (8.5-10.3); CREATININE 0.5 mg/dL (0.4-1.0); POTASSIUM 3.5 mmol/L (3.5-5.0); TOTAL PROTEIN 6.1 g/dL (6.7-8.2)
[2021-03-09 14:52] LABS: BILIRUBIN,URINE NEGATIVE (NEGATIVE); GLUCOSE, URINE (UA) NEGATIVE (NEGATIVE); KETONES,URINE (UA) TRACE mg/dL (NEGATIVE); LEUKOCYTE ESTERASE, URINE NEGATIVE (NEGATIVE); NITRITE,URINE NEGATIVE (NEGATIVE); OCCULT BLOOD,URINE TRACE-INTA (NEGATIVE); PROTEIN,URINE NEGATIVE (NEGATIVE); UROBILINOGEN,URINE 0.2 (NORMAL) E.U./dL (NORMAL)
[2021-03-09 14:53] LABS: CLARITY,URINE CLEAR (CLEAR)
--- NOTE | 2021-03-09 16:03 | ED Physician Documentation ---
PD HPI FEMALE - Stated complaint Stated Complaint: N/D FEMALE - Chief complaint Chief Complaint: Abd Pain - History obtained from History obtained from: Patient, Family, EMS - History of Present Illness Timing - onset: How many months ago (3) Timing - duration: Months (3) Timing - details: Gradual onset, Still present, Waxing and waning Associated symptoms: Pelvic pain, Dysuria, Urinary frequency Similar symptoms before: Diagnosis (UTI) Recently seen: Clinic, Emergency Dept - Additional information Additional information: 85-year-old female presents to the emergency department at the recommendation of the urologist to obtain a catheterized urine specimen. She has been having issues with back pain and pelvic fullness for more than 3 months. She has pain with urination she feels that she has to hold her lower abdomen up in order to get urine to come out. She has an appointment to see the urologist Dr. Aguilar at [facility]. His office is asked that we obtain a catheterized urine specimen. The patient has been using oxycodone for treatment of pain in her low back and pelvis. She also describes having a burning sensation going down the inside of her right leg when she coughs or Valsalvas. Review of Systems Constitutional: denies: Fever Ears: denies: Ear pain Nose: denies: Congestion Throat: denies: Sore throat Cardiac: denies: Chest pain / pressure, Palpitations Respiratory: reports: Cough (similar to always) GI: reports: Abdominal Pain (lower), Nausea, Diarrhea : reports: Dysuria, Frequency Skin: denies: Rash Musculoskeletal: denies: Neck pain, Back pain, Extremity pain PD PAST MEDICAL HISTORY - Past Medical History Cardiovascular: Hypertension, High cholesterol, [place] Respiratory: COPD Neuro: CVA Endocrine/Autoimmune: None GI: None SAFETY PERSON: None : Incontinence HEENT: None Psych: None Musculoskeletal: Osteoarthritis Derm: None - Past Surgical History Past Surgical History: Yes /SAFETY PERSON: Hysterectomy - Present Medications Home Medications: Ambulatory Orders Medication Instructions Recorded Confirmed Clopidogrel [Plavix] 75 mg PO DAILY 12/30/13 01/17/21 Losartan [Cozaar] 12.5 mg PO DAILY 12/30/13 01/17/21 Simvastatin [Zocor] 20 mg PO HS 12/30/13 01/17/21 carvediloL [Coreg] 12.5 mg PO DAILY 12/30/13 01/17/21 Tiotropium [place] [Spiriva 1 inh PO BID 10/01/18 01/17/21 Respimat] Albuterol 2.5 mg INH Q4H PRN 02/10/20 01/17/21 Aspirin EC [Ecotrin] 81 mg PO DAILY 02/10/20 01/17/21 Sodium Chloride [[place] Saline] 1 - 2 spray NS DAILY PRN 02/10/20 01/17/21 Fluticasone/Salmeterol [Advair 1 each IH BID #1 pkg 09/04/20 01/17/21 250-50 Diskus] Levalbuterol [Xopenex] 1.25 mg INH RTQ4H 09/04/20 01/17/21 Cholecalciferol (Vitamin D3) 1 cap PO DAILY 01/17/21 01/17/21 [Vitamin D3] Cyanocobalamin (Vitamin B-12) 2,500 mcg PO DAILY 01/17/21 01/17/21 [Vitamin B12] Furosemide [Lasix] 20 mg PO DAILY 01/17/21 01/17/21 Gabapentin [Neurontin] 100 mg PO HS 01/17/21 01/17/21 predniSONE [Deltasone] 60 mg PO DAILY 5 Days #15 tablet 01/18/21 HYDROcod/ACETAM 5/325 [Macon 5/325] 1 tablet PO BID PRN #10 tablet 01/25/21 - Allergies Allergies/Adverse Reactions: Allergies Allergy/AdvReac Type Severity Reaction Status Date / Time Sulfa (Sulfonamide Allergy Unknown Unknown Verified 03/09/21 13:53 Antibiotics) tramadol HCl * [From Ultram] Allergy Unknown Unknown Verified 03/09/21 13:53 - Social History Does the pt smoke?: No Smoking Status: Never smoker Does the pt drink ETOH?: No Does the pt have substance abuse?: No - Immunizations Immunizations are current?: Yes - POLST Patient has POLST: No POLST Status: DNR PD ED PE NORMAL - Vitals Vital signs reviewed: Yes (hypertensive mild) - General General: Alert and oriented X 3, No acute distress, Well developed/nourished, Other (thin elderly female ) - HEENT HEENT: Atraumatic, PERRL, EOMI - Neck Neck: Supple, no meningeal sign, No bony TTP - Cardiac Cardiac: RRR, No murmur - Respiratory Respiratory: No respiratory distress, Clear bilaterally - Abdomen Abdomen: Normal bowel sounds, Soft, Non tender, Non distended, No organomegaly - Back Back: No CVA TTP, Other (lower lumbar paraspinous muscle tenderness ) - Derm Derm: Normal color, Warm and dry, No rash - Extremities Extremities: No deformity, No edema - Neuro Neuro: Alert and oriented X 3, toy assembler 2-12 intact, No motor deficit, No sensory deficit, Normal speech Eye Opening: Spontaneous Motor: Obeys Commands Verbal: Oriented GCS Score: 15 - Psych Psych: Normal mood, Normal affect Results - Vitals Vitals: Vital Signs - 24 hr 03/09/21 03/09/21 13:53 15:13 Temperature 37 C Heart Rate 98 89 Respiratory 20 97 H Rate Blood Pressure 136/70 H 145/70 H O2 Saturation 98 99 Oxygen O2 Source [With Activity] Room air O2 Source Room air - Labs Labs: Laboratory Tests 03/09/21 03/09/21 03/09/21 14:15 14:15 14:15 WBC 7.4 RBC 4.09 L Hgb 12.5 Hct 39.2 MCV 95.8 MCH 30.6 MCHC 31.9 L RDW 13.6 Plt Count 254 MPV 10.6 Neut # (Auto) 4.8 Lymph # (Auto) 1.5 Stephenson # (Auto) 0.8 Eos # (Auto) 0.2 Baso # (Auto) 0.0 Absolute Nucleated RBC 0.00 Nucleated RBC % 0.0 Sodium 137 Potassium 3.5 Chloride 94 L Carbon Dioxide 33 H Anion Gap 10.0 BUN 9 Creatinine 0.5 Estimated GFR (MDRD) 118 Glucose 113 H Lactic Acid 0.9 Calcium 9.4 Total Bilirubin 0.4 AST 25 ALT 15 Alkaline Phosphatase 107 Total Protein 6.1 L Albumin 3.5 Globulin 2.6 Albumin/Globulin Ratio 1.3 Lipase 28 Urine Color Urine Clarity Urine pH Ur Specific [place] Urine Protein Urine Glucose (UA) Urine Ketones Urine Occult Blood Urine Nitrite Urine Bilirubin Urine Urobilinogen Ur Leukocyte Esterase Ur Microscopic Review Urine Culture Comments 03/09/21 14:23 WBC RBC Hgb Hct MCV MCH MCHC RDW Plt Count MPV Neut # (Auto) Lymph # (Auto) Stephenson # (Auto) Eos # (Auto) Baso # (Auto) Absolute Nucleated RBC Nucleated RBC % Sodium Potassium Chloride Carbon Dioxide Anion Gap BUN Creatinine Estimated GFR (MDRD) Glucose Lactic Acid Calcium Total Bilirubin AST ALT Alkaline Phosphatase Total Protein Albumin Globulin Albumin/Globulin Ratio Lipase Urine Color YELLOW Urine Clarity CLEAR Urine pH 7.0 Ur Specific High[place] 1.010 Urine Protein NEGATIVE Urine Glucose (UA) NEGATIVE Urine Ketones TRACE Urine Occult Blood TRACE-INTA Urine Nitrite NEGATIVE Urine Bilirubin NEGATIVE Urine Urobilinogen 0.2 (NORMAL) Ur Leukocyte Esterase NEGATIVE Ur Microscopic Review NOT INDICATED Urine Culture Comments NOT INDICATED Procedures - IVC sono (time) 1358 Bedside IVC sono: IVC measures (cm) (1.31), Dehydration (est 500ml deficit (not too dehydrated)) PD MEDICAL DECISION MAKING - ED course Complexity details: reviewed old records, reviewed results, re-evaluated patient, considered differential, d/w patient ED course: 85-year-old female with complaints of lower abdominal pain and difficulty with urination is describing symptoms consistent with pelvic organ prolapse. She has an appointment with urology in [place] as well as referral to a SAFETY PERSON specialist. Today in the emergency department we were asked to get a catheterized urine specimen which is entirely normal. The patient's symptoms are irritating and uncomfortable and she will need follow-up that she already has set up. Departure - Departure Disposition: 01 Home, Self Care Clinical Impression: Pelvic floor dysfunction in female Condition: Stable Instructions: Pelvic Organ Prolapse Follow-Up: Sal Gage MD [Primary Care Provider] - CHANNING AGUILAR MD [Physician No Access] - Comments: Rica, today it looks like the symptoms you are having with your bladder are not related to any type of infection. This does look like what you feel it feels like, which is a problem with your pelvic floor. Follow-up with Dr. Aguilar for further evaluation and treatment.
[2021-03-09 16:22] VITALS: BP 139/69
== END 2021-03-09 16:55 | disposition home or self-care (01) ==
LOC: EDUNIT# → ED 13:45
DX: N31.8 Other neuromuscular dysfunction of bladder (principal); I10 Essential (primary) hypertension
CPT/HCPCS: 36415; 51701; 80053; 81001; 81003; 83605; 83690; 85025; 87086; 99283; 99284

== ENCOUNTER 2021-03-13 22:13 | Outpatient (CLI) | payer MEDICARE, OTHER | END 2021-03-13 22:14 | disposition short-term general hospital (02) | LOC: EMS 22:13 | DX: R11.2 Nausea with vomiting, unspecified (principal); R19.7 Diarrhea, unspecified; R10.9 Unspecified abdominal pain; R53.1 Weakness | CPT/HCPCS: A0425; A0427 ==

== ENCOUNTER 2021-03-30 10:48 | Outpatient (CLI) | payer MEDICARE, OTHER | END 2021-03-30 10:49 | disposition short-term general hospital (02) | LOC: EMS 10:48 | DX: R06.02 Shortness of breath (principal); R05.9 Cough, unspecified; R53.1 Weakness | CPT/HCPCS: A0425; A0429 ==

== ENCOUNTER 2021-04-13 08:49 | Outpatient (CLI) | payer MEDICARE, OTHER | END 2021-04-13 08:50 | disposition short-term general hospital (02) | LOC: EMS 08:49 | DX: R11.2 Nausea with vomiting, unspecified (principal); R53.1 Weakness | CPT/HCPCS: A0425; A0427 ==

== ENCOUNTER 2022-01-09 13:04 | Emergency (ER) | payer MEDICARE, OTHER ==
[2022-01-09] MEDS ORDERED: MORPHINE 2 MG/ML CARPUJECT IVP STA (13:13)
--- NOTE | 2022-01-09 13:15 | ED Physician Documentation ---
History of Present Illness - Stated complaint Stated Complaint: COPD EXACERBATION - History obtained from History obtained from: Patient, EMS - Additonal information Additional information: 86-year-old woman with history of severe COPD presents by ambulance for respiratory distress with room air sats in the 70s at home and presents by ambulance on BiPAP. History is limited both due to respiratory distress and acuity as well as altered mental status. Review of Systems Unable to obtain: Confused PD PAST MEDICAL HISTORY - Past Medical History Cardiovascular: Hypertension, High cholesterol, [place] Respiratory: COPD Neuro: CVA Endocrine/Autoimmune: None GI: None DAY TRADER: None : Incontinence HEENT: None Psych: None Musculoskeletal: Osteoarthritis Derm: None - Past Surgical History Past Surgical History: Yes /DAY TRADER: Hysterectomy - Present Medications Home Medications: Ambulatory Orders Medication Instructions Recorded Confirmed Clopidogrel [Plavix] 75 mg PO DAILY 12/30/13 01/09/22 Losartan [Cozaar] 12.5 mg PO DAILY 12/30/13 01/09/22 Simvastatin [Zocor] 20 mg PO HS 12/30/13 01/09/22 carvediloL [Coreg] 12.5 mg PO DAILY 12/30/13 01/09/22 Tiotropium [place] [Spiriva 1 inh PO BID 10/01/18 01/09/22 Respimat] Albuterol 2.5 mg INH Q4H PRN 02/10/20 01/09/22 Aspirin EC [Ecotrin] 81 mg PO DAILY 02/10/20 01/09/22 Sodium Chloride [[place] Saline] 1 - 2 spray NS DAILY PRN 02/10/20 01/17/21 Fluticasone/Salmeterol [Advair 1 each IH BID #1 pkg 09/04/20 01/09/22 250-50 Diskus] Levalbuterol [Xopenex] 1.25 mg INH RTQ4H 09/04/20 01/17/21 Cholecalciferol (Vitamin D3) 1 cap PO DAILY 01/17/21 01/09/22 [Vitamin D3] Cyanocobalamin (Vitamin B-12) 2,500 mcg PO DAILY 01/17/21 01/09/22 [Vitamin B12] Furosemide [Lasix] 20 mg PO DAILY 01/17/21 01/09/22 Gabapentin [Neurontin] 100 mg PO HS 01/17/21 01/09/22 Esomeprazole Magnesium [Nexium] 40 mg PO DAILY 01/09/22 01/09/22 - Allergies Allergies/Adverse Reactions: Allergies Allergy/AdvReac Type Severity Reaction Status Date / Time Sulfa (Sulfonamide Allergy Unknown Unknown Verified 01/09/22 13:24 Antibiotics) tramadol HCl * [From Ultram] Allergy Unknown Unknown Verified 01/09/22 13:24 - Social History Does the pt smoke?: No Smoking Status: Never smoker Does the pt drink ETOH?: No Does the pt have substance abuse?: No - Immunizations Immunizations are current?: Yes - POLST Patient has POLST: No POLST Status: DNR PD ED PE NORMAL - Vitals Vital signs reviewed: Yes - General General: Other (She is alert and oriented to person and can answer simple questions, she is in severe respiratory distress. Frail and thin) - HEENT HEENT: PERRL, EOMI - Neck Neck: Other (Dry mucous membranes) - Cardiac Cardiac: Other (Tachycardic but regular without murmur) - Respiratory Respiratory: Other (Severe respiratory distress with increased I:E ratio and rhonchi but relatively good air movement.) - Abdomen Abdomen: Soft, Non tender - Back Back: No CVA TTP, No spinal TTP - Derm Derm: Normal color, Warm and dry - Extremities Extremities: No edema, No calf tenderness / cord - Neuro Eye Opening: Spontaneous Motor: Obeys Commands Verbal: Confused GCS Score: 14 Results - Vitals Vitals: Vital Signs - 24 hr 01/09/22 01/09/22 01/09/22 13:14 13:24 13:55 Temperature 96.1 C H Heart Rate 146 H 113 H 100 Respiratory 16 16 26 H Rate Blood Pressure 126/90 H 126/80 112/76 O2 Saturation 100 100 100 If not protocol : Oxygen Flow, liters/minute 01/09/22 01/09/22 01/09/22 14:57 15:09 15:15 Temperature 36.6 C Heart Rate 89 85 92 Respiratory 25 H 24 18 Rate Blood Pressure 93/62 93/62 O2 Saturation 99 100 If not protocol 15 15 15 : Oxygen Flow, liters/minute 01/09/22 01/09/22 01/09/22 15:45 16:00 16:17 Temperature Heart Rate 97 99 78 Respiratory 20 24 24 Rate Blood Pressure 92/60 97/65 O2 Saturation 97 100 If not protocol 15 6 4 : Oxygen Flow, liters/minute 01/09/22 01/09/22 01/09/22 16:30 16:34 18:48 Temperature 36.5 C Heart Rate 98 98 95 Respiratory 24 24 20 Rate Blood Pressure 98/66 98/66 O2 Saturation 98 98 98 If not protocol 6 6 4 : Oxygen Flow, liters/minute Oxygen O2 Source [With Activity] Room air O2 Source Nasal cannula Oxygen Flow Rate 15 - Labs Labs: Laboratory Tests 01/09/22 01/09/22 01/09/22 13:18 13:41 13:41 WBC 8.3 RBC 3.67 L Hgb 11.1 L Hct 36.5 L MCV 99.5 H MCH 30.2 MCHC 30.4 L RDW 13.1 Plt Count 233 MPV 10.8 Neut # (Auto) 4.9 Lymph # (Auto) 2.0 [place] # (Auto) 0.5 Eos # (Auto) 0.8 H Baso # (Auto) 0.0 Absolute Nucleated RBC 0.00 Nucleated RBC % 0.0 PT 11.2 INR 1.0 VBG pH VBG pCO2 VBG pO2 VBG HCO3 VBG Total CO2 VBG O2 Saturation VBG Base Excess Sodium Potassium Chloride Carbon Dioxide Anion Gap BUN Creatinine Estimated GFR (MDRD) Glucose Lactic Acid Calcium Phosphorus Magnesium Total Bilirubin AST ALT Alkaline Phosphatase B-Natriuretic Peptide Total Protein Albumin Globulin Albumin/Globulin Ratio Nasal Adenovirus (PCR) NOT DETECTED Nasal B. parapertussis DNA (PCR) NOT DETECTED Nasal Coronavir 229E PCR NOT DETECTED Nasal Coronavir HKU1 PCR NOT DETECTED Nasal Coronavir NL63 PCR NOT DETECTED Nasal Coronavir OC43 PCR NOT DETECTED Nasal Enterovir/Rhinovir PCR NOT DETECTED Nasal Influenza B PCR NOT DETECTED Nasal Influenza A PCR NOT DETECTED Nasal Parainfluen 1 PCR NOT DETECTED Nasal Parainfluen 2 PCR NOT DETECTED Nasal Parainfluen 3 PCR NOT DETECTED Nasal Parainfluen 4 PCR NOT DETECTED Nasal RSV (PCR) NOT DETECTED Nasal B.pertussis DNA PCR NOT DETECTED Nasal C.pneumoniae (PCR) NOT DETECTED Armando Human Metapneumo PCR NOT DETECTED Nasal M.pneumoniae (PCR) NOT DETECTED Nasal SARS-CoV-2 (PCR) NOT DETECTED 01/09/22 01/09/22 01/09/22 13:41 13:41 13:41 WBC RBC Hgb Hct MCV MCH MCHC RDW Plt Count MPV Neut # (Auto) Lymph # (Auto) [place] # (Auto) Eos # (Auto) Baso # (Auto) Absolute Nucleated RBC Nucleated RBC % PT INR VBG pH VBG pCO2 VBG pO2 VBG HCO3 VBG Total CO2 VBG O2 Saturation VBG Base Excess Sodium 140 Potassium 3.9 Chloride 100 L Carbon Dioxide 32 Anion Gap 8.0 BUN 13 Creatinine 0.6 Estimated GFR (MDRD) 95 Glucose 190 H Lactic Acid 1.5 Calcium 9.3 Phosphorus 7.0 H Magnesium 1.8 Total Bilirubin 0.4 AST 25 ALT 13 Alkaline Phosphatase 62 B-Natriuretic Peptide 441 H Total Protein 6.0 L Albumin 3.6 Globulin 2.4 Albumin/Globulin Ratio 1.5 Nasal Adenovirus (PCR) Nasal B. parapertussis DNA (PCR) Nasal Coronavir 229E PCR Nasal Coronavir HKU1 PCR Nasal Coronavir NL63 PCR Nasal Coronavir OC43 PCR Nasal Enterovir/Rhinovir PCR Nasal Influenza B PCR Nasal Influenza A PCR Nasal Parainfluen 1 PCR Nasal Parainfluen 2 PCR Nasal Parainfluen 3 PCR Nasal Parainfluen 4 PCR Nasal RSV (PCR) Nasal B.pertussis DNA PCR Nasal C.pneumoniae (PCR) Armando Human Metapneumo PCR Nasal M.pneumoniae (PCR) Nasal SARS-CoV-2 (PCR) 01/09/22 13:41 WBC RBC Hgb Hct MCV MCH MCHC RDW Plt Count MPV Neut # (Auto) Lymph # (Auto) [place] # (Auto) Eos # (Auto) Baso # (Auto) Absolute Nucleated RBC Nucleated RBC % PT INR VBG pH 7.245 L VBG pCO2 71.4 H VBG pO2 78.0 H VBG HCO3 31.0 H VBG Total CO2 33.0 H VBG O2 Saturation 92.0 H VBG Base Excess 4.0 H Sodium Potassium Chloride Carbon Dioxide Anion Gap BUN Creatinine Estimated GFR (MDRD) Glucose Lactic Acid Calcium Phosphorus Magnesium Total Bilirubin AST ALT Alkaline Phosphatase B-Natriuretic Peptide Total Protein Albumin Globulin Albumin/Globulin Ratio Nasal Adenovirus (PCR) Nasal B. parapertussis DNA (PCR) Nasal Coronavir 229E PCR Nasal Coronavir HKU1 PCR Nasal Coronavir NL63 PCR Nasal Coronavir OC43 PCR Nasal Enterovir/Rhinovir PCR Nasal Influenza B PCR Nasal Influenza A PCR Nasal Parainfluen 1 PCR Nasal Parainfluen 2 PCR Nasal Parainfluen 3 PCR Nasal Parainfluen 4 PCR Nasal RSV (PCR) Nasal B.pertussis DNA PCR Nasal C.pneumoniae (PCR) Armando Human Metapneumo PCR Nasal M.pneumoniae (PCR) Nasal SARS-CoV-2 (PCR) PD MEDICAL DECISION MAKING - ED course ED course: 86-year-old woman presents with severe respiratory distress. She is on BiPAP and looking like she needs intubation on arrival. I reviewed the chart, advance care planning from last visit in patient noted that she was DNR but does not mention intubation specifically. I tried calling the immediately after initial evaluation and it was no answer. I asked the patient specifically if she wanted to be on life support and she said no just keep me comfortable. Given the previous wishes for DNR and to the above the decision not to intubate was made pending the 's arrival. 1323: and daughter now at bedside and agree prior wishes were for DNI. 1426:That said over the next hour after a few more breathing treatments she looked much better and we were able to de-escalate her to a nasal cannula. She was talking more comfortably albeit still a bit labored and her altered mental status resolved. Review of the labs show she has probably acute on chronic CO2 retention with acidosis. 1606: She still appears comfortable and is currently on 3.5 L nasal cannula, she is tachypneic though in speaking in short sentences. The decision to admit was made a couple of hours ago but I am now told there is no bed and she will board in the emergency department. I wrote for scheduled antibiotics, diet, PPI and DVT prophylaxis, hospital bed etc. 1853: Care to overnight emergency physician at 7 PM shift change. - Critical Care Time(min): 45 Time Includes: Direct patient care, Review records, Reassess patient, Document care, Coordinate care, Medical consult, Family consult for tx dec Data interpretation: Labs, Pulse ox Procedures included in critical care time: Peripheral IV Departure - Departure Disposition: 66 [facility] DC/Xfer Clinical Impression: COPD exacerbation Respiratory failure Qualifiers: Chronicity: acute on chronic Respiratory failure complication: hypoxia and hypercapnia Qualified Code(s): J96.21 - Acute and chronic respiratory failure with hypoxia Condition: Serious
[2022-01-09] MEDS ORDERED: methylPREDNISolone SUCCINATE 125 MG/2 ML VIAL IVP STA (13:23)
[2022-01-09] MEDS ORDERED: ALBUTEROL NEB 2.5 MG/3 ML INH STA (13:23)
[2022-01-09] MEDS ORDERED: ALBUTEROL NEB 2.5 MG/3 ML INH ONE (13:46)
[2022-01-09 13:47] LABS: BASOPHILS % (AUTO) 0.5 %; EOSINOPHILS # (AUTO) 0.8 10^3/uL (0.0-0.7); HCT - HEMATOCRIT 36.5 % (37.0-47.0); HGB - HEMOGLOBIN 11.1 g/dL (12.0-16.0); MEAN CORPUSCULAR HEMOGLOBIN 30.2 pg (27.0-31.0); MEAN CORPUSCULAR HGB CONC 30.4 g/dL (32.0-36.0); MEAN CORPUSCULAR VOLUME 99.5 fL (81.0-99.0); MEAN PLATELET VOLUME 10.8 fL (7.9-10.8); MONOCYTES # (AUTO) 0.5 10^3/uL (0.0-1.0); MONOCYTES % (AUTO) 6.1 %; NEUTROPHILS # (AUTO) 4.9 10^3/uL (1.5-6.6); PLT - PLATELET COUNT 233 10^3/uL (130-450); RED BLOOD COUNT 3.67 10^6/uL (4.20-5.40); RED CELL DISTRIBUTION WIDTH 13.1 % (12.0-15.0); WHITE BLOOD COUNT 8.3 x10^3/uL (4.8-10.8)
[2022-01-09 13:53] LABS: PT - PROTHROMBIN TIME 11.2 secs (9.9-12.6)
--- NOTE | 2022-01-09 13:53 | XRAY Report ---
PROCEDURE: Chest 1 View X-Ray INDICATIONS: resp distress TECHNIQUE: One view of the chest was acquired. COMPARISON: Chest radiographs 01/17/2021 FINDINGS: Surgical changes and devices: None. Lungs and pleura: Lungs are mildly hyperexpanded. Patient is significantly rotated towards the right . However, no definite focal consolidation is seen. No pleural effusion or pneumothorax. Mediastinum: Mediastinal contours appear normal. Heart size is normal. Bones and chest wall: No suspicious bony lesions. Overlying soft tissues appear unremarkable. IMPRESSION: No acute cardiopulmonary abnormality identified given mildly compromised evaluation due to patient po sitioning. Reviewed by: Juan R Hutchison MD on 01/09/2022 1:51 PM PST Approved by: Juan R Hutchison MD on 01/09/2022 1:51 PM [facility] Station ID: [id number]
[2022-01-09 14:01] LABS: VBG PCO2 71.4 mmHg (41-51); VBG PH 7.245 (7.31-7.41)
[2022-01-09 14:02] LABS: ALBUMIN 3.6 g/dL (3.2-5.5); ALBUMIN/GLOBULIN RATIO 1.5 (1.0-2.2); BILIRUBIN,TOTAL 0.4 mg/dL (0.2-1.0); CALCIUM 9.3 mg/dL (8.5-10.3); CREATININE 0.6 mg/dL (0.4-1.0); MAGNESIUM 1.8 mg/dL (1.7-2.8); POTASSIUM 3.9 mmol/L (3.5-5.0)
[2022-01-09 14:48] LABS: B. PARAPERTUSSIS- RESP PCR PAN NOT DETECTED; B. PERTUSSIS- RESP PCR PANEL NOT DETECTED; C. PNEUMONIAE- RESP PCR PANEL NOT DETECTED; CORONAVIRUS 229E-RESP PCR NOT DETECTED; CORONAVIRUS HKU1-RESP PCR NOT DETECTED; CORONAVIRUS NL63-RESP PCR NOT DETECTED; CORONAVIRUS OC43-RESP PCR NOT DETECTED; HUMAN METAPNEUMOVIRUS NOT DETECTED; INFLUENZA A- RESP PCR PANEL NOT DETECTED; INFLUENZA B - RESP PCR PANEL NOT DETECTED; M. PNEUMONIAE- RESP PCR PANEL NOT DETECTED; PARAINFLUENZA VIRUS 1 NOT DETECTED; PARAINFLUENZA VIRUS 2 NOT DETECTED; PARAINFLUENZA VIRUS 3 NOT DETECTED; PARAINFLUENZA VIRUS 4 NOT DETECTED; RHINOVIRUS/ENTEROVIRUS NOT DETECTED; RSV- RESP PCR PANEL NOT DETECTED; SARS-CoV-2 -RESP PCR PANEL NOT DETECTED
[2022-01-09] MEDS ORDERED: ACETAMINOPHEN 500 MG TABLET PO PRN (16:04)
[2022-01-09] MEDS ORDERED: ONDANSETRON 4 MG/2 ML VIAL IVP PRN (16:04)
[2022-01-09] MEDS ORDERED: cefTRIAXone 1 GM in SODIUM CHLORIDE 0.9% MINIBAG 100 ML IV STA (16:05)
[2022-01-09] MEDS ORDERED: ALBUTEROL NEB 2.5 MG/3 ML INH PRN (16:05)
[2022-01-09] MEDS ORDERED: IPRATROPIUM/ALBUTEROL 3 ML NEB INH PRN (16:05)
[2022-01-09] MEDS ORDERED: AZITHROMYCIN INJ 500 MG in SODIUM CHLORIDE 0.9% 250 ML IV STA (16:05)
[2022-01-09] MEDS: cefTRIAXone 1 GM VIAL IVP SCH (17:26)
[2022-01-09] MEDS: methylPREDNISolone SUCCINATE 40 MG/ML VIAL IVP SCH (20:50)
[2022-01-10] MEDS ORDERED: PANTOPRAZOLE 40 MG TABLET PO SCH (07:00)
[2022-01-10 08:04] LABS: CALCIUM 9.4 mg/dL (8.5-10.3); CREATININE 0.6 mg/dL (0.4-1.0); POTASSIUM 4.2 mmol/L (3.5-5.0)
[2022-01-10 08:08] LABS: BASOPHILS % (AUTO) 0.2 %; HCT - HEMATOCRIT 33.2 % (37.0-47.0); HGB - HEMOGLOBIN 10.3 g/dL (12.0-16.0); LYMPHOCYTES # (AUTO) 0.5 10^3/uL (1.5-3.5); LYMPHOCYTES % (AUTO) 8.5 %; MEAN CORPUSCULAR HEMOGLOBIN 29.7 pg (27.0-31.0); MEAN CORPUSCULAR VOLUME 95.7 fL (81.0-99.0); MONOCYTES # (AUTO) 0.2 10^3/uL (0.0-1.0); MONOCYTES % (AUTO) 3.2 %; NEUTROPHILS # (AUTO) 5.5 10^3/uL (1.5-6.6); NEUTROPHILS % (AUTO) 87.8 %; PLT - PLATELET COUNT 182 10^3/uL (130-450); RED BLOOD COUNT 3.47 10^6/uL (4.20-5.40); WHITE BLOOD COUNT 6.3 x10^3/uL (4.8-10.8)
[2022-01-10] MEDS: cefTRIAXone 1 GM VIAL IVP SCH (08:45)
[2022-01-10] MEDS: methylPREDNISolone SUCCINATE 40 MG/ML VIAL IVP SCH (08:46)
[2022-01-10] MEDS ORDERED: cefTRIAXone 1 GM in SODIUM CHLORIDE 0.9% MINIBAG 100 ML IV SCH (09:00)
[2022-01-10] MEDS ORDERED: ENOXAPARIN 40 MG/0.4 ML SYRINGE SUBQ SCH (09:00)
[2022-01-10] MEDS ORDERED: AZITHROMYCIN INJ 500 MG in SODIUM CHLORIDE 0.9% 250 ML IV SCH (09:00)
[2022-01-10] MEDS ORDERED: ENOXAPARIN 30 MG/0.3 ML SYRINGE SUBQ SCH (09:00)
--- NOTE | 2022-01-10 09:13 | ED Physician Documentation ---
ED Addendum - Addendum Addendum: 01/10/22 09:09 The patient is resting comfortably on 2 L nasal cannula with saturation of 100%. Unlabored breathing at this time. She had had some of her breakfast of eggs and toast. She was asking for and received caffeinated coffee which she does at home. She states she has home oxygen that she does not typically wear unless she feels she needs it. When she does she ranges from 1 up to 3-1/2 L. She had been using 3-1/2 L the last couple of days because of her worse breathing. She has been having cough with sputum production and feels she could not unclog her mucus. She was asking for her daily medications as well. Objective: She is awake alert conversant. Unlabored breathing. Oxygenation level is good. Blood pressure is adequate though had been slightly low to low normal yesterday into today. No notable edema. Lungs show some mild expiratory wheezes diffusely without crackles. She is thin and frail otherwise. Assessment: Exacerbation of underlying lung disease with pneumonia Plan she had orders for scheduled steroids IV and dose of IV antibiotics. She had as needed of DuoNeb. She states she typically does nebulizer 3 times daily at home sounds like leave albuterol. She seemed to do okay with a DuoNeb here yesterday. I will order her regular nebulizer treatments to reproduce home therapy. She will stay on the current 2 L nasal cannula and seems to be doing adequate for her. I looked at her med list from home and will write for the heart medications regularly as well has her gabapentin at night. She already had pantoprazole ordered. I will hold her losartan blood pressure medicine for now as her blood pressure is adequate to slightly low here. 's I assume the patient still would need hospitalization given the difficulty with breathing that she presented with along with pneumonia. However we will see how bed spacing becomes available and the patient may improve well enough in the ER before bed available in the next day or 2.
[2022-01-10] MEDS ORDERED: FUROSEMIDE 20 MG TABLET PO SCH (10:00)
[2022-01-10] MEDS ORDERED: CLOPIDOGREL 75 MG TABLET PO SCH (10:00)
[2022-01-10] MEDS ORDERED: carvediloL 12.5 MG TABLET PO SCH (10:00)
[2022-01-10] MEDS: IPRATROPIUM/ALBUTEROL 3 ML NEB INH SCH ×2 (10:17→15:52)
[2022-01-10 12:21] VITALS: BP 110/55
--- NOTE | 2022-01-10 14:32 | ED Physician Documentation ---
ED Addendum - Addendum Addendum: 01/10/22 14:31 Doing better this afternoon, I checked on her around noon and her oxygen's were fine, but she did not feel "ready" to go home. At this time though she has been ambulating in the department on her regular supplemental oxygen with basely 100% pulse oximetry. Disposition: Discharged home Condition: Stable Diagnosis: 1. Respiratory failure 2. COPD flare Note that she was never admitted to the hospital due to lack of beds
[2022-01-10] MEDS ORDERED: GABAPENTIN 100 MG CAPSULE PO SCH (21:00)
== END 2022-01-10 17:10 | disposition home or self-care (01) ==
LOC: EDUNIT# → ED 13:04
DX: J44.1 Chronic obstructive pulmonary disease with (acute) exacerbation (principal); J96.21 Acute and chronic respiratory failure with hypoxia; J18.9 Pneumonia, unspecified organism; Z20.822 Contact with and (suspected) exposure to COVID-19
CPT/HCPCS: 36415; 71045; 80048; 80053; 82803; 83605; 83735; 83880; 84100; 85025; 85610; 87040; 87633; 94640; 96365; 96366; 96375; 96376; 99285; 99291; A9270; J1650

== ENCOUNTER → 2022-01-09 | Outpatient (CLI) | payer MEDICARE, OTHER | END | disposition critical access hospital (66) | LOC: EMS 12:49 | DX: R06.02 Shortness of breath (principal) | CPT/HCPCS: A0425; A0427 ==

== ENCOUNTER 2022-05-24 21:15 | Outpatient (CLI) | payer MEDICARE, OTHER | END 2022-05-24 21:16 | disposition critical access hospital (66) | LOC: EMS 21:15 | DX: R06.02 Shortness of breath (principal); R05.9 Cough, unspecified; R06.2 Wheezing; J44.9 Chronic obstructive pulmonary disease, unspecified; Z99.81 Dependence on supplemental oxygen; R63.8 Other symptoms and signs concerning food and fluid intake | CPT/HCPCS: A0425; A0427 ==

== ENCOUNTER 2022-05-24 21:37 | Emergency (ER) | payer MEDICARE, OTHER ==
[2022-05-24 22:08] LABS: BASOPHILS % (AUTO) 0.1 %; EOSINOPHILS # (AUTO) 0.6 10^3/uL (0.0-0.7); EOSINOPHILS % (AUTO) 8.3 %; HGB - HEMOGLOBIN 12.4 g/dL (12.0-16.0); LYMPHOCYTES # (AUTO) 1.5 10^3/uL (1.5-3.5); LYMPHOCYTES % (AUTO) 22.1 %; MEAN CORPUSCULAR HEMOGLOBIN 29.3 pg (27.0-31.0); MEAN CORPUSCULAR HGB CONC 30.2 g/dL (32.0-36.0); MEAN CORPUSCULAR VOLUME 96.9 fL (81.0-99.0); MEAN PLATELET VOLUME 10.9 fL (7.9-10.8); MONOCYTES # (AUTO) 0.7 10^3/uL (0.0-1.0); MONOCYTES % (AUTO) 10.5 %; NEUTROPHILS % (AUTO) 58.6 %; PLT - PLATELET COUNT 194 10^3/uL (130-450); RED BLOOD COUNT 4.23 10^6/uL (4.20-5.40); RED CELL DISTRIBUTION WIDTH 12.9 % (12.0-15.0); WHITE BLOOD COUNT 6.9 x10^3/uL (4.8-10.8)
[2022-05-24 22:20] LABS: ALBUMIN 3.7 g/dL (3.2-5.5); ALBUMIN/GLOBULIN RATIO 1.3 (1.0-2.2); BILIRUBIN,TOTAL 0.8 mg/dL (0.2-1.0); CALCIUM 9.5 mg/dL (8.5-10.3); CREATININE 0.5 mg/dL (0.4-1.0); POTASSIUM 3.9 mmol/L (3.5-5.0); TOTAL PROTEIN 6.5 g/dL (6.7-8.2)
--- NOTE | 2022-05-24 22:39 | XRAY Report ---
PROCEDURE: Chest 1 View X-Ray INDICATIONS: cough TECHNIQUE: One view of the chest was acquired. COMPARISON: 01/09/2022 FINDINGS: Surgical changes and devices: None. Lungs and pleura: Oval low-density possible opacities at the diaphragmatic surface at the lung bases . No dense consolidation or pleural effusion. Mediastinum: Mediastinal contours appear normal. Heart size is normal. Bones and chest wall: No suspicious bony lesions. Overlying soft tissues appear unremarkable. IMPRESSION: Possible low density subpleural opacities near the costophrenic angles. No dense consolidation or ple ural effusion. Consider surveillance imaging. These could represent pleural nodules versus artifact. Reviewed by: Manfred Marcial MD on 05/24/2022 10:38 PM PDT Approved by: Manfred Marcial MD on 05/24/2022 10:38 PM PDT Station ID: [id number]
[2022-05-24 22:56] LABS: B. PARAPERTUSSIS- RESP PCR PAN NOT DETECTED; B. PERTUSSIS- RESP PCR PANEL NOT DETECTED; C. PNEUMONIAE- RESP PCR PANEL NOT DETECTED; CORONAVIRUS 229E-RESP PCR NOT DETECTED; CORONAVIRUS HKU1-RESP PCR NOT DETECTED; CORONAVIRUS NL63-RESP PCR NOT DETECTED; CORONAVIRUS OC43-RESP PCR NOT DETECTED; HUMAN METAPNEUMOVIRUS NOT DETECTED; INFLUENZA A- RESP PCR PANEL NOT DETECTED; INFLUENZA B - RESP PCR PANEL NOT DETECTED; M. PNEUMONIAE- RESP PCR PANEL NOT DETECTED; PARAINFLUENZA VIRUS 1 NOT DETECTED; PARAINFLUENZA VIRUS 2 NOT DETECTED; PARAINFLUENZA VIRUS 3 NOT DETECTED; PARAINFLUENZA VIRUS 4 NOT DETECTED; RHINOVIRUS/ENTEROVIRUS NOT DETECTED; RSV- RESP PCR PANEL NOT DETECTED; SARS-CoV-2 -RESP PCR PANEL NOT DETECTED
--- NOTE | 2022-05-25 00:09 | ED Physician Documentation ---
History of Present Illness - Stated complaint Stated Complaint: SOA - Chief complaint Chief Complaint: Resp - History obtained from History obtained from: Patient, EMS - Additonal information Additional information: 86-year-old woman with history of COPD on 4 L of home oxygen presents with shortness of breath progressive over the past couple of days. Patient denies fever, cough, chest pain, nausea vomiting. EMS gave 1 nebulizer and 62.5 of Solu-Medrol in route. Patient states that she has been dwindling for several months now and has been suffering from thrush that makes it difficult for her to eat and drink. Endorses significant weight loss. Review of Systems Constitutional: denies: Fever Cardiac: denies: Chest pain / pressure Respiratory: reports: Dyspnea. denies: Cough GI: denies: Abdominal Pain, Nausea, Vomiting PD PAST MEDICAL HISTORY - Past Medical History Cardiovascular: Hypertension, High cholesterol, ND Respiratory: COPD Neuro: CVA Endocrine/Autoimmune: None GI: None [employer]: None : Incontinence HEENT: None Psych: None Musculoskeletal: Osteoarthritis Derm: None - Past Surgical History Past Surgical History: Yes /[employer]: Hysterectomy - Present Medications Home Medications: Ambulatory Orders Medication Instructions Recorded Confirmed Clopidogrel [Plavix] 75 mg PO DAILY 12/30/13 01/09/22 Losartan [Cozaar] 12.5 mg PO DAILY 12/30/13 01/09/22 Simvastatin [Zocor] 20 mg PO HS 12/30/13 01/09/22 carvediloL [Coreg] 12.5 mg PO DAILY 12/30/13 01/09/22 Tiotropium Harris [Spiriva 1 inh PO BID 10/01/18 01/09/22 Respimat] Albuterol 2.5 mg INH Q4H PRN 02/10/20 01/09/22 Aspirin EC [Ecotrin] 81 mg PO DAILY 02/10/20 01/09/22 Sodium Chloride [Maynard Saline] 1 - 2 spray NS DAILY PRN 02/10/20 01/17/21 Fluticasone/Salmeterol [Advair 1 each IH BID #1 pkg 09/04/20 01/09/22 250-50 Diskus] Levalbuterol [Xopenex] 1.25 mg INH RTQ4H 09/04/20 01/17/21 Cholecalciferol (Vitamin D3) 1 cap PO DAILY 01/17/21 01/09/22 [Vitamin D3] Cyanocobalamin (Vitamin B-12) 2,500 mcg PO DAILY 01/17/21 01/09/22 [Vitamin B12] Furosemide [Lasix] 20 mg PO DAILY 01/17/21 01/09/22 Gabapentin [Neurontin] 100 mg PO HS 01/17/21 01/09/22 Esomeprazole Magnesium [Nexium] 40 mg PO DAILY 01/09/22 01/09/22 Doxycycline [Vibramycin] 100 mg PO BID #14 tablet 01/10/22 predniSONE [Deltasone] 20 mg PO [id number] #[id number] tab 01/10/22 predniSONE [Prednisone 21-TAB dose 60 mg PO QDAC 6 Days #21 tab 05/25/22 pack] - Allergies Allergies/Adverse Reactions: Allergies Allergy/AdvReac Type Severity Reaction Status Date / Time Sulfa (Sulfonamide Allergy Unknown Unknown Verified 05/24/22 21:41 Antibiotics) tramadol HCl * [From Ultram] Allergy Unknown Unknown Verified 05/24/22 21:41 - Social History Does the pt smoke?: No Smoking Status: Never smoker Does the pt drink ETOH?: No Does the pt have substance abuse?: No - Immunizations Immunizations are current?: Yes - POLST Patient has POLST: No POLST Status: DNR PD ED PE NORMAL - Vitals Vital signs reviewed: Yes - General General: Alert and oriented X 3, No acute distress, Other (Emaciated) - HEENT HEENT: Atraumatic, PERRL, EOMI, Moist mucous membranes, Pharynx benign - Neck Neck: Supple, no meningeal sign - Cardiac Cardiac: RRR - Respiratory Respiratory: No respiratory distress, Clear bilaterally - Abdomen Abdomen: Non tender, Non distended - Derm Derm: Normal color, Warm and dry - Psych Psych: Normal mood, Normal affect Results - Vitals Vitals: Vital Signs - 24 hr 05/24/22 05/24/22 05/24/22 21:41 21:50 23:50 Temperature 36.5 C Heart Rate 94 97 108 H Respiratory 16 24 16 Rate Blood Pressure 157/90 H 157/90 H 134/58 H O2 Saturation 100 97 100 If not protocol 4 4 : Oxygen Flow, liters/minute Oxygen O2 Source [With Activity] Room air O2 Source Nasal cannula - Labs Labs: Laboratory Tests 05/24/22 05/24/22 05/24/22 21:54 22:04 22:04 WBC 6.9 RBC 4.23 Hgb 12.4 Hct 41.0 MCV 96.9 MCH 29.3 MCHC 30.2 L RDW 12.9 Plt Count 194 MPV 10.9 H Neut # (Auto) 4.0 Lymph # (Auto) 1.5 Woodson # (Auto) 0.7 Eos # (Auto) 0.6 Baso # (Auto) 0.0 Absolute Nucleated RBC 0.00 Nucleated RBC % 0.0 Sodium 137 Potassium 3.9 Chloride 98 L Carbon Dioxide 32 Anion Gap 7.0 BUN 10 Creatinine 0.5 Estimated GFR (MDRD) 118 Glucose 133 H Calcium 9.5 Total Bilirubin 0.8 AST 21 ALT 12 Alkaline Phosphatase 60 Total Protein 6.5 L Albumin 3.7 Globulin 2.8 Albumin/Globulin Ratio 1.3 Nasal Adenovirus (PCR) NOT DETECTED Nasal B. parapertussis DNA (PCR) NOT DETECTED Nasal Coronavir 229E PCR NOT DETECTED Nasal Coronavir HKU1 PCR NOT DETECTED Nasal Coronavir NL63 PCR NOT DETECTED Nasal Coronavir OC43 PCR NOT DETECTED Nasal Enterovir/Rhinovir PCR NOT DETECTED Nasal Influenza B PCR NOT DETECTED Nasal Influenza A PCR NOT DETECTED Nasal Parainfluen 1 PCR NOT DETECTED Nasal Parainfluen 2 PCR NOT DETECTED Nasal Parainfluen 3 PCR NOT DETECTED Nasal Parainfluen 4 PCR NOT DETECTED Nasal RSV (PCR) NOT DETECTED Nasal B.pertussis DNA PCR NOT DETECTED Nasal C.pneumoniae (PCR) NOT DETECTED Armando Human Metapneumo PCR NOT DETECTED Nasal M.pneumoniae (PCR) NOT DETECTED Nasal SARS-CoV-2 (PCR) NOT DETECTED PD Medical Decision Making - ED course ED course: 86-year-old woman with history of end-stage COPD presents with shortness of breath progressive over the past couple of days, prompting her family to call EMS tonight. They gave 1 nebulizer and 62.5 mg of Solu-Medrol in route with improvement. Patient is on 4 L of home oxygen at baseline and is satting 100% here in the emergency department on 4 L. She has no wheezing on lung exam. Lab work noncontributory. Chest x-ray without evidence of acute cardiopulmonary disease per my interpretation. Possible BL subpleural nodules versus artifact on CXR per outside radiologist. She can see her pcp for follow up imaging as needed. script sent for steroids to pharmacy and advised her to Follow-up with palliative care as well. Return precautions given. Departure - Departure Disposition: 01 Home, Self Care Clinical Impression: COPD (chronic obstructive pulmonary disease) Condition: Stable Instructions: COPD Dc Prescriptions: predniSONE [Prednisone 21-TAB dose pack] 60 mg PO QDAC 6 Days #21 tab Comments: You were seen in the emergency department for evaluation of your COPD. EMS gave you a breathing treatment and steroid treatment on the way here and upon arrival your oxygen level was good and breathing had improved. Please follow up with your primary care provider as well as with palliative care ([employer] Jenise Martinez). Return to the ED for new or worsening symptoms or other concerns. Electronic prescription for prednisone sent to [facility] electronically.
[2022-05-25 00:54] VITALS: BP 138/81
== END 2022-05-25 01:39 | disposition home or self-care (01) ==
LOC: ED 21:37
DX: J44.9 Chronic obstructive pulmonary disease, unspecified (principal); Z66 Do not resuscitate
CPT/HCPCS: 36415; 80053; 85025; 87633; 99284